=== PATIENT | male | born 1980 ===

== ENCOUNTER 2023-08-03 13:51 | Outpatient (AMB) | payer BC, SELFPAY ==
--- NOTE | 2023-08-03 14:03 | A.OFFVIS_ITS ---
Intake Visit Reasons: r 2nd opinion for nocturia and urinary frequency Intake Note: NEW Patient presents today to established treatment for a 2nd opinion on Nocturia & Urinary Frequency: Meds- None Allergies to Antibiotic- No Known Allergies Blood Thinner- None Post Void Residual: 18mL Supervising Film Or Videotape Editor Required: No Accompanied by: Self / Same As Patient Allergies No Known Allergies Allergy (Verified 08/03/23 14:14) Medication List - Last Reconciled 08/03/23 by Briseyda David MD No Known Home Meds HPI Comments Details: Michael is a 43-year-old male who is here for evaluation and 2nd opinion due to lower urinary symptoms of frequency, hesitancy and straining for urination. The patient states he has had these symptoms for many years. He states that he saw a urologist at [facility] a few years ago he does not remember the exact timeframe. He recalls being told there was a blockage in the urethra. He states he did some reading and read that a mesh with hernia repair could cause a blockage in the urethra. I discussed with the patient that I am not aware of hernia repairs with mesh causing a blockage within the urethra. The patient states that he has recurrent left inguinal hernia. The patient has seen a general surgeon who referred him to [facility] urology to have a urological evaluation prior to hernia repair. We do not have the records from [facility]. I have discussed further evaluation to evaluate for urethral stricture, and other causes for obstructive voiding symptoms. The patient states he prefers a male urologist. Will schedule follow-up with Dr. Caceres and we will request records from [facility] as well as any imaging he has had within the last 1-2 years. The patient filled out a medical release form. Urinalysis is negative for blood or leukocytes. No signs of infection. Bladder scan PVR 18 mL. [facility] Surgical History History of surgery Hx of splenectomy Hx of hernia repair Social History Alcohol intake: current Alcohol intake frequency: holidays/special occasions only Patient Tobacco Use Status: Never used Tobacco Review of Systems Const All systems reviewed & are unremarkable except as noted in HPI and below Reports no additional complaints Eyes Reports no additional complaints ENT Reports no additional complaints Card Reports no additional complaints Resp Reports no additional complaints GI Reports no additional complaints Reports as per HPI Musc Reports no additional complaints Skin/Breast Reports system reviewed and no additional complaints, except as documented Neuro Reports no additional complaints Psych Reports no additional complaints Endo Reports no additional complaints Tomi/Lymph Reports no additional complaints Aller/Immun Reports no additional complaints Physical Exam Const General: healthy appearing, no acute distress and well developed Orientation/consciousness: patient oriented x3 HEENT Head: Yes normocephalic and Yes atraumatic Eyes Conjunctivae: conjunctivae normal Neck Neck: Yes normal visual inspection Chest Chest palpation & inspection: normal inspection of the chest Resp Effort & Inspection: normal respiratory effort GI Inspection: Yes normal to inspection Skin General skin exam: no rashes or lesions noted Neuro General: patient oriented x3 Extrem General: No pedal edema Psych Appearance: grossly normal Affect: normal affect Office Procedures Post Void Residual Post Residual Void Post Void Residual (PVR): 18 [id number] Void Residual by ultrasound Results AMB Urinalysis, Automated UA Leukoctes 0 Jaguar/uL Last Edit by ADONAY Mccartney on 08/03/23 14:16 UA Nitrite Negative Last Edit by ADONAY Mccartney on 08/03/23 14:16 UA Urobilinogen 0.2 mg/dL Last Edit by ADONAY Mccartney on 08/03/23 14:1 6 UA Protein 15 mg/dL Last Edit by ADONAY Mccartney on 08/03/23 14:16 UA pH 8.0 Last Edit by ADONAY Mccartney on 08/03/23 14:16 UA Blood 0 Weston/uL Last Edit by ADONAY Mccartney on 08/03/23 14:16 UA Specific [place] 1.005 Last Edit by ADONAY Mccartney on 08/03/23 14: 16 UA Ketone Negative Last Edit by ADONAY Mccartney on 08/03/23 14:16 UA Bilirubin 0 mg/dL Last Edit by ADONAY Mccartney on 08/03/23 14:16 UA Glucose 0 mg/dL Last Edit by ADONAY Mccartney on 08/03/23 14:16 Quality Reporting (2019) Benign Prostatic Hyperplasia ([facility] 771) AUA symptom score: 25 Quality of life due to urinary symptoms: If you were to spend the rest of your life with your urinary condition the way it is now, how would you feel about that?: Terrible Results Reviewed Results Reviewed: Laboratory Last Values Urine pH (Auto) 8.0 08/03/23 14:15 Specific [place] (Auto) 1.005 08/03/23 14:15 Urine Protein (Auto) 15 mg/dL 08/03/23 14:15 Glucose (UA)(Auto) 0 mg/dL 08/03/23 14:15 Urine Ketones (Auto) Negative 08/03/23 14:15 Urine Blood (Auto) 0 Weston/uL 08/03/23 14:15 Urine Nitrite (Auto) Negative 08/03/23 14:15 Urine Bilirubin (Auto) 0 mg/dL 08/03/23 14:15 Urine Urobilinogen (Auto) 0.2 mg/dL 08/03/23 14:15 Leukocyte Esterase (Auto) 0 Jaguar/uL 08/03/23 14:15 Assessment & Plan Assessment & Plan (1) Nocturia: Code(s): R35.1 - Nocturia Category: Medical (2) Urinary frequency: Code(s): R35.0 - Frequency of micturition Category: Medical (3) Weak urinary stream: Code(s): R39.12 - Poor urinary stream Category: Medical Plan Follow-up with Dr. Caceres possible cystoscopy Request records from [facility]. Request imaging from [facility] Orders: Orders AMB Post Void Residual by ultrasound Today N39.8 - Other specified disorders of urinary system AMB Urinalysis Automated Today Z13.9 - Encounter for screening, unspecified Patient Instructions: The patient had an opportunity to ask questions regarding treatment plan. The patient expressed understanding and agreement with the above treatment plan. The patient is aware they should contact our office by phone for worsening of their current condition or the appearance of new symptoms. Compliance is encouraged with any medications and followup testing that is ordered. It is a privilege to be allowed the opportunity to participate in the urologic care of your patient. If you have any questions or concerns regarding treatment for the above conditions please do not hesitate to contact me. The office telephone contact is [phone]. This note is constructed in part using voice recognition software. While every effort has been made to ensure accuracy java golden gate developer errors may have been included. Yours sincerely, Briseyda David MD Coding Level of Care Code New Pt Level 4 (52775) Diagnoses Nocturia R35.1 Urinary frequency R35.0 Weak urinary stream R39.12 CPT Codes Post Residual Void - PVR CPT Code: 86735-Biis Void Residual by ultrasound ([id number]) AUA Symptom Score AUA Incomplete emptying - It does not feel like I empty my bladder all the way.: 4 - More than half the time Frequency - I have to go again less than two hours after I finish urinating.: 4 - More than half the time Intermittency - I stop and start again several times when I urinate.: 2 - Less than half the time Urgency - It is hard to wait when I have to urinate.: 4 - More than half the time Weak stream - I have a weak urinary stream.: 5 - Almost always Straining - I have to push or strain to begin urination.: 4 - More than half the time Nocturia - I get up to urinate after I go to bed until the time I get up in the morning.: 2 times AUA Symptom Score: 25 Quality of life due to urinary symptoms: If you were to spend the rest of your life with your urinary condition the way it is now, how would you feel about cynthia t?: Terrible Source: Neo EDWARDS, Ronnie COSME Jr, O'Mae MP, et al, and the Measurement Committee of the [place] [employer]. The [place] [employer] symptom index for benign prostatic hyperplasia. J Urol. 1992; 148: 3955-7429. Copyright 1992 [place] [employer]
== END 2023-08-03 15:10 | disposition home or self-care (01) ==
PROVIDERS: PCP Registered Nurse; Visit Provider Urology
DX: R35.1 Nocturia (principal); R35.0 Frequency of micturition; R39.12 Poor urinary stream; Z13.9 Encounter for screening, unspecified
CPT/HCPCS: 99204

== ENCOUNTER → 2023-08-03 13:51 | Outpatient (BNVA) | payer BC, SELFPAY | PROVIDERS: PCP Registered Nurse; Visit Provider Urology | DX: R35.1 Nocturia (principal); R35.0 Frequency of micturition; R39.12 Poor urinary stream | CPT/HCPCS: 51798; 81003 ==

== ENCOUNTER 2023-08-21 13:48 | Outpatient (AMB) | payer BC, SELFPAY ==
--- NOTE | 2023-08-21 14:04 | A.OFFVIS_ITS ---
Intake Visit Reasons: cysto(possible)labs Intake Note: Patient is Present for Cystoscopy Urology Med: None Antibiotic Allergy:None Blood Thinner: None URO- G Disposable Cystoscope lot: [id number] exp:04/16/2026 Allergies No Known Allergies Allergy (Verified 11/12/23 14:12) HPI Comments Details: Michael is a pleasant male. He is a patient of Dr. Novoa. He is seen for the following urologic conditions - question of blockage in urethra Cystoscopy today No evidence of restriction to flow Six-month follow-up for bladder stability Previous evaluation with [facility] Surgical History History of surgery Hx of splenectomy Hx of hernia repair Social History Alcohol intake: current Alcohol intake frequency: holidays/special occasions only Patient Tobacco Use Status: Never used Tobacco Office Procedures Cystoscopy Consent Discussed risk and benefit or proposed procedure with the patient. Information consent for procedure given to the patient. Discussed technical aspects, risks, benefits and alternatives in full. Addressed all of the patient's questions and concerns regarding the procedure. The patient demonstrated knowledge and understanding. They wish to proceed with this procedure. Preparation The patient was prepped in the usual manner. A sap bi developer was present and in the room. Genitalia was prepped with betadine solution in a sterile manner. Lidocaine Jelly 2% was placed into the urethra and 16Fr flexible Olympus cystoscope was inserted into the meatus after adequate lubrication. Procedure Cystoscopy performed using a disposable Urovue digital 16 Malay cystoscope. Meatus circumcised Urethra anterior-posterior urethra normal Prostatic Urethra unremarkable Bladder examination with retroflexion of cystoscope Bladder Orifices normal shape and position Bladder Capacity medium Trabeculations - Cellule Formation - Diverticulum Formation - Mucosal Erythema - Bladder Tumor - 68035-[id number] DISPOSABLE SCOPE URO-G FLEXIBLE SCOPE Procedure code (CPT) selection complete Office Meds lidocaine HCl 2 % mucosal jelly in applicator Performing Provider: Shola Caceres MD [facility] Administered by: Kavin Felipe LPN on 08/21/23 14:25 Dose Route Admin Location Dispensed Lot Number Expiration Date [facility] Poll Clerk 10 mL intra-urethral 10 mL nitrofurantoin monohydrate/macrocrystals 100 mg capsule Performing Provider: Shola Caceres MD Performing Location: [facility] Administered by: Kavin Felipe LPN on 08/21/23 14:25 Dose Route Admin Location Dispensed Lot Number Expiration Date NDC Poll Clerk 100 mg PO 1 cap naproxen 500 mg tablet Performing Provider: Shola Caceres MD Performing Location: [facility] [place] Administered by: Kavin Felipe LPN on 08/21/23 14:25 Dose Route Admin Location Dispensed Lot Number Expiration Date NDC Poll Clerk 500 mg PO 1 tab Results AMB Urinalysis, Automated UA Leukoctes 0 Jaguar/uL Last Edit by ADONAY Haywood on 08/21/23 14:27 UA Nitrite Negative Last Edit by Nelida Flores [facility] on 08/21/23 14:27 UA Urobilinogen 0.2 mg/dL Last Edit by Nelida Flores A on 08/21/23 14:2 7 UA Protein 0 mg/dL Last Edit by Nelida Flores A on 08/21/23 14:27 UA pH 6.0 Last Edit by Nelida Flores [facility] on 08/21/23 14:27 UA Blood 0 Weston/uL Last Edit by Nelida Flores [facility] on 08/21/23 14:27 UA Specific [place] 1.020 Last Edit by Nelida Flores A on 08/21/23 14: 27 UA Ketone Negative Last Edit by Nelida Flores A on 08/21/23 14:27 UA Bilirubin 0 mg/dL Last Edit by Nelida Flores A on 08/21/23 14:27 UA Glucose 0 mg/dL Last Edit by Nelida Flores [facility] on 08/21/23 14:27 Results Reviewed Results Reviewed: Laboratory Last Values Urine pH (Auto) 6.0 08/21/23 14:12 Specific [place] (Auto) 1.020 08/21/23 14:12 Urine Protein (Auto) 0 mg/dL 08/21/23 14:12 Glucose (UA)(Auto) 0 mg/dL 08/21/23 14:12 Urine Ketones (Auto) Negative 08/21/23 14:12 Urine Blood (Auto) 0 Weston/uL 08/21/23 14:12 Urine Nitrite (Auto) Negative 08/21/23 14:12 Urine Bilirubin (Auto) 0 mg/dL 08/21/23 14:12 Urine Urobilinogen (Auto) 0.2 mg/dL 08/21/23 14:12 Leukocyte Esterase (Auto) 0 Jaguar/uL 08/21/23 14:12 Assessment & Plan Assessment & Plan (1) Urinary frequency: Code(s): R35.0 - Frequency of micturition Category: Medical (2) Weak urinary stream: Code(s): R39.12 - Poor urinary stream Category: Medical (3) Nocturia: Code(s): R35.1 - Nocturia Category: Medical Plan Six-month follow-up Orders: Orders AMB Urinalysis Automated 08/21/23 Z13.9 - Encounter for screening, unspecified AMB Cystoscopy 08/21/23 R35.0 - Frequency of micturition Patient Instructions: Imaging studies, laboratory and physical exam results were discussed and reviewed in detail. No major barriers to patient understanding were identified. An opportunity to ask questions regarding the treatment plan was provided. All questions were answered. The patient expressed understanding and agreement with the above treatment plan. The patient is aware they should contact our office by phone for worsening of their current condition or the appearance of new urologic symptoms. Compliance is encouraged with any medications and followup testing that is ordered. It is a privilege to participate in the urologic care of your patient. If you have any questions or concerns regarding treatment for the above conditions, or other urologic issues, please do not hesitate to contact me. The office telephone contact is [phone]. This note is constructed using voice recognition software. While every effort has been made to ensure accuracy machine assembler errors may have been included. Yours sincerely, Dr Shola Caceres MD, J[facility] - Urology Providers of Expert, Compassionate Care for the Genitourinary System Coding Level of Care Code Est Pt Level 3 (75202) Diagnoses Urinary frequency R35.0 Weak urinary stream R39.12 Nocturia R35.1 CPT Codes Cystoscopy - CPT: 26527-Cbtjzusmnd ([id number])
== END 2023-08-21 15:02 | disposition home or self-care (01) ==
PROVIDERS: PCP Registered Nurse; Referring Provider Registered Nurse; Visit Provider Urology
DX: R35.0 Frequency of micturition (principal); R39.12 Poor urinary stream; R35.1 Nocturia; Z13.9 Encounter for screening, unspecified
CPT/HCPCS: 52000

== ENCOUNTER → 2023-08-21 13:48 | Outpatient (BNVA) | payer BC, SELFPAY | PROVIDERS: PCP Registered Nurse; Visit Provider Urology | DX: R35.0 Frequency of micturition (principal); R39.12 Poor urinary stream; R35.1 Nocturia | CPT/HCPCS: 52000; 81003 ==

== ENCOUNTER 2023-09-08 13:36 | Outpatient (AMB) | payer BC, SELFPAY ==
--- NOTE | 2023-09-08 13:40 | A.OFFVIS_ITS ---
Vital Signs 09/08/23 13:43 Height 5 ft 10 in Weight 232 lb BMI 33.3 BP 134/67 Blood Pressure Location Lt brachial Position Sitting Pulse 63 Intake Visit Reasons: hernia Intake Note: Patient is seen in office for evaluation and treatment of a recurrent left in guinal hernia. Pt c/o: had prior LIH repair in [facility] yrs ago, had imagining done recently due to recurrent hernia, was schedule to have procedure at [facility] but surgeon retired C2 Tactical Analysis Technician Required: No Accompanied by: Self / Same As Patient Allergies No Known Allergies Allergy (Verified 09/08/23 13:43) HPI Comments Details: 43-year-old male patient presenting with complaints of pain and swelling in the left groin. He he previously underwent repair of a left inguinal hernia at [facility] approximately 11 years ago. He was well until recently when he began to note pain and swelling in the left groin. This was at a time when he was doing heavy lifting and working out. He was subsequently stopped working out and reports gaining a lot of weight as a result. He was laid off from work and further noted improvement in his symptoms. He still notes a swelling in the left groin and is able to push this in with light pressure. He denies nausea, vomiting, fever, chills, diarrhea or constipation. He did previously have nausea when performing heavy lifting. A CT abdomen and pelvis performed at [facility] on 10/27/2022 revealed evidence of a prior left inguinal hernia repair with no evidence of hernia recurrence. A small fat containing umbilical hernia was also noted. He presents today for evaluation of a recurrent left inguinal hernia. [facility] Surgical History History of surgery Hx of splenectomy Hx of hernia repair Social History Alcohol intake: current Alcohol intake frequency: holidays/special occasions only Patient Tobacco Use Status: Never used Tobacco Physical Exam Vital Signs: Last Vital Signs Pulse 63 09/08/23 13:43 BP 134/67 09/08/23 13:43 Assessment & Plan Assessment & Plan (1) Recurrent left inguinal hernia: Code(s): K40.91 - Unilateral inguinal hernia, without obstruction or gangrene, recurrent Category: Medical Plan 43-year-old male patient presenting with a reducible recurrent left inguinal hernia which is causing discomfort. This was confirmed on examination. We discussed the repair of this recurrent left inguinal hernia with mesh. After reviewing the procedure, risks, and alternatives, consents to a repair of this recurrent left inguinal hernia with mesh. Coding Level of Care Code New Pt Level 4 (92518) Diagnoses Recurrent left inguinal hernia K40.91
[2023-09-08 13:43] VITALS: BP 134/67; PULSE 63; BMI 33.3
== END 2023-09-08 13:47 | disposition home or self-care (01) ==
LOC: HO.HGS 13:37
PROVIDERS: PCP Physician Assistant; Visit Provider Surgery
DX: K40.91 Unilateral inguinal hernia, without obstruction or gangrene, recurrent (principal)
CPT/HCPCS: 99204

== ENCOUNTER → 2023-09-08 13:36 | Outpatient (BNVA) | payer BC, SELFPAY | PROVIDERS: PCP Physician Assistant; Visit Provider Surgery ==

== ENCOUNTER 2023-11-12 14:00 | Outpatient (AMB) | payer BC, SELFPAY ==
[2023-11-12 14:11] VITALS: BP 162/79; PULSE 63; BMI 32.0
--- NOTE | 2023-11-12 14:11 | MHC.OFFVIS ---
Vital Signs 11/12/23 14:11 Height 5 ft 10 in Weight 223 lb BMI 32.0 BP 162/79 H Blood Pressure Location Rt brachial Position Sitting Pulse 63 Intake Visit Reasons: left inguinal hernia Intake Note: Patient here to discuss LIH repair. Patient c/o: diarrhea, pain on LLQ. Regional Safety Manager Required: No Accompanied by: Self / Same As Patient Allergies No Known Allergies Allergy (Verified 11/12/23 14:12) HPI Comments Details: Patient presents for symptomatic recurrent left inguinal hernia. He was seen by Dr. Torres few months ago and because of insurance issues he now represents because he needed authorization. Is had a left inguinal hernia repair open technique a proximally 12 years ago. He now presents with a recurrence. He has had extensive workup for this and his symptoms were also progressing and would like to have this repaired. Patient was otherwise tolerating a diet, having regular bowel habits. No other GI issues or complaints. 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 Chart was reviewed patient evaluate [facility] Surgical History History of surgery Hx of splenectomy Hx of hernia repair Social History Alcohol intake: current Alcohol intake frequency: holidays/special occasions only Patient Tobacco Use Status: Never used Tobacco Physical Exam Vital Signs: Last Vital Signs Pulse 63 11/12/23 14:11 BP 162/79 H 11/12/23 14:11 BMI result Body Mass Index 32.0 Chest Other: Chest sounds bilaterally, HS 1 in 2 GI Other: Patient was examined both supine and standing with Valsalva. Abdomen corpulent, soft. Small reducible umbilical hernia which the patient states was asymptomatic. Right groin negative. Genitalia within normal limits. A focal area of recurrence left inguinal hernia reducible. Assessment & Plan Assessment & Plan (1) Recurrent left inguinal hernia: Code(s): K40.91 - Unilateral inguinal hernia, without obstruction or gangrene, recurrent Category: Surgical Plan A lengthy discussion was had with the patient regarding the risks, benefits and alternatives of repair of recurrent left inguinal hernia which includes but not limited to bleeding, infection, recurrence, numbness, pain, scarring the patient wishes to proceed. All questions answered. Arrangements were made for this. Coding Level of Care Code New Pt Level 5 (08154) Diagnoses Recurrent left inguinal hernia K40.91
== END 2023-11-12 14:31 | disposition home or self-care (01) ==
PROVIDERS: PCP Physician Assistant; Visit Provider Surgery
DX: K40.91 Unilateral inguinal hernia, without obstruction or gangrene, recurrent (principal)
CPT/HCPCS: 99204; 99214

== ENCOUNTER → 2023-11-12 14:00 | Outpatient (BNVA) | payer BC, SELFPAY | PROVIDERS: PCP Physician Assistant; Visit Provider Surgery ==

== ENCOUNTER 2023-11-20 08:01 | Day surgery (SDC) | payer BC, SELFPAY ==
--- NOTE | 2023-11-19 15:25 | MHC.SHP ---
Pre-Procedural Eval Section A - 24 Hr Update-Section A only Date of Service: 11/20/23 The patient is an INPATIENT: No Changes since office visit: No Cold of Flu in the past 2 weeks, No New Medical Problems, No Changes in Medication and No Patient answered all questions Section B - Complete if H&P > 30 days Chief Complaint: Unilateral inguinal hernia, without obstruction or Allergies: Allergies Allergy/AdvReac Type Severity Reaction Status Date / Time No Known Allergies Allergy Verified 11/12/23 14:12 Review of Systems Sugical H&P ROS: Negative: Constitution, Cardiovascular, Respiratory, Neurological, Psychiatric, Hem-Onc, Allergic/Immunologic, Gastrointestinal, Genitourinary, Musculoskeletal, Integumentary, Endocrine and Eyes/Ears/Nose/Throat Exam Surgical H&P Exam: Normal: HEENT, Normal: Heart, Normal: Lungs, Normal: Extremities, Normal: Abdomen, Normal: Skin and Normal: Neurological Plan I have reviewed the history and physical and performed a pertinent physical examination on my patient. No changes have occurred unless specified. Time Spent With Patient Time: Total time managing care of this patient today ____ minutes.
[2023-11-20] VITALS (11 sets, daily range): BP systolic 102–136; BP diastolic 53–67; PULSE 57–88; RESP 12–16; TEMP 36.4–36.5; O2SAT 93–97; BMI 33.0
[2023-11-20] MEDS: Lactated Ringers 1,000 ML 100 ML IVCONT (08:56)
--- NOTE | 2023-11-20 09:05 | HO.ANESPROP2 ---
Documented by User: Fabi Lemons NP 11/19/23 10:17 HPI - Anesthesia Eval Consult details Narrative: 43yo M for Left Open Repair Hernia Inguinal Reducible with mesh [facility] Active Problems Active Problems: All Active Problems Recurrent left inguinal hernia (Acute) Weak urinary stream (Acute) Urinary frequency (Acute) Nocturia (Acute) Surgical History Surgical History History of surgery Hx of splenectomy Hx of hernia repair Social History Social History Alcohol intake: current Alcohol intake frequency: holidays/special occasions only Patient Tobacco Use Status: Never used Tobacco Advance Directives: No Advance Directives Information Provided: Yes Meds Allergies Allergy/AdvReac Type Severity Reaction Status Date / Time peanut Allergy Anaphylaxis Verified 11/20/23 08:22 Home Medications ?Medication ?Instructions ?Recorded ?Confirmed ?Last Taken ?Type cholecalciferol (vitamin D3) 50 50 mcg PO DAILY 11/12/23 11/13/23 Unknown History mcg (2,000 unit) capsule epinephrine 0.3 mg/0.3 mL IM 11/12/23 11/13/23 Unknown History injection, auto-injector Assessment and Plan Assessment Anesthesia Assessment: Chart Reviewed Documented by User: Merissa Moore DO 11/20/23 09:09 HPI - Anesthesia Eval Consult details Narrative: 43yo M for Left Open Repair Hernia Inguinal Reducible with mesh. Smokes marijuana a few times per week. PMFSH Family History Family history of problems with anesthesia: No Surgical History Surgical History History of surgery Hx of splenectomy Hx of hernia repair History of Problems with Anesthesia: No Social History Social History Alcohol intake: current Alcohol intake frequency: holidays/special occasions only Patient Tobacco Use Status: Never used Tobacco Advance Directives: No Advance Directives Information Provided: Yes Meds Allergies Allergy/AdvReac Type Severity Reaction Status Date / Time peanut Allergy Anaphylaxis Verified 11/20/23 08:22 Home Medications ?Medication ?Instructions ?Recorded ?Confirmed ?Last Taken ?Type cholecalciferol (vitamin D3) 50 50 mcg PO DAILY 11/12/23 11/13/23 Unknown History mcg (2,000 unit) capsule epinephrine 0.3 mg/0.3 mL IM 11/12/23 11/13/23 Unknown History injection, auto-injector Exam Exam Date and Time: 11/20/23 09 Airway Mallampati Class: I TM Dist: >3cm Neck ROM: Full Loose/Missing/Broken Teeth: No (patient denies any loose or broken teeth) Heart: S1S2 Lungs: CTAB Assessment and Plan Assessment Anesthesia Assessment: Anesthesia Plan Discussed and Chart Reviewed Final Anesthetic Review Family History of Problems with Anesthesia: No History of Problems with Anesthesia: No NPO: Yes ASA Class: II Final Preanesthetic Review: No Changes in Pt Med Stat, Meds/Allgs Chart Reviewed, Consent Obtained/Reviewed and Anes Risks/Benef Reviewed Patient Risk: Low Procedure Risk: Low Anesthetic Plan Anesthetic Plan: MAC: and Agree w/ Assess. and Plan Disposition: Standard PACU
--- NOTE | 2023-11-20 11:17 | P.OP_ITS ---
Operative Note Operative Note Date of Service: 11/20/23 Narrative: Preoperative diagnosis: [] Recurrent left inguinal hernia Postop diagnosis: [] The same Procedure [] open left inguinal herniorrhaphy with Bard mesh Surgeon: [] Evelio Bookmobile Clerk: [] Kady Type of Anesthesia: [] General Indication for surgery: [] Marked cicatrization from patient's prior hernia surgery. Prior old mesh demonstrated. Recurrent indirect left inguinal hernia Findings: [] Patient brought to the operating room, placed on operative table in supine position, after an adequate level general anesthesia was induced, the patient's abdomen which was moderately corpulent was prepped and draped in usual sterile fashion. Patient underwent ilioinguinal block with 0.5% Marcaine/1% lidocaine at the beginning of the case. Using a small left para inguinal incision, this carried down through skin, subcutaneous tissue, Marquez's fascia. Marked scarring as noted above was encountered secondary to the patient's previous surgery. Ilioinguinal nerve was identified and retracted in the field and preserved throughout the procedure. Old mesh was demonstrated in the inguinal floor. Spermatic cord was dissected free from the old mesh and superior and inferior external oblique fascia and retracted from the field. Exploration of the inguinal canal and inguinal floor demonstrated a recurrent indirect left inguinal hernia. This was reduced. A Bard mesh was placed in this defect and sutured inferiorly to the inguinal ligament, and superiorly to the transversalis fascia using interrupted 0 Ethibond suture. At completion of procedure, wound was irrigated, and secured hemostasis. Wound was closed in the following manner; external oblique fascia was closed using running 2-0 Vicryl suture. Marquez's fascia was reapproximated using interrupted 3-0 Vicryl suture. Interrupted inverted deep dermal 3-0 Vicryl sutures followed by running subcuticular 4-0 Vicryl sutures were placed. Steri-Strips and sterile dressings were applied. Wound was infiltrated with 0.5% Marcaine/1% lidocaine at completion. Sponge, needle, and instrument counts reported correct. Patient tolerated the procedure well and emerged from anesthesia stable condition. Ipsilateral testicle was intrascrotal at completion. EBL minimal
[2023-11-20] MEDS: oxyCODONE HCl Immed Release 5 MG TABLET PO (12:12)
[2023-11-20] MEDS: Acetaminophen 325 MG TABLET 650 MG PO (12:12)
[2023-11-20] MEDS: fentaNYL citrate/PF 100 MCG/2 ML VIAL 50 MCG IVPUSH ×3 (12:15→12:36)
== END 2023-11-20 13:25 | disposition home or self-care (01) ==
PROVIDERS: Visit Provider Surgery
PROC: (CPT 49520; principal; 2023-11-20 10:50)
DX: K40.91 Unilateral inguinal hernia, without obstruction or gangrene, recurrent (principal); Z98.890 Other specified postprocedural states; Z79.899 Other long term (current) drug therapy; Z91.010 Allergy to peanuts
CPT/HCPCS: 49520; C1781; J0690; J1100; J2250; J2405; J2704; J2795; J3010

== ENCOUNTER → 2023-11-20 08:01 | Outpatient (BNV) | payer BC, SELFPAY | PROVIDERS: Visit Provider Surgery | DX: K40.91 Unilateral inguinal hernia, without obstruction or gangrene, recurrent (principal) | CPT/HCPCS: 49520 ==

== ENCOUNTER 2023-12-01 11:16 | Outpatient (AMB) | payer BC, SELFPAY ==
--- NOTE | 2023-12-01 11:20 | A.OFFVIS_ITS ---
Intake Visit Reasons: S/P LIH w/mesh Intake Note: Patient here s/p LIH w/mesh on 11-20-2023. Reports incisions healing well. Patient c/o: removed steri strips. First day of wearing belt. Still taking rx pain meds as needed. Business Architect Required: No Accompanied by: Self / Same As Patient Allergies peanut Allergy (Verified 12/01/23 11:21) Anaphylaxis HPI Comments Details: Patient is here for follow-up status post recurrent left inguinal hernia repair. All things considered he is doing relatively well. He is tolerating a diet. Having regular bowel habits. He has incisional discomfort which is improving. He is increasing his activity level. [facility] Medical History (Updated 12/01/23 @ 08:22 by ADONAY Marc) Left inguinal hernia (11/20/23) Surgical History (Updated 12/01/23 @ 11:31 by Vito Fraser MD) History of surgery Hx of splenectomy Hx of hernia repair Social History Are you a primary pediatric care coordinator to a significant other at home: No Do you presently have visiting nurse or other home services: No Alcohol intake: current Alcohol intake frequency: holidays/special occasions only Patient Tobacco Use Status: Never used Tobacco Physical Exam GI Other: Abdomen is soft. Incision clean dry and intact healing very well Assessment & Plan Assessment & Plan (1) Postoperative hernia: Code(s): K43.2 - Incisional hernia without obstruction or gangrene Category: Surgical Plan Patient has been given local instructions including avoiding strenuous activities for next few weeks time. He will see me in 3 weeks for follow-up or p.r.n.. He will be given a note for out of work and till next visit. All questions answered. Coding Level of Care Code Global (45665) Diagnoses Postoperative hernia K43.2
== END 2023-12-01 11:33 | disposition home or self-care (01) ==
PROVIDERS: PCP Physician Assistant; Visit Provider Surgery
DX: K43.2 Incisional hernia without obstruction or gangrene (principal)
CPT/HCPCS: 99024

== ENCOUNTER → 2023-12-01 11:16 | Outpatient (BNVA) | payer BC, SELFPAY | PROVIDERS: PCP Physician Assistant; Visit Provider Surgery ==

== ENCOUNTER 2023-12-22 08:39 | Outpatient (AMB) | payer BC, SELFPAY ==
--- NOTE | 2023-12-22 08:42 | A.OFFVIS_ITS ---
Intake Visit Reasons: 3wk S/P LIH w/mesh Intake Note: Patient here 4wk s/p LIH w/mesh. Reports incisions healing well. Patient c/o: pain when sneezing, bending. Ran out of rx pain meds. Airplane Cover Maker Required: No Accompanied by: Self / Same As Patient Allergies peanut Allergy (Verified 12/22/23 08:43) Anaphylaxis HPI Comments Details: Patient presents for follow-up. He has a proximally 3 weeks status post left inguinal hernia repair. Aside from incisional discomfort which is improving is otherwise doing well. Starting a diet. Having regular bowel habits. He is increasing his activity level. 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 [facility] Medical History (Updated 12/01/23 @ 08:22 by ADONAY Marc) Left inguinal hernia (11/20/23) Surgical History (Updated 12/22/23 @ 08:53 by Vito Fraser MD) History of surgery Hx of splenectomy Hx of hernia repair Social History Are you a primary companion caregiver to a significant other at home: No Do you presently have visiting nurse or other home services: No Alcohol intake: current Alcohol intake frequency: holidays/special occasions only Patient Tobacco Use Status: Never used Tobacco Physical Exam GI Other: Abdomen moderately corpulent, soft, benign. Incision clean dry and intact healing well Assessment & Plan Assessment & Plan (1) Status post inguinal hernia repair: Code(s): Z98.890 - Other specified postprocedural states; Z87.19 - Personal history of other diseases of the digestive system Category: Medical Plan Once again reviewed local wound instructions as well as avoiding strenuous activities next few weeks time. Patient will be given note for out of work incisional light duty to return in the roughly 3 weeks time. He will otherwise follow-up p.r.n.. All questions answered. Coding Level of Care Code Global (27026) Diagnoses Status post inguinal hernia repair Z98.890; Z87.19
== END 2023-12-22 09:09 | disposition home or self-care (01) ==
PROVIDERS: PCP Physician Assistant; Visit Provider Surgery
DX: Z98.890 Other specified postprocedural states (principal); Z87.19 Personal history of other diseases of the digestive system
CPT/HCPCS: 99024

== ENCOUNTER → 2023-12-22 08:39 | Outpatient (BNVA) | payer BC, SELFPAY | PROVIDERS: PCP Physician Assistant; Visit Provider Surgery ==

== ENCOUNTER 2024-01-19 08:24 | Outpatient (AMB) | payer BC, SELFPAY ==
--- NOTE | 2024-01-19 08:28 | MHC.OFFVIS ---
Vital Signs 01/19/24 08:34 Height 5 ft 10 in Weight 228 lb BMI 32.7 Intake Visit Reasons: pain at surg site with coughing, etc Intake Note: This patient presents for surgical site pain left groin. Pt c/o; reports pain left groin when sneezing, coughing, hopping in the car or with any sudden movement. Bulldozer/Loader/Compactor/Scraper Required: No Accompanied by: Self / Same As Patient Allergies peanut Allergy (Verified 01/19/24 08:36) Anaphylaxis HPI Comments Details: Patient presents for follow-up. He has roughly 7 weeks postop status post left inguinal hernia repair. All things considered he is doing well. Tolerating diet. Having regular bowel habits. He is increasing his activity level. He has discomfort at the incision site or actually just below it when he coughs or sneezes. [facility] Medical History Left inguinal hernia (11/20/23) Surgical History History of surgery Hx of splenectomy Hx of hernia repair Social History Are you a primary child care aide to a significant other at home: No Do you presently have visiting nurse or other home services: No Alcohol intake: current Alcohol intake frequency: holidays/special occasions only Patient Tobacco Use Status: Never used Tobacco Physical Exam Vital Signs: BMI result Body Mass Index 32.7 GI Other: Patient was examined both supine and standing with Valsalva. Right groin negative. Abdomen corpulent, soft, benign point left groin incision clean dry and intact. No evidence of any recurrence or infection. Assessment & Plan Assessment & Plan (1) Status post inguinal hernia repair: Code(s): Z98.890 - Other specified postprocedural states; Z87.19 - Personal history of other diseases of the digestive system Category: Medical Plan At present, no acute surgical issues. Patient was reassured. Most likely either strained his groin or over did it and at present we will treat him conservatively. He will be given a note for 2 weeks out until he resumes work. If there was a problem between now and then he can call the office. Otherwise he will follow-up p.r.n.. All questions answered. Coding Level of Care Code Global (23637) Diagnoses Status post inguinal hernia repair Z98.890; Z87.19
[2024-01-19 08:34] VITALS: BMI 32.7
== END 2024-01-19 09:08 | disposition home or self-care (01) ==
LOC: HO.HGS 08:25
PROVIDERS: PCP Physician Assistant; Visit Provider Surgery
DX: Z98.890 Other specified postprocedural states (principal); Z87.19 Personal history of other diseases of the digestive system
CPT/HCPCS: 99024

== ENCOUNTER → 2024-01-19 08:24 | Outpatient (BNVA) | payer BC, SELFPAY | PROVIDERS: PCP Physician Assistant; Visit Provider Surgery ==

== ENCOUNTER 2024-02-02 08:43 | Outpatient (AMB) | payer BC, SELFPAY ==
--- NOTE | 2024-02-02 08:56 | A.OFFVIS_ITS ---
Vital Signs 02/02/24 08:57 Height 5 ft 10 in Weight 228 lb BMI 32.7 BP 122/76 Blood Pressure Location Rt brachial Position Sitting Pulse 76 Intake Visit Reasons: Pain incisional site Intake Note: Patient scheduled today's appointment c/o pain at incisional site. Hs of LIH repair in November. Patient c/o: still experiencing pain after surgery. Equipment Service Engineer Required: No Accompanied by: Self / Same As Patient Allergies peanut Allergy (Verified 02/02/24 08:58) Anaphylaxis HPI Comments Details: Patient presents for follow-up. He has no discomfort at his hernia site. He complains of suprapubic left-sided numbness which has been persistent. He is otherwise tolerating a diet. Having regular bowel habits. His symptoms he says are aggravated with extremes of motion. [facility] Medical History Left inguinal hernia (11/20/23) Surgical History History of surgery Hx of splenectomy Hx of hernia repair Social History Are you a primary veterinarian laboratory animal care to a significant other at home: No Do you presently have visiting nurse or other home services: No Alcohol intake: current Alcohol intake frequency: holidays/special occasions only Patient Tobacco Use Status: Never used Tobacco Physical Exam Vital Signs: Last Vital Signs Pulse 76 02/02/24 08:57 BP 122/76 02/02/24 08:57 BMI result Body Mass Index 32.7 GI Other: Abdomen [place], soft. Incision clean dry and intact healing very well. No evidence of any infection recurrence. The patient has left suprapubic area numbness with palpation. Assessment & Plan Assessment & Plan (1) Status post left inguinal hernia repair: Code(s): Z98.890 - Other specified postprocedural states; Z87.19 - Personal history of other diseases of the digestive system Category: Medical (2) Inguinodynia, left: Code(s): R10.32 - Left lower quadrant pain Category: Medical Plan Once again discussed with the patient that he has no evidence of recurrence or infection. This is most likely related to either cutaneous nerves through the incision which was sacrificed or perhaps deeper nerves which are causing scar tissue from the hernia mesh. At present, no surgical intervention would relieve his symptoms. I once again recommend just tincture of time. It can take 6 months to a year before final determination of his symptomatology whether it is transient or permanent. Discussed with the patient that he had a recurrent left hernia repair and there was significant cicatrization and scarring which I think is part of the etiology for his current symptoms. Patient does not feel he is ready to go back to work. I suggest that if this persists for 6 months or more a pain clinic consultation can be obtained. He would like to do so now. Arrangements were made for this. Orders: Referrals Pain Management Referral K43.2 - Incisional hernia without obstruction or gangrene, Z87.19 - Personal history of other diseases of the digestive system, Z98.890 - Other specified postprocedural states Coding Level of Care Code Global (49605) Diagnoses Status post left inguinal hernia repair Z98.890; Z87.19 Inguinodynia, left R10.32
[2024-02-02 08:57] VITALS: BP 122/76; PULSE 76; BMI 32.7
== END 2024-02-02 09:22 | disposition home or self-care (01) ==
PROVIDERS: PCP Physician Assistant; Visit Provider Surgery
DX: Z98.890 Other specified postprocedural states (principal); Z87.19 Personal history of other diseases of the digestive system; R10.32 Left lower quadrant pain
CPT/HCPCS: 99024

== ENCOUNTER 2024-02-24 08:31 | Outpatient (AMB) | payer BC, SELFPAY ==
--- NOTE | 2024-02-24 08:34 | MHC.OFFVIS ---
Intake Visit Reasons: 6M PVR Intake Note: Patient is present for 6m PVR Urology Medication:none Antibiotic Allergy:none Blood Thinner:none Last PVR: Todays PVR:0ML'S Building Trades Instructor Required: No Allergies peanut Allergy (Verified 02/24/24 08:36) Anaphylaxis HPI Comments Details: Michael is a pleasant male. He is a patient of Dr. Novoa. He is seen for the following urologic conditions - question of blockage in urethra - bladder instability PVR today is 0 cc Medications none Does state has weakness of stream and spraying Particularly at night Urge during the day Cystoscopy previously previously - No evidence of restriction to flow Previous evaluation with [facility] Discussed possible urodynamics Will trial tadalafil 5 mg PFSH Medical History Left inguinal hernia (11/20/23) Surgical History History of surgery Hx of splenectomy Hx of hernia repair Social History Are you a primary primary care md to a significant other at home: No Do you presently have visiting nurse or other home services: No Alcohol intake: current Alcohol intake frequency: holidays/special occasions only Patient Tobacco Use Status: Never used Tobacco Review of Systems Const Denies chills and Denies fever(s) Card Reports no additional complaints and Denies syncope Resp Denies cough GI Denies abdominal pain and Denies heartburn Reports as per HPI and Denies change in libido Neuro Denies syncope Psych Denies change in libido Endo Denies change in libido Physical Exam Const General: cooperative, healthy appearing, comfortable and no acute distress Orientation/consciousness: patient oriented x3 HEENT Face and sinus: Yes normal facial exam Mouth: moist mucous membranes Neck Neck: Yes normal visual inspection, Yes full ROM and Yes trachea midline Chest Chest palpation & inspection: normal inspection of the chest Resp Effort & Inspection: normal respiratory effort, able to speak in complete sentences and no respiratory distress GI Inspection: Yes normal to inspection Back/Spine/Pelvis Cervical Spine: normal cervical lordosis Thoracic/Lumbar Spine: thoracic and lumbar spine normal to inspection Skin General skin exam: no rashes or lesions noted Neuro General: patient oriented x3, gait normal, tone normal and moves all extremities Extrem General: Yes normal to inspection and Yes capillary refill normal Office Procedures Post Void Residual Post Residual Void Post Void Residual (PVR): 0 95121-Ugyj Void Residual by ultrasound Assessment & Plan Assessment & Plan (1) Nocturia: Code(s): R35.1 - Nocturia Category: Medical (2) Urinary frequency: Code(s): R35.0 - Frequency of micturition Category: Medical Plan Three-month follow-up tele Orders: Orders AMB Urinalysis Automated Today Z13.9 - Encounter for screening, unspecified Medications: New tadalafil Daily BIN PCN Group [facility] [address] [id number] 5 mg PO DAILY 90 days 90 tabs 0RF sexual activity R35.0 - Frequency of micturition Patient Instructions: Imaging studies, laboratory and physical exam results were discussed and reviewed in detail. No major barriers to patient understanding were identified. An opportunity to ask questions regarding the treatment plan was provided. All questions were answered. The patient expressed understanding and agreement with the above treatment plan. The patient is aware they should contact our office by phone for worsening of their current condition or the appearance of new urologic symptoms. Compliance is encouraged with any medications and followup testing that is ordered. It is a privilege to participate in the urologic care of your patient. If you have any questions or concerns regarding treatment for the above conditions, or other urologic issues, please do not hesitate to contact me. The office telephone contact is [phone]. This note is constructed using voice recognition software. While every effort has been made to ensure accuracy brand representative errors may have been included. Yours sincerely, Dr Shola Caceres MD, [facility] - Urology Providers of Expert, Compassionate Care for the Genitourinary System Coding Level of Care Code Est Pt Level 4 (13060) Diagnoses Nocturia R35.1 Urinary frequency R35.0 CPT Codes Post Residual Void - PVR CPT Code: 79297-Cupm Void Residual by ultrasound ([id number])
== END 2024-02-24 09:10 | disposition home or self-care (01) ==
PROVIDERS: PCP Physician Assistant; Visit Provider Urology
DX: R35.1 Nocturia (principal); R35.0 Frequency of micturition
CPT/HCPCS: 99214

== ENCOUNTER → 2024-02-24 08:31 | Outpatient (BNVA) | payer BC, SELFPAY | PROVIDERS: PCP Physician Assistant; Visit Provider Urology | DX: R39.12 Poor urinary stream (principal); R35.1 Nocturia; R35.0 Frequency of micturition | CPT/HCPCS: 51798 ==

== ENCOUNTER 2024-02-29 11:37 | Outpatient (AMB) | payer BC, SELFPAY ==
--- NOTE | 2024-02-29 11:39 | A.OFFVIS_ITS ---
Vital Signs 02/29/24 11:44 Height 5 ft 10 in Weight 228 lb BMI 32.7 BP 122/72 Blood Pressure Location Rt brachial Position Sitting Pulse 72 Intake Visit Reasons: post op pain at surgical site Intake Note: Patient tucked into scheduled this morning c/o pain at incisional site. Has appointment with pain management tomorrow 03-01-24. Payroll Coordinator Required: No Accompanied by: Self / Same As Patient Allergies peanut Allergy (Verified 02/29/24 11:43) Anaphylaxis HPI Comments Details: Patient presents with pinpoint pain involving his left inguinal area just lateral to his scrotum on the left side. This has been the same area has caused him discomfort in the past. Patient finally received an appointment with the chronic pain clinic for tomorrow. He is otherwise tolerating his diet. He is having regular bowel habits. As noted before with extremes of motion he complains of the left groin pain. [facility] Medical History Left inguinal hernia (11/20/23) Surgical History History of surgery Hx of splenectomy Hx of hernia repair Social History Are you a primary acute care registered nurse to a significant other at home: No Do you presently have visiting nurse or other home services: No Alcohol intake: current Alcohol intake frequency: holidays/special occasions only Patient Tobacco Use Status: Never used Tobacco Physical Exam Vital Signs: Last Vital Signs Pulse 72 02/29/24 11:44 BP 122/72 02/29/24 11:44 BMI result Body Mass Index 32.7 GI Other: Patient was examined both supine and standing with Valsalva. Abdomen benign. Right groin negative. Left groin hernia incision very well healed. No evidence of any recurrence or infection. Point tenderness just lateral to his left scrotum. Assessment & Plan Assessment & Plan (1) Inguinodynia, left: Code(s): R10.32 - Left lower quadrant pain Category: Surgical Plan Current plan is for the patient to see chronic pain clinic tomorrow indirect further therapy based on their recommendations. All questions answered Coding Level of Care Code Est Pt Level 4 (84465) Complex EM visit Add On G2211 Diagnoses Inguinodynia, left R10.32
--- OUTSIDE RECORDS SUMMARY | 2024-02-29 11:39 | XMS_ITS ---
Author Organization [facility] Address [address] [place] [address] Care Team Providers Care Tube Wrapper Name Role Phone VijayMorena urbina [phone] REASON FOR VISIT US results Encounters Encounter Location Date Provider Diagnosis [address] [facility] [address] [place] [address] 02/24/2024 Morena Jarvis PLAN OF TREATMENT Next Appt Details Provider Name:Morena Jarvis, 0 05/04/2024 01:00:00 PM, [address] [facility], [address], [place], [address], Progress Notes * Mack MCKEONOB: 9 (43 yo M)Acc No.[id number]:02/24/2024 Patient:??MIKE Jeanadilene :1980?Age:43 Y?Sex:Ethel jose a Address:[address] [place] [id number] * * Date:??
--- OUTSIDE RECORDS SUMMARY | 2024-02-29 11:39 | XMS_ITS ---
Author Organization [facility] Address [address] [place] [address] Care Team Providers Care Breast Puller Name Role Phone VijayMorena urbina Unavailable [phone] Encounters Encounter Location Date Provider Diagnosis [facility] [address] [place] [address] 02/15/2024 Morena Jarvis Annual physical exam Z00.00 ; Vitamin D deficiency E55.9 ; Screening for lipid disorders Z13.220 ; Screening for diabetes mellitus Z13.1 and Screening for thyroid disorder Z13.29 ASSESSMENTS Encounter Date Diagnosis Assessment Notes Treatment Notes Treatment Clinical Notes Section Notes 02/15/2024 Annual physical exam (ICD-10 - Z00.00) 02/15/2024 Vitamin D deficiency (ICD-10 - E55.9) 02/15/2024 Screening for lipid disorders (ICD-10 - Z13.220) 02/15/2024 Screening for diabetes mellitus (ICD-10 - Z13.1) 02/15/2024 Screening for thyroid disorder (ICD-10 - Z13.29) PLAN OF TREATMENT Pending Test Test Name Order Date 25OH VITAMIN D 02/15/2024 COMPREHENSIVE METABOLIC PANEL 02/15/2024 HEMOGLOBIN A1C 02/15/2024 LIPID PANEL 02/15/2024 TSH 02/15/2024 URINALYSIS W/REFLEX CULTURE 02/15/2024 CBC with Differential 02/15/2024 Next Appt Details Provider Name:Morena Jarvis, 0 05/04/2024 01:00:00 PM, [address] [facility], [facility] [address], [place], [address], Progress Notes * Mack MCKEONOB: 9 (43 yo M)Acc No.[id number]:02/15/2024 Patient:??Michael MCKEON :1980?Age:43 Y?Sex:Ethel naranjo Address:[address] [place] [id number] Subjective: * Chief Complaints: * ? * Medical History:?? * Surgical History:?? * Hospitalization/Major Diagno stic Procedure:?? * Medications:?? Objective: Assessment: * Assessment: 1.??Annual physical exam - Z 00.00??2.??Vitamin D deficiency - E55.9??3.??Screening for lipid disorders - Z13.220??4.??Screening for diabetes mellitus - Z13.1??5.??Screening for thyroid disorder - Z13.29?? Plan: * Treatment: 2.??Vitamin D deficiency?LAB: 25OH VITAMIN D ?LAB: COMPREHENSIVE METABOLIC PANEL ?LAB: HEMOGLOBIN A1C ?LAB: LIPID PANEL ?LAB: TSH ?LAB: URINALYSIS W/REFLEX CULTURE ?LAB: CBC with Differential 3.??Screening for lipid diso rders?LAB: 25OH VITAMIN D ?LAB: COMPREHENSIVE METABOLIC PANEL ?LAB: HEMOGLOBIN A1C ?LAB: LIPID PANEL ?LAB: TSH ?LAB: URINALYSIS W/REFLEX CULTURE ?LAB: CBC with Differential 4.??Screening for diabetes m ellitus?LAB: 25OH VITAMIN D ?LAB: COMPREHENSIVE METABOLIC PANEL ?LAB: HEMOGLOBIN A1C ?LAB: LIPID PANEL ?LAB: TSH ?LAB: URINALYSIS W/REFLEX CULTURE ?LAB: CBC with Differential 5.??Screening for thyroid di sorder?LAB: 25OH VITAMIN D ?LAB: COMPREHENSIVE METABOLIC PANEL ?LAB: HEMOGLOBIN A1C ?LAB: LIPID PANEL ?LAB: TSH ?LAB: URINALYSIS W/REFLEX CULTURE ?LAB: CBC with Differential * Procedure Codes:?? * true * Date:??
--- OUTSIDE RECORDS SUMMARY | 2024-02-29 11:39 | XMS_ITS ---
Author Organization [facility] Address [address] [place] [address] Care Team Providers Care Manager Ob Name Role Phone Simona Morena Unavailable [phone] REASON FOR VISIT Patient is here for follow up. Patient shared no complaints MEDICATIONS Medication SIG (Take, Route, Frequency, Duration) Notes Start Date End Date Status Vitamin D3 125 MCG (5000 UT) 1 tablet Orally Once a day for 30 days 02/17/2024 Active SOCIAL HISTORY Tobacco Use: Social History Observation Description Date Details (start date - stop date) Never Smoker NA - NA Sex Assigned At : Social History Observation Description Sex Assigned At Unknown Tobacco Use/Smoking Question Answer Notes Are you a nonsmoker Section Notes: rare cigar use alcohol rarely marijuana occ PROBLEMS Problem Type ICD Code Onset Dates Problem Status W/U Status Risk SNOMED Code Notes Problem Family history of heart disease (Z82.49) Active confirmed 974521766 Problem Other obesity due to excess calories (E66.09) Active confirmed 414895017 Problem Body mass index [BMI] 33.0-33.9, adult (Z68.33) Active confirmed 641196739 VITAL SIGNS Heart Rate 63 /min 02/17/2024 Blood pressure systolic 132 mm Hg 02/17/20 24 Blood pressure diastolic 78 mm Hg 024 Weight 230 lbs 02/17/2024 BMI 33 kg/m2 02/17/2024 Height 70 in 02/17/2024 Oximetry 99 % 02/17/2024 Encounters Encounter Location Date Provider Diagnosis [id number] [id number] 02/17/2024 Morena Jarvis Vitamin D deficiency E55.9 ; Left inguinal pain R10.32 ; Elevated lipids E78.5 ; Screening for heart disease Z13.6 ; Family history of heart disease Z82.49 ; Other obesity due to excess calories E66.09 ; Body mass index [BMI] 33.0-33.9, adult Z68.33 ; Obesity, class 1 E66.811 ; Elevated blood pressure reading R03.0 and Weight loss counseling, encounter for Z71.3 ASSESSMENTS Encounter Date Diagnosis Assessment Notes Treatment Notes Treatment Clinical Notes Section Notes 02/17/2024 Vitamin D deficiency (ICD-10 - E55.9) #Left inguinal pain. Persistent left inguinal pain status post hernia repair with mesh 4 months ago. Still has significant pain with coughing and sneezing in the area. He has remained out of work. Will get ultrasound to evaluate. Discussed potential causes including scar tissue, nerve damage from procedure versus other. He has seen the surgeon multiple times. Follow-up pending results. #Vitamin D deficiency. Reviewed updated labs advised to start vitamin D supplement 5000 IUs daily. #Hyperlipidemia. Updated labs reviewed with patient cholesterol is elevated. Discussed lifestyle modifications to improve cholesterol. Discussed strong family history of heart disease and importance of blood pressure and cholesterol control. He would like to work on dietary modifications and exercise. Discussed fish oil co-Q10 and curcumin also his options. Will plan to recheck again in 3 months. If not improved would consider statin. #Screening for heart disease. Given strong family history of heart disease and cardiovascular risk calculation of 7 and half percent. He would like to proceed with coronary calcium scan. Will follow-up pending results. #Obesity. Discussed healthy diet and regular exercise working towards weight reduction. Exercise has been limited due to recent hernia repair. #Elevated blood pressure. Blood pressure quite high initially much improved on repeat at end of visit. Will continue to monitor closely. Discussed importance of blood pressure and lipid control with strong family history of heart disease. Case discussed with collaborating physician Izzy Monteiro who reviewed the assessment and plan. Chart, medications, labs, vital signs reviewed. Dictation was accomplished with the use of [employer] voice recognition software, prone to medical misidentifications and grammatical errors. This is unintentional and the practitioner does try to identify and correct these, but some could still be present. Please do not hesitate to contact practitioner for clarification. All questions answered to patients satisfaction. Patient verbalized understanding of diagnosis and treatments explained. To call sooner prior to next visit it any questions/concerns arise. 02/17/2024 Left inguinal pain (ICD-10 - R10.32) #Left inguinal pain. Persistent left inguinal pain status post hernia repair with mesh 4 months ago. Still has significant pain with coughing and sneezing in the area. He has remained out of work. Will get ultrasound to evaluate. Discussed potential causes including scar tissue, nerve damage from procedure versus other. He has seen the surgeon multiple times. Follow-up pending results. #Vitamin D deficiency. Reviewed updated labs advised to start vitamin D supplement 5000 IUs daily. #Hyperlipidemia. Updated labs reviewed with patient cholesterol is elevated. Discussed lifestyle modifications to improve cholesterol. Discussed strong family history of heart disease and importance of blood pressure and cholesterol control. He would like to work on dietary modifications and exercise. Discussed fish oil co-Q10 and curcumin also his options. Will plan to recheck again in 3 months. If not improved would consider statin. #Screening for heart disease. Given strong family history of heart disease and cardiovascular risk calculation of 7 and half percent. He would like to proceed with coronary calcium scan. Will follow-up pending results. #Obesity. Discussed healthy diet and regular exercise working towards weight reduction. Exercise has been limited due to recent hernia repair. #Elevated blood pressure. Blood pressure quite high initially much improved on repeat at end of visit. Will continue to monitor closely. Discussed importance of blood pressure and lipid control with strong family history of heart disease. Case discussed with collaborating physician Izzy Monteiro who reviewed the assessment and plan. Chart, medications, labs, vital signs reviewed. Dictation was accomplished with the use of [employer] voice recognition software, prone to medical misidentifications and grammatical errors. This is unintentional and the practitioner does try to identify and correct these, but some could still be present. Please do not hesitate to contact practitioner for clarification. All questions answered to patients satisfaction. Patient verbalized understanding of diagnosis and treatments explained. To call sooner prior to next visit it any questions/concerns arise. 02/17/2024 Elevated lipids (ICD-10 - E78.5) #Left inguinal pain. Persistent left inguinal pain status post hernia repair with mesh 4 months ago. Still has significant pain with coughing and sneezing in the area. He has remained out of work. Will get ultrasound to evaluate. Discussed potential causes including scar tissue, nerve damage from procedure versus other. He has seen the surgeon multiple times. Follow-up pending results. #Vitamin D deficiency. Reviewed updated labs advised to start vitamin D supplement 5000 IUs daily. #Hyperlipidemia. Updated labs reviewed with patient cholesterol is elevated. Discussed lifestyle modifications to improve cholesterol. Discussed strong family history of heart disease and importance of blood pressure and cholesterol control. He would like to work on dietary modifications and exercise. Discussed fish oil co-Q10 and curcumin also his options. Will plan to recheck again in 3 months. If not improved would consider statin. #Screening for heart disease. Given strong family history of heart disease and cardiovascular risk calculation of 7 and half percent. He would like to proceed with coronary calcium scan. Will follow-up pending results. #Obesity. Discussed healthy diet and regular exercise working towards weight reduction. Exercise has been limited due to recent hernia repair. #Elevated blood pressure. Blood pressure quite high initially much improved on repeat at end of visit. Will continue to monitor closely. Discussed importance of blood pressure and lipid control with strong family history of heart disease. Case discussed with collaborating physician Izzy Monteiro who reviewed the assessment and plan. Chart, medications, labs, vital signs reviewed. Dictation was accomplished with the use of [employer] voice recognition software, prone to medical misidentifications and grammatical errors. This is unintentional and the practitioner does try to identify and correct these, but some could still be present. Please do not hesitate to contact practitioner for clarification. All questions answered to patients satisfaction. Patient verbalized understanding of diagnosis and treatments explained. To call sooner prior to next visit it any questions/concerns arise. 02/17/2024 Screening for heart disease (ICD-10 - Z13.6) #Left inguinal pain. Persistent left inguinal pain status post hernia repair with mesh 4 months ago. Still has significant pain with coughing and sneezing in the area. He has remained out of work. Will get ultrasound to evaluate. Discussed potential causes including scar tissue, nerve damage from procedure versus other. He has seen the surgeon multiple times. Follow-up pending results. #Vitamin D deficiency. Reviewed updated labs advised to start vitamin D supplement 5000 IUs daily. #Hyperlipidemia. Updated labs reviewed with patient cholesterol is elevated. Discussed lifestyle modifications to improve cholesterol. Discussed strong family history of heart disease and importance of blood pressure and cholesterol control. He would like to work on dietary modifications and exercise. Discussed fish oil co-Q10 and curcumin also his options. Will plan to recheck again in 3 months. If not improved would consider statin. #Screening for heart disease. Given strong family history of heart disease and cardiovascular risk calculation of 7 and half percent. He would like to proceed with coronary calcium scan. Will follow-up pending results. #Obesity. Discussed healthy diet and regular exercise working towards weight reduction. Exercise has been limited due to recent hernia repair. #Elevated blood pressure. Blood pressure quite high initially much improved on repeat at end of visit. Will continue to monitor closely. Discussed importance of blood pressure and lipid control with strong family history of heart disease. Case discussed with collaborating physician Izzy Monteiro who reviewed the assessment and plan. Chart, medications, labs, vital signs reviewed. Dictation was accomplished with the use of [employer] voice recognition software, prone to medical misidentifications and grammatical errors. This is unintentional and the practitioner does try to identify and correct these, but some could still be present. Please do not hesitate to contact practitioner for clarification. All questions answered to patients satisfaction. Patient verbalized understanding of diagnosis and treatments explained. To call sooner prior to next visit it any questions/concerns arise. 02/17/2024 Family history of heart disease (ICD-10 - Z82.49) #Left inguinal pain. Persistent left inguinal pain status post hernia repair with mesh 4 months ago. Still has significant pain with coughing and sneezing in the area. He has remained out of work. Will get ultrasound to evaluate. Discussed potential causes including scar tissue, nerve damage from procedure versus other. He has seen the surgeon multiple times. Follow-up pending results. #Vitamin D deficiency. Reviewed updated labs advised to start vitamin D supplement 5000 IUs daily. #Hyperlipidemia. Updated labs reviewed with patient cholesterol is elevated. Discussed lifestyle modifications to improve cholesterol. Discussed strong family history of heart disease and importance of blood pressure and cholesterol control. He would like to work on dietary modifications and exercise. Discussed fish oil co-Q10 and curcumin also his options. Will plan to recheck again in 3 months. If not improved would consider statin. #Screening for heart disease. Given strong family history of heart disease and cardiovascular risk calculation of 7 and half percent. He would like to proceed with coronary calcium scan. Will follow-up pending results. #Obesity. Discussed healthy diet and regular exercise working towards weight reduction. Exercise has been limited due to recent hernia repair. #Elevated blood pressure. Blood pressure quite high initially much improved on repeat at end of visit. Will continue to monitor closely. Discussed importance of blood pressure and lipid control with strong family history of heart disease. Case discussed with collaborating physician Izzy Monteiro who reviewed the assessment and plan. Chart, medications, labs, vital signs reviewed. Dictation was accomplished with the use of [employer] voice recognition software, prone to medical misidentifications and grammatical errors. This is unintentional and the practitioner does try to identify and correct these, but some could still be present. Please do not hesitate to contact practitioner for clarification. All questions answered to patients satisfaction. Patient verbalized understanding of diagnosis and treatments explained. To call sooner prior to next visit it any questions/concerns arise. 02/17/2024 Other obesity due to excess calories (ICD-10 - E66.09) #Left inguinal pain. Persistent left inguinal pain status post hernia repair with mesh 4 months ago. Still has significant pain with coughing and sneezing in the area. He has remained out of work. Will get ultrasound to evaluate. Discussed potential causes including scar tissue, nerve damage from procedure versus other. He has seen the surgeon multiple times. Follow-up pending results. #Vitamin D deficiency. Reviewed updated labs advised to start vitamin D supplement 5000 IUs daily. #Hyperlipidemia. Updated labs reviewed with patient cholesterol is elevated. Discussed lifestyle modifications to improve cholesterol. Discussed strong family history of heart disease and importance of blood pressure and cholesterol control. He would like to work on dietary modifications and exercise. Discussed fish oil co-Q10 and curcumin also his options. Will plan to recheck again in 3 months. If not improved would consider statin. #Screening for heart disease. Given strong family history of heart disease and cardiovascular risk calculation of 7 and half percent. He would like to proceed with coronary calcium scan. Will follow-up pending results. #Obesity. Discussed healthy diet and regular exercise working towards weight reduction. Exercise has been limited due to recent hernia repair. #Elevated blood pressure. Blood pressure quite high initially much improved on repeat at end of visit. Will continue to monitor closely. Discussed importance of blood pressure and lipid control with strong family history of heart disease. Case discussed with collaborating physician Izzy Monteiro who reviewed the assessment and plan. Chart, medications, labs, vital signs reviewed. Dictation was accomplished with the use of [employer] voice recognition software, prone to medical misidentifications and grammatical errors. This is unintentional and the practitioner does try to identify and correct these, but some could still be present. Please do not hesitate to contact practitioner for clarification. All questions answered to patients satisfaction. Patient verbalized understanding of diagnosis and treatments explained. To call sooner prior to next visit it any questions/concerns arise. 02/17/2024 Body mass index [BMI] 33.0-33.9, adult (ICD-10 - Z68.33) #Left inguinal pain. Persistent left inguinal pain status post hernia repair with mesh 4 months ago. Still has significant pain with coughing and sneezing in the area. He has remained out of work. Will get ultrasound to evaluate. Discussed potential causes including scar tissue, nerve damage from procedure versus other. He has seen the surgeon multiple times. Follow-up pending results. #Vitamin D deficiency. Reviewed updated labs advised to start vitamin D supplement 5000 IUs daily. #Hyperlipidemia. Updated labs reviewed with patient cholesterol is elevated. Discussed lifestyle modifications to improve cholesterol. Discussed strong family history of heart disease and importance of blood pressure and cholesterol control. He would like to work on dietary modifications and exercise. Discussed fish oil co-Q10 and curcumin also his options. Will plan to recheck again in 3 months. If not improved would consider statin. #Screening for heart disease. Given strong family history of heart disease and cardiovascular risk calculation of 7 and half percent. He would like to proceed with coronary calcium scan. Will follow-up pending results. #Obesity. Discussed healthy diet and regular exercise working towards weight reduction. Exercise has been limited due to recent hernia repair. #Elevated blood pressure. Blood pressure quite high initially much improved on repeat at end of visit. Will continue to monitor closely. Discussed importance of blood pressure and lipid control with strong family history of heart disease. Case discussed with collaborating physician Izzy Monteiro who reviewed the assessment and plan. Chart, medications, labs, vital signs reviewed. Dictation was accomplished with the use of [employer] voice recognition software, prone to medical misidentifications and grammatical errors. This is unintentional and the practitioner does try to identify and correct these, but some could still be present. Please do not hesitate to contact practitioner for clarification. All questions answered to patients satisfaction. Patient verbalized understanding of diagnosis and treatments explained. To call sooner prior to next visit it any questions/concerns arise. 02/17/2024 Obesity, class 1 (ICD-10 - E66.811) #Left inguinal pain. Persistent left inguinal pain status post hernia repair with mesh 4 months ago. Still has significant pain with coughing and sneezing in the area. He has remained out of work. Will get ultrasound to evaluate. Discussed potential causes including scar tissue, nerve damage from procedure versus other. He has seen the surgeon multiple times. Follow-up pending results. #Vitamin D deficiency. Reviewed updated labs advised to start vitamin D supplement 5000 IUs daily. #Hyperlipidemia. Updated labs reviewed with patient cholesterol is elevated. Discussed lifestyle modifications to improve cholesterol. Discussed strong family history of heart disease and importance of blood pressure and cholesterol control. He would like to work on dietary modifications and exercise. Discussed fish oil co-Q10 and curcumin also his options. Will plan to recheck again in 3 months. If not improved would consider statin. #Screening for heart disease. Given strong family history of heart disease and cardiovascular risk calculation of 7 and half percent. He would like to proceed with coronary calcium scan. Will follow-up pending results. #Obesity. Discussed healthy diet and regular exercise working towards weight reduction. Exercise has been limited due to recent hernia repair. #Elevated blood pressure. Blood pressure quite high initially much improved on repeat at end of visit. Will continue to monitor closely. Discussed importance of blood pressure and lipid control with strong family history of heart disease. Case discussed with collaborating physician Izzy Monteiro who reviewed the assessment and plan. Chart, medications, labs, vital signs reviewed. Dictation was accomplished with the use of [employer] voice recognition software, prone to medical misidentifications and grammatical errors. This is unintentional and the practitioner does try to identify and correct these, but some could still be present. Please do not hesitate to contact practitioner for clarification. All questions answered to patients satisfaction. Patient verbalized understanding of diagnosis and treatments explained. To call sooner prior to next visit it any questions/concerns arise. 02/17/2024 Elevated blood pressure reading (ICD-10 - R03.0) #Left inguinal pain. Persistent left inguinal pain status post hernia repair with mesh 4 months ago. Still has significant pain with coughing and sneezing in the area. He has remained out of work. Will get ultrasound to evaluate. Discussed potential causes including scar tissue, nerve damage from procedure versus other. He has seen the surgeon multiple times. Follow-up pending results. #Vitamin D deficiency. Reviewed updated labs advised to start vitamin D supplement 5000 IUs daily. #Hyperlipidemia. Updated labs reviewed with patient cholesterol is elevated. Discussed lifestyle modifications to improve cholesterol. Discussed strong family history of heart disease and importance of blood pressure and cholesterol control. He would like to work on dietary modifications and exercise. Discussed fish oil co-Q10 and curcumin also his options. Will plan to recheck again in 3 months. If not improved would consider statin. #Screening for heart disease. Given strong family history of heart disease and cardiovascular risk calculation of 7 and half percent. He would like to proceed with coronary calcium scan. Will follow-up pending results. #Obesity. Discussed healthy diet and regular exercise working towards weight reduction. Exercise has been limited due to recent hernia repair. #Elevated blood pressure. Blood pressure quite high initially much improved on repeat at end of visit. Will continue to monitor closely. Discussed importance of blood pressure and lipid control with strong family history of heart disease. Case discussed with collaborating physician Izzy Monteiro who reviewed the assessment and plan. Chart, medications, labs, vital signs reviewed. Dictation was accomplished with the use of [employer] voice recognition software, prone to medical misidentifications and grammatical errors. This is unintentional and the practitioner does try to identify and correct these, but some could still be present. Please do not hesitate to contact practitioner for clarification. All questions answered to patients satisfaction. Patient verbalized understanding of diagnosis and treatments explained. To call sooner prior to next visit it any questions/concerns arise. 02/17/2024 Weight loss counseling, encounter for (ICD-10 - Z71.3) #Left inguinal pain. Persistent left inguinal pain status post hernia repair with mesh 4 months ago. Still has significant pain with coughing and sneezing in the area. He has remained out of work. Will get ultrasound to evaluate. Discussed potential causes including scar tissue, nerve damage from procedure versus other. He has seen the surgeon multiple times. Follow-up pending results. #Vitamin D deficiency. Reviewed updated labs advised to start vitamin D supplement 5000 IUs daily. #Hyperlipidemia. Updated labs reviewed with patient cholesterol is elevated. Discussed lifestyle modifications to improve cholesterol. Discussed strong family history of heart disease and importance of blood pressure and cholesterol control. He would like to work on dietary modifications and exercise. Discussed fish oil co-Q10 and curcumin also his options. Will plan to recheck again in 3 months. If not improved would consider statin. #Screening for heart disease. Given strong family history of heart disease and cardiovascular risk calculation of 7 and half percent. He would like to proceed with coronary calcium scan. Will follow-up pending results. #Obesity. Discussed healthy diet and regular exercise working towards weight reduction. Exercise has been limited due to recent hernia repair. #Elevated blood pressure. Blood pressure quite high initially much improved on repeat at end of visit. Will continue to monitor closely. Discussed importance of blood pressure and lipid control with strong family history of heart disease. Case discussed with collaborating physician Izzy Monteiro who reviewed the assessment and plan. Chart, medications, labs, vital signs reviewed. Dictation was accomplished with the use of [employer] voice recognition software, prone to medical misidentifications and grammatical errors. This is unintentional and the practitioner does try to identify and correct these, but some could still be present. Please do not hesitate to contact practitioner for clarification. All questions answered to patients satisfaction. Patient verbalized understanding of diagnosis and treatments explained. To call sooner prior to next visit it any questions/concerns arise. PLAN OF TREATMENT Medication Medication Name Sig Start Date Stop Date Notes Vitamin D3 125 MCG (5000 UT) 1 tablet Or ally Once a day for 30 days 02/17/2024 Pending Test Test Name Order Date LIPID PANEL, STANDARD 02/17/2024 VITAMIN D,25-OH,TOTAL,IA 02/17/2024 Next Appt Details Follow Up: 4 Weeks, Reason: Provider Name:Leon Araujo 05/04/2024 01:00:00 PM, [address] [place] [address], [facility] [address], [place], [id number], Progress Notes * Mack MCKEONOB: 9 (43 yo M)Acc No.[id number]:02/17/2024 Progress Notes Patient:??Michael MCKEON Provider:??Morena Jarvis PA-C :1980?Age:43 Y?Sex:Ethel naranjo Date:02/17/2024 Address:[address] [place] [address] [facility] Subjective: * Chief Complaints: * ?1. Patient is here for follow up. Patient shared no complaints. * HPI: ?Constitutional:? Here today for lab review and blood pressure check. Comprehensive labs done and reviewed in detail with patient. Vitamin D is low. Discussed supplementation. Cholesterol is high. There is a strong family history of heart attacks. His brother just had a heart attack 2 weeks ago and has family history of heart attacks on both maternal and paternal grandfathers and uncles. He has started exercising denies any chest pain. He would like to consider further workup in regards to risk for cardiovascular disease. ?Discussed cardiovascular risk calculation at 7 and half percent. Discussed option of coronary calcium scan which she is very interested in. ?He also had a hernia repair left inguinal about 4 months ago. He is still not back to work. He has significant pain when coughing and sneezing. Does not hurt at the incision site but much lower in his inguinal area. He has to crouch down into a squatting position when coughing or sneezing to decrease the discomfort. His surgeon has been extending his time off. He is worried about the persistence of discomfort. He is scheduled to go back to work in a couple of weeks. Does not have any planned follow-up with surgeon at this time. Bowels are moving normally. * ROS:?All Other Systems:?Review of Systems (ROS)??All others negative except those mentioned in HPI.? * Medical History:??Medical Hi story Verified. * Surgical History:??splenecto my , hernia repair left inguinal with mesh 11/20/2023. * Family History:??Father: ali ve.??Mother: alive.??2 brother(s) , 1 sister(s) - healthy. 2 son(s) , 1 daughter(s) - healthy. .?? mother-diabetes, HTN, high cholesterol. * Social History:?Tobacco Use:??Tobacco Use/Smoking??Are you a??nonsmoker.?rare cigar use ???alcohol rarely ???marijuana occ. * Medications:??None Objective: * Vitals:??HR:63/min, BP:132/7 8mm Hg, Wt:230lbs, BMI:33Index, Ht: 70 in, Oxygen sat %:99%. * Physical Examination:?General: Well appearing, well nourished, age appropriate in no acute distress. Speaking in full, clear sentences. ?SKIN: Warm, dry intact. No rashes/lesions. ?HEENT: Normocephalic atraumatic. EOM intact. No nystagmus noted. PERRLA. ?LUNGS: Clear to auscultation bilaterally, no wheezes, rales or rhonchi ?CARDIAC: Regular rate and rhythm, no murmurs, rubs or gallops. ?ABD: No tenderness. Well healed incision left lower abdomen ?Extremities: Warm and well perfused. No edema noted. ?Neuro: CN II-XI grossly intact. Speaking in full sentences. Hearing intact. Assessment: * Assessment: 1.??Left inguinal pain - R10 .32 (Primary)??2.??Vitamin D deficiency - E55.9??3.??Elevated lipids - E78.5??4.??Screening for heart disease - Z13.6??5.??Family history of heart disease - Z82.49??6.??Other obesity due to excess calories - E66.09??7.??Body mass index [BMI] 33.0-33.9, adult - Z68.33??8.??Obesity, class 1 - E66.811??9.??Elevated blood pressure reading - R03.0??10.??Weight loss counseling, encounter for - Z71.3?? #Left inguinal pain. Persist ent left inguinal pain status post hernia repair with mesh 4 months ago. Still has significant pain with coughing and sneezing in the area. He has remained out of work. Will get ultrasound to evaluate. Discussed potential causes including scar tissue, nerve damage from procedure versus other. He has seen the surgeon multiple times. Follow-up pending results. #Vitamin D deficiency. Reviewed updated labs advised to start vitamin D supplement 5000 IUs daily. #Hyperlipidemia. Updated labs reviewed with patient cholesterol is elevated. Discussed lifestyle modifications to improve cholesterol. Discussed strong family history of heart disease and importance of blood pressure and cholesterol control. He would like to work on dietary modifications and exercise. Discussed fish oil co- Q10 and curcumin also his options. Will plan to recheck again in 3 months. If not improved would consider statin. #Screening for heart disease. Given strong family history of heart disease and cardiovascular risk calculation of 7 and half percent. He would like to proceed with coronary calcium scan. Will follow-up pending results. #Obesity. Discussed healthy diet and regular exercise working towards weight reduction. Exercise has been limited due to recent hernia repair. #Elevated blood pressure. Blood pressure quite high initially much improved on repeat at end of visit. Will continue to monitor closely. Discussed importance of blood pressure and lipid control with strong family history of heart disease. Case discussed with collaborating physician Izzy Monteiro who reviewed the assessment and plan. Chart, medications, labs, vital signs reviewed. Dictation was accomplished with the use of [employer] voice recognition software, prone to medical misidentifications and grammatical errors. This is unintentional and the practitioner does try to identify and correct these, but some could still be present. Please do not hesitate to contact practitioner for clarification. All questions answered to patients satisfaction. Patient verbalized understanding of diagnosis and treatments explained. To call sooner prior to next visit it any questions/concerns arise. Plan: * Treatment: 2.??Elevated lipids?LAB: LIPID PANEL, STANDARD ?LAB: VITAMIN D,25-OH,TOTAL,IA * Procedure Codes:??G0446 KIMBERLY F2F INT BEHV TX CV DZ IND 15 MN, G0447 FCE-FCE BEHAVRL CNSL OBESITY 15 MIN, Modifiers: 59 * Follow Up:??4 Weeks * Images: Billing Information: * Visit Code:?? 69345 Office Visit, Est Pt., Level 4. * Procedure Codes:?? G0446 KIMBERLY F2F INT BEHV TX CV DZ IND 15 MN. G0447 FCE-FCE BEHAVRL CNSL OBESITY 15 MIN. Modifiers: 59 Care Plan Details* * Sign off status: Completed true * Provider:??Morena Jarvis PA-C Date:??06/2023 History and Physical Notes * HPI (History of Present Illness) Category Sub-Category Detail Notes Category Not es Constitutional Here today for lab review and blood pressure check. Comprehensive labs done and reviewed in detail with patient. Vitamin D is low. Discussed supplementation. Cholesterol is high. There is a strong family history of heart attacks. His brother just had a heart attack 2 weeks ago and has family history of heart attacks on both maternal and paternal grandfathers and uncles. He has started exercising denies any chest pain. He would like to consider further workup in regards to risk for cardiovascular disease. Discussed cardiovascular risk calculation at 7 and half percent. Discussed option of coronary calcium scan which she is very interested in. He also had a hernia repair left inguinal about 4 months ago. He is still not back to work. He has significant pain when coughing and sneezing. Does not hurt at the incision site but much lower in his inguinal area. He has to crouch down into a squatting position when coughing or sneezing to decrease the discomfort. His surgeon has been extending his time off. He is worried about the persistence of discomfort. He is scheduled to go back to work in a couple of weeks. Does not have any planned follow-up with surgeon at this time. Bowels are moving normally. Physical Examination Category Sub-Category Detail Notes Section Note s General: Well appearing, well nourished, age appropriate in no acute distress. Speaking in full, clear sentences. SKIN: Warm, dry intact. No rashes/lesions. HEENT: Normocephalic atraumatic. EOM intact. No nystagmus noted. PERRLA. LUNGS: Clear to auscultation bilaterally, no wheezes, rales or rhonchi CARDIAC: Regular rate and rhythm, no murmurs, rubs or gallops. ABD: No tenderness. Well healed incision left lower abdomen Extremities: Warm and well perfused. No edema noted. Neuro: CN II-XI grossly intact. Speaking in full sentences. Hearing intact.
--- OUTSIDE RECORDS SUMMARY | 2024-02-29 11:40 | XMS_ITS | Patient Health Record ---
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 Prediabetes: 5.7 - 6.4 Diabetes: >6.4 Glycemic control for adults with diabetes: <7.0 [id number] Reviewed date:02/17/2024 10:02:10 AM Interpretation: Performing Lab:[facility] [place], [address] [place] [address], [place], Phone - [phone], Director Yovany Quiñones Notes/Report: Clinical Information:SRC: TSH 0.737 0.450-4.500 uIU/mL CBC With Differential/Platel et-[id number] Reviewed date:02/17/2024 10:03:16 AM Interpretation: Performing Lab:[facility] [place], [address] [facility] [place], [place], Phone - [phone], Director Yovany Quiñones Notes/Report: Clinical Information:SRC: WBC 8.6 3.4-10.8 x10E3/uL RBC 4.99 4.14-5.80 x10E6/uL Hemoglobin 14.8 13.0-17.7 g/dL Hematocrit 44.2 37.5-51.0 % MCV 89 79-97 fL MCH 29.7 26.6-33.0 pg MCHC 33.5 31.5-35.7 g/dL RDW 13.0 11.6-15.4 % Platelets 352 150-450 x10E3/uL Neutrophils 55 Not Estab. % Lymphs 36 Not Estab. % Monocytes 7 Not Estab. % Eos 1 Not Estab. % Basos 1 Not Estab. % Immature Cells Neutrophils (Absolute) 4.8 1.4-7.0 x10E3/uL Lymphs (Absolute) 3.1 0.7-3.1 x10E3/uL Monocytes(Absolute) 0.6 0.1-0.9 x10E3/uL Eos (Absolute) 0.1 0.0-0.4 x10E3/uL Baso (Absolute) 0.1 0.0-0.2 x10E3/uL Immature Granulocytes 0 Not Estab. % Immature Grans (Abs) 0.0 0.0-0.1 x10E3/uL NRBC Hematology Comments: Urine Culture, Routine-[id number] Reviewed date:02/17/2024 08:52:43 AM Interpretation: Performing Lab:[facility], [address] [place] [address], Phone - [phone], Director - Nuria Notes/Report: Clinical Information:SRC: Clinical Information:SRC:UC Urine Culture, Routine Final report Result 1 No growth Vitamin D, 57-[id number] Reviewed date:02/17/2024 10:01:51 AM Interpretation: Performing Lab:[facility], [address] [place] [address], Phone - [phone], Director - Nuria Notes/Report: Clinical Information:SRC: Vitamin D, 25-Hydroxy 23.3 30.0-100.0 ng/mL Vitamin D deficiency has been defined by the [place] of [employer] and an Endocrine Society practice guideline as a level of serum 25-OH vitamin D less than 20 ng/mL (1,2). The Endocrine Society went on to further define vitamin D insufficiency as a level between 21 and 29 ng/mL (2). 1. IOM ([place] of [employer]). 2010. Dietary reference intakes for calcium and D. [place]: The National Academies Press. 2. Armani MF, Malini NC, Garcia ISRAEL, et al. Evaluation, treatment, and prevention of vitamin D deficiency: an Endocrine Society clinical practice guideline. JCEM. 2010; 96(7):1911-30. Lipid Panel-[id number] Reviewed date:02/17/2024 10:02:49 AM Interpretation: Performing Lab:[facility], [address], [place], Phone - [phone], Director - Nuria Notes/Report: Clinical Information:SRC:UC Cholesterol, Total 236 100-199 mg/dL Triglycerides 227 0-149 mg/dL HDL Cholesterol 36 >39 mg/dL VLDL Cholesterol Jonathan 42 5-40 mg/dL LDL Chol Calc ([facility]) 158 0-99 mg/dL LDL Calc Comment: REASON FOR REFERRAL Diagnosis 1 Hernia (K46.9) Referral Organization [facility] 119 Referring Provider First Name Morena Ref[facility] Referring Provider Speciality Internal edicine Referred Provider Specialty General Surg khadar General Notes MAGNOLIA YADAV MD, [address] [place] [address], [address], [place] [address], , Clinical Notes Gurwinder Slaughter 02:10:17 PM > I called the phone number above and they said they're not the general surgery department. I refaxed the referral to general surgery [phone]. Their phone number is [phone], Gurwinder Slaughter 11/17/2023 03:55:25 PM > The patient is scheduled for surgery on 11/20/2023 at 8:50 am. Pt is aware Referral Priority Routine Diagnosis 1 Encounter for screen ing for malignant neoplasm of colon (Z12.11) Referral Organization [place] [address] Referring Provider First Name Morena Referring Provider Last Name [facility] Referring Provider Speciality Internal edicine Referred Provider Lino Braxton Referred Provider Specialty Gastroentero logy General Notes [address] [place] [address], [address] [place] [id number], [phone], [phone] Clinical Notes Leslee Betancur 024 11:50:15 AM >pt cannot book with marina Referral Priority Routine MEDICATIONS Medication SIG (Take, Route, Frequency, Duration) [...] Question Answer Notes Are you a nonsmoker Alcohol Screen (Audit-C) Question Answer Notes Did you have a drink containing alcohol in the p ast year? No Points 0 Interpretation Negative Section Notes: rare cigar use alcohol rarely marijuana occ rare cigar use alcohol rarely marijuana occ PROBLEMS Problem Type ICD Code Onset Dates Problem Status W/U Status Risk SNOMED Code Notes Problem Other obesity due to excess calories (E66.09) Active confirmed 391417074 Problem Vitamin D deficiency (E55.9) Active confirmed 95494279 Problem Body mass index [BMI] 33.0-33.9, adult (Z68.33) Active confirmed 069064522 Problem Family history of heart disease (Z82.49) Active confirmed 792755936 Problem Screening for heart disease (Z13.6) Active confirmed Heart disease screening (674321923) Problem Elevated lipids (E78.5) Active confirmed Elevated fast ing lipid profile (134614656674) Problem Stricture of male urethra, unspecified 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) Active confirmed [id number] VITAL SIGNS Heart Rate 63 /min 02/17/2024 Oximetry 99 % 02/17/2024 Blood pressure diastolic 78 mm Hg 02/17/2024 Height 70 in 02/17/2024 Blood pressure systolic 132 mm Hg 02/17/2024 Weight 230 lbs 02/17/2024 BMI 33 kg/m2 02/17/2024 Encounters Encounter Location Date Provider Diagnosis [address] [address] 10/22/2023 Morena Svrcek Vitamin D deficiency E55.9 ; Hernia K46.9 ; Elevated blood pressure reading R03.0 and Stricture of male urethra, unspecified stricture type N35.919 [address] [address] 12/23/2023 Morena Svrcek Encounter for screening for malignant neoplasm of colon Z12.11 ; Annual physical exam Z00.00 and Elevated blood pressure reading R03.[address] [address] 02/17/2024 Morena Svrcek Vitamin D deficiency E55.9 ; Left inguinal pain R10.32 ; Elevated lipids E78.5 ; Screening for heart disease Z13.6 ; Family history of heart disease Z82.49 ; Other obesity due to excess calories E66.09 ; Body mass index [BMI] 33.0-33.9, adult Z68.33 ; Obesity, class 1 E66.811 ; Elevated blood pressure reading R03.0 and Weight loss counseling, encounter for Z71.3 [address] [address] 02/24/2024 Morena Svrk [facility] [address] [place] [address] [facility] [address] [facility] [address] [place] [address] 11/20/2023 Morena [facility] [address] [place] [address] 02/15/2024 Morena [facility] [place] exam Z00.00 ; Vitamin D deficiency E55.9 ; Screening for lipid disorders Z13.220 ; Screening for diabetes mellitus Z13.1 and Screening for thyroid disorder Z13.29 [address] [address] 12/23/2023 Morena Svrcek [address] [address] 02/15/2024 Morena [facility] Encounter Date Diagnosis Assessment Notes Treatment Notes Treatment Clinical Notes Section Notes 10/22/2023 Hernia (ICD-10 - K46.9) #Hernia. Left lower abdominal wall. He is already seen general surgery and needs updated referral to proceed with surgery. He will call us with surgeons information to process referral. Denies any bowel symptoms. No increased pain. Of note he did have prior hernia repair in 2011. #Vitamin D deficiency. Low in the past. Currently on supplement. Will get updated comprehensive labs prior to annual physical. #Elevated blood pressure. Minimally elevated in the office today. Discussed goal less than 130/80. He does have a blood pressure cuff at home and will monitor periodically. Discussed healthy diet regular exercise will check at follow-up in 2 months. #Urethral stricture. Reports cystoscopy showing urethral stricture. He is following with Dr. Shola Larson and will need surgery in the future however they would like him to have his hernia repair done and colonoscopy prior to stricture repair. Case discussed with collaborating physician Izzy Monteiro who reviewed the assessment and plan. Chart, medications, labs, vital signs reviewed. Dictation was accomplished with the use of [employer] voice recognition software, prone to medical misidentifications and grammatical errors. This is unintentional and the practitioner does try to identify and correct these, but some could still be present. Please do not hesitate to contact practitioner for clarification. All questions answered to patients satisfaction. Patient verbalized understanding of diagnosis and treatments explained. To call sooner prior to next visit it any questions/concerns arise. 10/22/2023 Vitamin D deficiency (ICD-10 - E55.9) #Hernia. Left lower abdominal wall. He is already seen general surgery and needs updated referral to proceed with surgery. He will call us with surgeons information to process referral. Denies any bowel symptoms. No increased pain. Of note he did have prior hernia repair in 2011. #Vitamin D deficiency. Low in the past. Currently on supplement. Will get updated comprehensive labs prior to annual physical. #Elevated blood pressure. Minimally elevated in the office today. Discussed goal less than 130/80. He does have a blood pressure cuff at home and will monitor periodically. Discussed healthy diet regular exercise will check at follow-up in 2 months. #Urethral stricture. Reports cystoscopy showing urethral stricture. He is following with Dr. Shola Larson and will need surgery in the future however they would like him to have his hernia repair done and colonoscopy prior to stricture repair. Case discussed with collaborating physician Izzy Monteiro who reviewed the assessment and plan. Chart, medications, labs, vital signs reviewed. Dictation was accomplished with the use of [employer] voice recognition software, prone to medical misidentifications and grammatical errors. This is unintentional and the practitioner does try to identify and correct these, but some could still be present. Please do not hesitate to contact practitioner for clarification. All questions answered to patients satisfaction. Patient verbalized understanding of diagnosis and treatments explained. To call sooner prior to next visit it any questions/concerns arise. 02/15/2024 Annual physical exam (ICD-10 - Z00.00) 12/23/2023 Encounter for screening for malignant neoplasm of colon (ICD-10 - Z12.11) #Annual physical. Discussed importance of healthy diet and regular exercise once cleared by surgeon. Declines flu vaccine. Up-to-date on tetanus vaccine. Will refer for screening colonoscopy. Health care proxy form given today. He will complete and bring back to follow-up visit. He has not yet done his labs. Will do in the next few weeks and follow-up in 4 to 6 weeks for repeat blood pressure check. #Elevated blood pressure. Blood pressure mildly elevated in the office today. Advised to monitor at home and bring readings to follow-up in 4 to 6 weeks. Will get labs and follow-up pending results. If blood pressure remains elevated would advise starting low-dose medication. He agrees with plan. Patient seen and examined. Comprehensive discussion was done on the following. 1. Nutrition: It is important to follow a healthy diet based on lots of vegetables and legumes and good fat. Avoid processed food and processed carbohydrates. Learn to prepare your own meals. Learn to read labels and avoid high fructose corn syrup, processed chemicals added to increase shelf life and preprepared meals. Avoid fast foods. Learn to eat slowly and plan meals for a week. Try to count calories and be mindful off daily calorie intake. Get into the habit of keeping an eye on your weight by using an appropriate scale. Learn to log exercise and discussed fitness Apps like [employer] which can help keep log off calories taken versus calories burned. Local food should be preferred. Discussed Dirty Dozen Versus Clean Fifteen. Discussed healthy supplements like fish oil, Tumeric, Curcumin, Melatonin, Resveratrol, Probiotics, Vitamin-D, Alpha-Lipoic acid, Vitamin-D and coconut oil. 2. It is important to exercise regularly. Is a good habit to walk at least 30-45 minutes a day. Gentle weightlifting with standard precautions to protect the back. Finding activity like cycling or hiking and get into the habit of engaging in it. Stretching before and after the exercises important. It is also important to contact me if there are any problems like shortness of breath, chest pain, back pain and joint or muscle pain associated with the exercise. 3. Discussed age appropriate screening guidelines. Colonoscopy needs to start at age 50 with stool for occult blood as appropriate. There is a new test that can test for genetic abnormalities in the stool sample. This would not replace a colonoscopy but could be used as a screening tool for patients who do not want a colonoscopy. We discussed the importance of early detection of colon cancer. 4. Discussed current PSA screening. PSA screening can be done in most patients between age 50 and 65. However early detection of prostate cancer needs to carefully be balanced with complications with treatment. These include incontinence, impotence etc. Each patient should decide if they would like to have this test. 5. Discussed safe driving and no use of smart phone while driving 6. Age-appropriate immunizations were discussed. A tetanus booster is needed every 10 years. Flu vaccine is recommended every year just before the start of the flu season. Shingles vaccine is recommended after age 50 but not all insurances cover it. Pneumonia vaccine is given after age 65 unless there are certain comorbidities for which it is started earlier. 7. Diagnostic labs were discussed. These could include CBC CMP and lipids with fasting blood glucose and insulin levels. Vitamin D and hemoglobin A1c testing might be appropriate. Case discussed with collaborating physician Izzy Monteiro who reviewed the assessment and plan. Chart, medications, labs, vital signs reviewed. Dictation was accomplished with the use of [employer] voice recognition software, prone to medical misidentifications and grammatical errors. This is unintentional and the practitioner does try to identify and correct these, but some could still be present. Please do not hesitate to contact practitioner for clarification. All questions answered to patients satisfaction. Patient verbalized understanding of diagnosis and treatments explained. To call sooner prior to next visit it any questions/concerns arise. 12/23/2023 Annual physical exam (ICD-10 - Z00.00) #Annual physical. Discussed importance of healthy diet and regular exercise once cleared by surgeon. Declines flu vaccine. Up-to-date on tetanus vaccine. Will refer for screening colonoscopy. Health care proxy form given today. He will complete and bring back to follow-up visit. He has not yet done his labs. Will do in the next few weeks and follow-up in 4 to 6 weeks for repeat blood pressure check. #Elevated blood pressure. Blood pressure mildly elevated in the office today. Advised to monitor at home and bring readings to follow-up in 4 to 6 weeks. Will get labs and follow-up pending results. If blood pressure remains elevated would advise starting low-dose medication. He agrees with plan. Patient seen and examined. Comprehensive discussion was done on the following. 1. Nutrition: It is important to follow a healthy diet based on lots of vegetables and legumes and good fat. Avoid processed food and processed carbohydrates. Learn to prepare your own meals. Learn to read labels and avoid high fructose corn syrup, processed chemicals added to increase shelf life and preprepared meals. Avoid fast foods. Learn to eat slowly and plan meals for a week. Try to count calories and be mindful off daily calorie intake. Get into the habit of keeping an eye on your weight by using an appropriate scale. Learn to log exercise and discussed fitness Apps like [employer] which can help keep log off calories taken versus calories burned. Local food should be preferred. Discussed Dirty Dozen Versus Clean Fifteen. Discussed healthy supplements like fish oil, Tumeric, Curcumin, Melatonin, Resveratrol, Probiotics, Vitamin-D, Alpha-Lipoic acid, Vitamin-D and coconut oil. 2. It is important to exercise regularly. Is a good habit to walk at least 30-45 minutes a day. Gentle weightlifting with standard precautions to protect the back. Finding activity like cycling or hiking and get into the habit of engaging in it. Stretching before and after the exercises important. It is also important to contact me if there are any problems like shortness of breath, chest pain, back pain and joint or muscle pain associated with the exercise. 3. Discussed age appropriate screening guidelines. Colonoscopy needs to start at age 50 with stool for occult blood as appropriate. There is a new test that can test for genetic abnormalities in the stool sample. This would not replace a colonoscopy but could be used as a screening tool for patients who do not want a colonoscopy. We discussed the importance of early detection of colon cancer. 4. Discussed current PSA screening. PSA screening can be done in most patients between age 50 and 65. However early detection of prostate cancer needs to carefully be balanced with complications with treatment. These include incontinence, impotence etc. Each patient should decide if they would like to have this test. 5. Discussed safe driving and no use of smart phone while driving 6. Age-appropriate immunizations were discussed. A tetanus booster is needed every 10 years. Flu vaccine is recommended every year just before the start of the flu season. Shingles vaccine is recommended after age 50 but not all insurances cover it. Pneumonia vaccine is given after age 65 unless there are certain comorbidities for which it is started earlier. 7. Diagnostic labs were discussed. These could include CBC CMP and lipids with fasting blood glucose and insulin levels. Vitamin D and hemoglobin A1c testing might be appropriate. Case discussed with collaborating physician Izzy Monteiro who reviewed the assessment and plan. Chart, medications, labs, vital signs reviewed. Dictation was accomplished with the use of [employer] voice recognition software, prone to medical misidentifications [...] next visit it any questions/concerns arise. 02/17/2024 Vitamin D deficiency (ICD-10 - E55.9) [...] Dictation was accomplished with the use of [employer] voice recognition software, prone to medical misidentifications [...] Dictation was accomplished with the use of [employer] voice recognition software, prone to medical misidentifications and grammatical errors. This is unintentional and the practitioner does try to identify and correct these, but some could still be present. Please do not hesitate to contact practitioner for clarification. All questions answered to patients satisfaction. Patient verbalized understanding of diagnosis and treatments explained. To call sooner prior to next visit it any questions/concerns arise. 12/23/2023 Elevated blood pressure reading (ICD-10 - R03.0) #Annual physical. Discussed importance of healthy diet and regular exercise once cleared by surgeon. Declines flu vaccine. Up-to-date on tetanus vaccine. Will refer for screening colonoscopy. Health care proxy form given today. He will complete and bring back to follow-up visit. He has not yet done his labs. Will do in the next few weeks and follow-up in 4 to 6 weeks for repeat blood pressure check. #Elevated blood pressure. Blood pressure mildly elevated in the office today. Advised to monitor at home and bring readings to follow-up in 4 to 6 weeks. Will get labs and follow-up pending results. If blood pressure remains elevated would advise starting low-dose medication. He agrees with plan. Patient seen and examined. Comprehensive discussion was done on the following. 1. Nutrition: It is important to follow a healthy diet based on lots of vegetables and legumes and good fat. Avoid processed food and processed carbohydrates. Learn to prepare your own meals. Learn to read labels and avoid high fructose corn syrup, processed chemicals added to increase shelf life and preprepared meals. Avoid fast foods. Learn to eat slowly and plan meals for a week. Try to count calories and be mindful off daily calorie intake. Get into the habit of keeping an eye on your weight by using an appropriate scale. Learn to log exercise and discussed fitness Apps like [employer] which can help keep log off calories taken versus calories burned. Local food should be preferred. Discussed Dirty Dozen Versus Clean Fifteen. Discussed healthy supplements like fish oil, Tumeric, Curcumin, Melatonin, Resveratrol, Probiotics, Vitamin-D, Alpha-Lipoic acid, Vitamin-D and coconut oil. 2. It is important to exercise regularly. Is a good habit to walk at least 30-45 minutes a day. Gentle weightlifting with standard precautions to protect the back. Finding activity like cycling or hiking and get into the habit of engaging in it. Stretching before and after the exercises important. It is also important to contact me if there are any problems like shortness of breath, chest pain, back pain and joint or muscle pain associated with the exercise. 3. Discussed age appropriate screening guidelines. Colonoscopy needs to start at age 50 with stool for occult blood as appropriate. There is a new test that can test for genetic abnormalities in the stool sample. This would not replace a colonoscopy but could be used as a screening tool for patients who do not want a colonoscopy. We discussed the importance of early detection of colon cancer. 4. Discussed current PSA screening. PSA screening can be done in most patients between age 50 and 65. However early detection of prostate cancer needs to carefully be balanced with complications with treatment. These include incontinence, impotence etc. Each patient should decide if they would like to have this test. 5. Discussed safe driving and no use of smart phone while driving 6. Age-appropriate immunizations were discussed. A tetanus booster is needed every 10 years. Flu vaccine is recommended every year just before the start of the flu season. Shingles vaccine is recommended after age 50 but not all insurances cover it. Pneumonia vaccine is given after age 65 unless there are certain comorbidities for which it is started earlier. 7. Diagnostic labs were discussed. These could include CBC CMP and lipids with fasting blood glucose and insulin levels. Vitamin D and hemoglobin A1c testing might be appropriate. Case discussed with collaborating physician Izzy Monteiro who reviewed the assessment and plan. Chart, medications, labs, vital signs reviewed. Dictation was accomplished with the use of [employer] voice recognition software, prone to medical misidentifications and grammatical errors. This is unintentional and the practitioner does try to identify and correct these, but some could still be present. Please do not hesitate to contact practitioner for clarification. All questions answered to patients satisfaction. Patient verbalized understanding of diagnosis and treatments explained. To call sooner prior to next visit it any questions/concerns arise. 02/15/2024 Vitamin D deficiency (ICD-10 - E55.9) 10/22/2023 Elevated blood pressure reading (ICD-10 - R03.0) #Hernia. Left lower abdominal wall. He is already seen general surgery and needs updated referral to proceed with surgery. He will call us with surgeons information to process referral. Denies any bowel symptoms. No increased pain. Of note he did have prior hernia repair in 2011. #Vitamin D deficiency. Low in the past. Currently on supplement. Will get updated comprehensive labs prior to annual physical. #Elevated blood pressure. Minimally elevated in the office today. Discussed goal less than 130/80. He does have a blood pressure cuff at home and will monitor periodically. Discussed healthy diet regular exercise will check at follow-up in 2 months. #Urethral stricture. Reports cystoscopy showing urethral stricture. He is following with Dr. Shola Larson and will need surgery in the future however they would like him to have his hernia repair done and colonoscopy prior to stricture repair. Case discussed with collaborating physician Izzy Monteiro who reviewed the assessment and plan. Chart, medications, labs, vital signs reviewed. Dictation was accomplished with the use of [employer] voice recognition software, prone to medical misidentifications [...] Dictation was accomplished with the use of [employer] voice recognition software, prone to medical misidentifications and grammatical errors. This is unintentional and the practitioner does try to identify and correct these, but some could still be present. Please do not hesitate to contact practitioner for clarification. All questions answered to patients satisfaction. Patient verbalized understanding of diagnosis and treatments explained. To call sooner prior to next visit it any questions/concerns arise. 10/22/2023 Stricture of male urethra, unspecified stricture type (ICD-10 - N35.919) #Hernia. Left lower abdominal wall. He is already seen general surgery and needs updated referral to proceed with surgery. He will call us with surgeons information to process referral. Denies any bowel symptoms. No increased pain. Of note he did have prior hernia repair in 2011. #Vitamin D deficiency. Low in the past. Currently on supplement. Will get updated comprehensive labs prior to annual physical. #Elevated blood pressure. Minimally elevated in the office today. Discussed goal less than 130/80. He does have a blood pressure cuff at home and will monitor periodically. Discussed healthy diet regular exercise will check at follow-up in 2 months. #Urethral stricture. Reports cystoscopy showing urethral stricture. He is following with Dr. Shola Larson and will need surgery in the future however they would like him to have his hernia repair done and colonoscopy prior to stricture repair. Case discussed with collaborating physician Izzy Monteiro who reviewed the assessment and plan. Chart, medications, labs, vital signs reviewed. Dictation was accomplished with the use of [employer] voice recognition software, prone to medical misidentifications and grammatical errors. This is unintentional and the practitioner does try to identify and correct these, but some could still be present. Please do not hesitate to contact practitioner for clarification. All questions answered to patients satisfaction. Patient verbalized understanding of diagnosis and treatments explained. To call sooner prior to next visit it any questions/concerns arise. 02/15/2024 Screening for lipid disorders (ICD-10 - Z13.220) 02/17/2024 Screening for heart disease (ICD-10 - [...] Dictation was accomplished with the use of [employer] voice recognition software, prone to medical misidentifications and grammatical errors. This is unintentional and the practitioner does try to identify and correct these, but some could still be present. Please do not hesitate to contact practitioner for clarification. All questions answered to patients satisfaction. Patient verbalized understanding of diagnosis and treatments explained. To call sooner prior to next visit it any questions/concerns arise. 02/15/2024 Screening for diabetes mellitus (ICD-10 - Z13.1) 02/17/2024 Family history of heart disease (ICD-10 [...] Dictation was accomplished with the use of [employer] voice recognition software, prone to medical misidentifications and grammatical errors. This is unintentional and the practitioner does try to identify and correct these, but some could still be present. Please do not hesitate to contact practitioner for clarification. All questions answered to patients satisfaction. Patient verbalized understanding of diagnosis and treatments explained. To call sooner prior to next visit it any questions/concerns arise. 02/15/2024 Screening for thyroid disorder (ICD-10 - Z13.29) 02/17/2024 Other obesity due to excess calories [...] Dictation was accomplished with the use of [employer] voice recognition software, prone to medical misidentifications [...] Dictation was accomplished with the use of [employer] voice recognition software, prone to medical misidentifications [...] Dictation was accomplished with the use of [employer] voice recognition software, prone to medical misidentifications [...] Dictation was accomplished with the use of [employer] voice recognition software, prone to medical misidentifications [...] Dictation was accomplished with the use of [employer] voice recognition software, prone to medical misidentifications [...] it any questions/concerns arise. PLAN OF TREATMENT Pending Test Test Name Order Date 25OH VITAMIN D 02/15/2024 COMPREHENSIVE METABOLIC PANEL 02/15/2024 COMPREHENSIVE METABOLIC PANEL 10/22/2023 HEMOGLOBIN A1C 10/22/2023 HEMOGLOBIN A1C 02/15/2024 LIPID PANEL 10/22/2023 LIPID PANEL 02/15/2024 TSH 02/15/2024 URINALYSIS W/REFLEX CULTURE 02/15/2024 CBC with Differential 02/15/2024 LIPID PANEL, STANDARD 02/17/2024 CBC (INCLUDES DIFF/PLT) 10/22/2023 URINALYSIS, COMPLETE 10/22/2023 TSH 10/22/2023 VITAMIN D,25-OH,TOTAL,IA 02/17/2024 VITAMIN D, 1,25 DIHYDROXY LC/MS/MS 10/21 Next Appt Details Provider Name:Morena Jarvis, Leon 05/04/2024 01:00:00 PM, [address] [facility] [address], [place], [address], Insurance Providers Payer Name Payer Address Payer Phone Subscriber Number Group Number Insured Name Patient Relationship to Insured Coverage Start Date Coverage End Date [facility] [address] [place] [address] [phone] [id number] Michael Mckeon Self - patient is the insured MEDICAL (GENERAL) HISTORY Surgical History Surgery Date(Month/Year) splenectomy hernia repair left inguinal with mesh 11/20/2023
[2024-02-29 11:44] VITALS: BP 122/72; PULSE 72; BMI 32.7
== END 2024-02-29 11:46 | disposition home or self-care (01) ==
PROVIDERS: PCP Physician Assistant; Visit Provider Surgery
DX: R10.32 Left lower quadrant pain (principal)
CPT/HCPCS: 99214

== ENCOUNTER → 2024-02-29 11:37 | Outpatient (BNVA) | payer BC, SELFPAY | PROVIDERS: PCP Physician Assistant; Visit Provider Surgery ==

== ENCOUNTER 2024-03-01 08:23 | Outpatient (AMB) | payer BC, SELFPAY ==
--- NOTE | 2024-03-01 08:25 | MHC.OFFVIS ---
Vital Signs 03/01/24 08:30 Height 5 ft 10 in Weight 230 lb BMI 33.0 BP 149/70 H Blood Pressure Location Rt brachial Position Sitting Pulse 72 Pulse Source Pulse Oximeter Pulse Oximetry (%) 98 Oxygen Delivery Method Room Air Intake Visit Reasons: Other specified postprocedural states Intake Note: While sitting 0/10 while moving or sneezing 11/23 Records Management Manager Required: No Accompanied by: Self / Same As Patient Allergies No Known Drug Allergies Allergy (Unknown, Verified 03/01/24 08:29) Unknown peanut Allergy (Verified 03/01/24 08:29) Anaphylaxis HPI HPI Other specified postprocedural states: Details: Patient is a 43 years old male with recent history of left inguinal hernia repair with mesh on 11/20/23 presents today for initial evaluation of persistent left groin/inguinal deep pain since surgery. Denies any recent trauma, injury or falls. 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 He is eager to restart gym exercising and return to work but has not been able to do so due to ongoing and concerning pain with heavy lifting, pulling, twisting, climbing ladders or stairs, pushing, straining with BMs or coughing, and sneezing. Pain is localized to medial aspect of left groin with reproducible pain with deep palpation and coughing or straining sitting and supine position. Denies pain at the incisional line or scrotum. Patient was referred to our office by his surgeon Dr. Fraser for further evaluation. Patient reports he recently completed left groin US at [facility] which was normal findings except incidentally noted are two lymph nodes with the largest measuring 1.5 x0.3 x 0.4 cm. Patient reports recent cough episodes but no fever or chills, infection, exposure to known sick contacts, abdominal pain, numbness or tingling, weakness, bowel or bladder dysfunction or saddle anesthesia. Location: Left inguinal/groin pain, medial aspect Duration: 4 months ago since left inguinal hernia repair with mesh surgery 11/20/23 Characteristics of symptom or complaint: Gym, cutting, sharp, burning, twisting, pulling Aggravating or associated factors: Heavy lifting, twisting, pulling, pushing, sneezing, coughing, bearing down Relieving factors: Sitting, not putting weight on it, avoiding lifting, pushing, coughing Treatment: Ibuprofen [facility] Medical History Left inguinal hernia (11/20/23) Surgical History History of surgery Hx of splenectomy Hx of hernia repair Social History Are you a primary career resource specialist to a significant other at home: No Do you presently have visiting nurse or other home services: No Alcohol intake: current Alcohol intake frequency: holidays/special occasions only Patient Tobacco Use Status: Never used Tobacco Review of Systems Const All systems reviewed & are unremarkable except as noted in HPI and below Physical Exam Vital Signs: Last Vital Signs Pulse 72 03/01/24 08:30 BP 149/70 H 03/01/24 08:30 Pulse Ox 98 03/01/24 08:30 Oxygen Delivery Method Room Air 03/01/24 08:30 BMI result Body Mass Index 33.0 General: Appears afebrile. Alert and oriented. Mood and affect appropriate. Follows and participates in conversation appropriately. Respiratory effort is unlabored. No cough. Able to transition from sit to stand unassisted. Ambulates with bilaterally normal heel strike and toe off. GI Inspection: Yes normal to inspection, No abdominal wall ecchymosis, No distended, Yes obesity, Yes scar (well healed left groin incision), No visible herniation and No visible pulsation Palpation (GI): Soft to palpation, nontender, no guarding and No Carnett's sign positive General: Yes no CVA tenderness Male General Exam: No inguinal lymphadenopathy and Yes tenderness (tenderness with deep palpation in medial aspect of left groin) Back/Spine/Pelvis Back: no CVA tenderness Extrem General: Yes capillary refill normal, Yes no clubbing, cyanosis or edema and Yes no calf tenderness Results Reviewed Results Reviewed: US LEFT GROIN 02/18/24 at [facility] INDICATION: Persistent left inguinal pain. Status post hernia repair x4 months ago. TECHNIQUE: Left Inguinal Ultrasound. COMPARISON: US 10/23/2022, CT A/P 10/27/2022. FINDINGS: There are no masses, collections, or sonographic evidence of left inguinal hernia identified within the area of pain. There are no focal fluid collections identified. Incidentally noted are two lymph nodes with the largest measuring 1.5 x 0.3 x 0.4 cm. The lymph nodes demonstrate reniform shape and echogenic hilum. There is no cortical thickening. IMPRESSION: No masses, collections, or evidence of hernia identified within the area of pain. Few small benign-appearing inguinal lymph nodes. Assessment & Plan Assessment & Plan (1) Status post left inguinal hernia repair: Code(s): Z98.890 - Other specified postprocedural states; Z87.19 - Personal history of other diseases of the digestive system Category: Surgical (2) Deep left inguinal pain: Code(s): R10.32 - Left lower quadrant pain Category: Medical Plan Patient presents today with 4 months persistent pain after inguinal hernia repair with mesh. His incision is healing very well. His tenderness is localized to medial aspect of left groin. He recently underwent US left groin which was normal except it showed few small benign-appearing inguinal lymph nodes. We discussed this could be normal after recent surgery or can signify potential infection or body's response to mesh. CT scan is ordered to further evaluate this. He showed CBC with differential and urine culture reports on his phone portal with date of 02/18/24 which were normal. Will request these results from his PCP office. Tentatively plan for ilioinguinal and iliohypogastric nerve block under US guidance as next steps if normal CT scan findings. Work note provided at patient's request today. Recommend light duty at work and avoid heavy lifting, pulling, pushing, or climbing ladders. Patient works at construction. His work time off might need to continue if he cannot be accommodated for light work duties, such as administrative/desk work. I have informed patient our office is not certified to perform Functional Capacity Assessment and if needed, we will send referral to [facility], physical therapy for this. Questions and concerns have been answered and patient agreed with the treatment plan. Follow-up for CT scan results and sooner as needed. Orders: Orders CT abdomen pelvis w IV con Today R10.32 - Left lower quadrant pain, Z87.19 - Personal history of other diseases of the digestive system, Z98.890 - Other specified postprocedural states Coding Level of Care Code New Pt Level 4 (98045) Complex EM visit Add On G2211 Diagnoses Status post left inguinal hernia repair Z98.890; Z87.19 Deep left inguinal pain R10.32
--- OUTSIDE RECORDS SUMMARY | 2024-03-01 08:27 | XMS_ITS ---
Author Organization [facility] Address [address] [place] [address] Care Team Providers Care Button Sewer Name Role Phone VijayMorena urbina [phone] REASON FOR VISIT US results Encounters Encounter Location Date Provider Diagnosis [address] [facility] [address] [place] [address] 02/24/2024 Morena Jarvis PLAN OF TREATMENT Next Appt Details Provider Name:Morena Jarvis, 0 05/04/2024 01:00:00 PM, [address] [facility], [place], [address], Progress Notes * Mack MCKEONOB: 9 (43 yo M)Acc No.[id number]:02/24/2024 Patient:??MIKE Jeanadilene :1980?Age:43 Y?Sex:Ethel jose a Address:[address] [place] [address] * * Date:??
--- OUTSIDE RECORDS SUMMARY | 2024-03-01 08:27 | XMS_ITS ---
Author Organization [facility] Address [address] [place] [address] Care Team Providers Care Clearing Hand Name Role Phone Simona Morena Unavailable [phone] REASON FOR VISIT Patient is here for [...] history of heart disease (Z82.49) Active confirmed 390006366 Problem Other obesity due to excess calories (E66.09) Active confirmed [id number] Problem Body mass index [BMI] 33.0-33.9, adult (Z68.33) Active confirmed [id number] VITAL SIGNS Heart Rate 63 /min 02/17/2024 Blood pressure systolic 132 mm Hg 02/17/20 24 Blood pressure diastolic 78 mm Hg 024 Weight 230 lbs 02/17/2024 BMI 33 kg/m2 02/17/2024 Height 70 in 02/17/2024 Oximetry 99 % 02/17/2024 Encounters Encounter Location Date Provider Diagnosis [address] [address] 02/17/2024 Morena Jarvis Vitamin D deficiency E55.9 [...] Dictation was accomplished with the use of [employer] voice recognition software, prone to medical misidentifications [...] Dictation was accomplished with the use of [employer] voice recognition software, prone to medical misidentifications [...] Dictation was accomplished with the use of [employer] voice recognition software, prone to medical misidentifications [...] Dictation was accomplished with the use of [employer] voice recognition software, prone to medical misidentifications [...] Dictation was accomplished with the use of [employer] voice recognition software, prone to medical misidentifications [...] Dictation was accomplished with the use of [employer] voice recognition software, prone to medical misidentifications [...] Dictation was accomplished with the use of [employer] voice recognition software, prone to medical misidentifications [...] Dictation was accomplished with the use of [employer] voice recognition software, prone to medical misidentifications [...] Dictation was accomplished with the use of [employer] voice recognition software, prone to medical misidentifications [...] Dictation was accomplished with the use of [employer] voice recognition software, prone to medical misidentifications [...] Reason: Provider Name:Leon Araujo 05/04/2024 01:00:00 PM, [address] [place] [address], [facility] [address], [place], [address], Progress Notes * Mack MCKEONOB: 9 (43 yo M)Acc No.[id number]:02/17/2024 Progress Notes Patient:??Michael MCKEON Provider:??Morena Jarvis PA-C :1980?Age:43 Y?Sex:Ethel naranjo Date:02/17/2024 Address:[address] [place] [address] [id number] Subjective: * Chief Complaints: * ?1. Patient [...] Dictation was accomplished with the use of [employer] voice recognition software, prone to medical misidentifications [...] * Images: Billing Information: * Visit Code:?? 35351 Office Visit, Est Pt., Level 4. * [...]
--- OUTSIDE RECORDS SUMMARY | 2024-03-01 08:28 | XMS_ITS | Patient Health Record ---
Author Organization [facility] Address [address] [place] [address] Care Team Providers Care Automation Driver Name Role Phone Morena Jarvis Unavailable [phone] ALLERGIES No Known Allergies RESULTS Component Value Reference Range Notes Hemoglobin [id number] Reviewed date:02/17/2024 10:02:26 AM Interpretation: Performing Lab:[facility], [address] [place] [address], Phone - [phone], Director Yovany Quiñones Notes/Report: Clinical Information:SRC: Hemoglobin A1c 5.6 4.8-5.6 % . Prediabetes: 5.7 - 6.4 Diabetes: >6.4 Glycemic control for adults with diabetes: <7.0 [id number] Reviewed date:02/17/2024 10:02:10 AM Interpretation: Performing Lab:[facility], [address] [place] [address], [place], Phone - [phone], Director Yovany Quiñones Notes/Report: Clinical Information:SRC: TSH 0.737 0.450-4.500 uIU/mL CBC With Differential/Platel et-[id number] Reviewed date:02/17/2024 10:03:16 AM Interpretation: Performing Lab:[facility] [place], [address] [facility], [place], Phone - [phone], Director Yovany Quiñones Notes/Report: Clinical Information:SRC: WBC [...] 0.0-0.1 x10E3/uL NRBC Hematology Comments: Urine Culture, Routine-[id number] Reviewed date:02/17/2024 08:52:43 AM Interpretation: Performing Lab:[facility], [address] [place] [address], Phone - [phone], Director - Nuria Notes/Report: Clinical Information:SRC: Clinical Information:SRC:UC Urine Culture, Routine Final report Result 1 No growth Vitamin D, 44-[id number] Reviewed date:02/17/2024 10:01:51 AM Interpretation: Performing Lab:[facility], [address] [place] [address], Phone - [phone], Director - Nuria Notes/Report: Clinical Information:SRC: Vitamin D, 25-Hydroxy 23.3 30.0-100.0 ng/mL Vitamin D deficiency has been defined by the [place] [employer] and an Endocrine Society practice guideline as a level of serum 25-OH vitamin D less than 20 ng/mL (1,2). The Endocrine Society went on to further define vitamin D insufficiency as a level between 21 and 29 ng/mL (2). 1. IOM ([place] [employer]). 2010. Dietary reference intakes for calcium and D. [place]: The National Academies Press. 2. Armani MF, Malini [place], Garcia [place], et al. Evaluation, treatment, and prevention of vitamin D deficiency: an Endocrine Society clinical practice guideline. JCEM. 2010; 96(7):1911-30. Lipid Panel-[id number] Reviewed date:02/17/2024 10:02:49 AM Interpretation: Performing Lab:[facility] [place], [address], [place], Phone - [phone], Director - Nuria Notes/Report: Clinical Information:SRC:UC Cholesterol, Total 236 100-199 mg/dL Triglycerides 227 0-149 mg/dL HDL Cholesterol 36 >39 mg/dL VLDL Cholesterol Jonathan 42 5-40 mg/dL LDL Chol Calc ([facility]) 158 0-99 mg/dL LDL Calc Comment: REASON FOR REFERRAL Diagnosis 1 Hernia (K46.9) Referral Organization [facility] 119 Referring Provider First Name Morena Ref[facility] Referring Provider Speciality Internal edicine Referred Provider Specialty General Surg khadar General Notes MAGNOLIA YADAV MD, [address] [place] [address], [address], [place] [address], , Clinical Notes Gurwinder Slaughter 02:10:17 PM > I called the phone number above and they said they're not the general surgery department. I refaxed the referral to general surgery [phone]. Their phone number is [phone], Gurwinder Slaughter 11/17/2023 03:55:25 PM > The patient is scheduled for surgery on 11/20/2023 at 8:50 am. Pt is aware Referral Priority Routine Diagnosis 1 Encounter for screen ing for malignant neoplasm of colon (Z12.11) Referral Organization [place] [address] Referring Provider First Name Morena Referring Provider Last Name [facility] Referring Provider Speciality Internal edicine Referred Provider Lino Braxton Referred Provider Specialty Gastroentero logy General Notes [address] [place] [address], [address] [place] [address], [phone], [phone] Clinical Notes Leslee Betancur 024 11:50:15 AM [...] due to excess calories (E66.09) Active confirmed [id number] Problem Vitamin D deficiency (E55.9) Active confirmed 18293132 Problem Body mass index [BMI] 33.0-33.9, adult (Z68.33) Active confirmed 050896103 Problem Family history of heart disease (Z82.49) Active confirmed 199742509 Problem Screening for heart disease (Z13.6) Active confirmed Heart disease screening (546568908) Problem Elevated lipids (E78.5) Active confirmed Elevated fast ing lipid profile (823735083544) Problem Stricture of male urethra, unspecified 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) Active confirmed [id number] VITAL SIGNS Heart Rate 63 /min 02/17/2024 Oximetry 99 % 02/17/2024 Blood pressure diastolic 78 mm Hg 02/17/2024 Height 70 in 02/17/2024 Blood pressure systolic 132 mm Hg 02/17/2024 Weight 230 lbs 02/17/2024 BMI 33 kg/m2 02/17/2024 Encounters Encounter Location Date Provider Diagnosis [address] [address] 10/22/2023 Morena Svrcek Vitamin D deficiency E55.9 ; Hernia K46.9 ; Elevated blood pressure reading R03.0 and Stricture of male urethra, unspecified stricture type N35.919 [address] [address] 12/23/2023 Morena Svrcek Encounter for screening for malignant neoplasm of colon Z12.11 ; Annual physical exam Z00.00 and Elevated blood pressure reading R03.[address] [address] 02/17/2024 Morena Svrcek Vitamin D deficiency E55.9 [...] counseling, encounter for Z71.3 [address] [address] 02/24/2024 Morena Svrk [facility] [address] [place] [address] 11/12[facility] [address] [facility] [address] [place] [address] 11/20/[address] [facility] [address] [place] [address] 02/15/2024 Morena [facility] [place] exam Z00.00 ; Vitamin D deficiency E55.9 ; Screening for lipid disorders Z13.220 ; Screening for diabetes mellitus Z13.1 and Screening for thyroid disorder Z13.29 [address] [address] 12/23/2023 Morena Svrcek [address] [address] 02/15/2024 [facility] Encounter Date Diagnosis Assessment Notes Treatment [...] Dictation was accomplished with the use of Epicsell voice recognition software, prone to medical misidentifications [...] Dictation was accomplished with the use of Epicsell voice recognition software, prone to medical misidentifications [...] log exercise and discussed fitness Apps like Traffio which can help keep log off calories [...] Dictation was accomplished with the use of Epicsell voice recognition software, prone to medical misidentifications [...] log exercise and discussed fitness Apps like Traffio which can help keep log off calories [...] Dictation was accomplished with the use of Epicsell voice recognition software, prone to medical misidentifications [...] Dictation was accomplished with the use of Epicsell voice recognition software, prone to medical misidentifications [...] Dictation was accomplished with the use of Epicsell voice recognition software, prone to medical misidentifications [...] log exercise and discussed fitness Apps like Traffio which can help keep log off calories [...] Dictation was accomplished with the use of Epicsell voice recognition software, prone to medical misidentifications [...] Dictation was accomplished with the use of Epicsell voice recognition software, prone to medical misidentifications [...] Dictation was accomplished with the use of Epicsell voice recognition software, prone to medical misidentifications [...] Dictation was accomplished with the use of Epicsell voice recognition software, prone to medical misidentifications [...] Dictation was accomplished with the use of Epicsell voice recognition software, prone to medical misidentifications [...] Dictation was accomplished with the use of Epicsell voice recognition software, prone to medical misidentifications [...] Dictation was accomplished with the use of Epicsell voice recognition software, prone to medical misidentifications [...] Dictation was accomplished with the use of Epicsell voice recognition software, prone to medical misidentifications [...] Dictation was accomplished with the use of Epicsell voice recognition software, prone to medical misidentifications [...] Dictation was accomplished with the use of Epicsell voice recognition software, prone to medical misidentifications [...] Dictation was accomplished with the use of Epicsell voice recognition software, prone to medical misidentifications [...] Name:Morena Jarvis, Leon 05/04/2024 01:00:00 PM, [address] [facility] [address], [place], [address], Insurance Providers Payer Name Payer Address Payer Phone Subscriber Number Group Number Insured Name Patient Relationship to Insured Coverage Start Date Coverage End Date [facility] [address] [place] [address] [id number] Michael Mckeon Self - patient is the insured MEDICAL (GENERAL) HISTORY Surgical History Surgery Date(Month/Year) splenectomy hernia repair left inguinal with mesh 11/20/2023
--- OUTSIDE RECORDS SUMMARY | 2024-03-01 08:28 | XMS_ITS ---
Author Organization [facility] Address [address] [place] [address] Care Team Providers Care Keypunch Operator Name Role Phone VijayMorena urbina Unavailable [phone] Encounters Encounter Location Date Provider Diagnosis [facility] [address] [place] [address] 02/15/2024 Morena Jarvis Annual physical exam Z00.00 [...] Name:Morena Jarvis, 0 05/04/2024 01:00:00 PM, [address] [facility], [place], [address], Progress Notes * Mack MCKEONOB: 9 (43 yo M)Acc No.[id number]:02/15/2024 Patient:??Michael MCKEON :1980?Age:43 Y?Sex:Ethel naranjo Address:[address] [place] [address] Subjective: * Chief Complaints: * ? * [...]
[2024-03-01 08:30] VITALS: BP 149/70; PULSE 72; O2SAT 98; BMI 33.0
== END 2024-03-01 09:16 | disposition home or self-care (01) ==
PROVIDERS: PCP Physician Assistant; Visit Provider Nurse Practitioner Family
DX: Z98.890 Other specified postprocedural states (principal); Z87.19 Personal history of other diseases of the digestive system; R10.32 Left lower quadrant pain
CPT/HCPCS: 99204

== ENCOUNTER 2024-03-30 13:50 | Outpatient (REF) | payer BC, SELFPAY ==
--- NOTE | ~2024-03-30 | CT_ITS ---
EXAMINATION: CT ABDOMEN AND PELVIS WITH CONTRAST CLINICAL INFORMATION: Post procedure. Persistent left inguinal region pain. Status post inguinal hernia repair in November 2023. COMPARISON: None available. TECHNIQUE: Multidetector volumetric images were obtained from the superior aspect of the liver through the pubic symphysis following administration 85 mL of Omnipaque 350 intravenous contrast. Sagittal and coronal reformatted images were obtained on the technologist's workstation. Oral contrast: No This CT examination was performed using dose optimization techniques as appropriate, variously including the following: *Automated exposure control *Adjustment of mA and/or kV according to patient size (this includes techniques or standardized protocols for targeted exams where dose is matched to indication/reason for exam; i.e. extremities or head) *Use of iterative reconstruction technique DLP: 696 mGy centimeter. FINDINGS: LUNG BASES: No acute airspace disease in the included lung bases. LIVER, GALLBLADDER, AND BILIARY TREE: Liver measures 20 cm with decreased enhancement pattern. No focal mass. Geographic morphology and enhancement pattern. Main portal vein and hepatic veins and intrahepatic portion of the IVC are grossly patent. Gallbladder is contracted without pericholecystic fluid collection or gallbladder wall thickening. No intrahepatic or extrahepatic biliary ductal dilatation. PANCREAS: No focal mass. No peripancreatic fluid collection. No main pancreatic ductal dilatation. SPLEEN: Absent. Vascular clips at the left upper quadrant abdomen. ADRENAL GLANDS: No nodular lesions. KIDNEYS AND URETERS: No hydronephrosis. No gross renal mass. Normal enhancement pattern of the renal parenchyma. There is a 9 mm hypodensity in the posterior midportion/lower pole, left kidney. BLADDER: Collapsed appearance with the wall thickening. GASTROINTESTINAL TRACT: No intestinal obstruction pattern. No pneumatosis intestinalis. No pneumoperitoneum. No ascites. Appendix is normal. ABDOMINAL WALL: There is a well-defined, lobulated, 24 x 17 mm fluid density abnormality beneath the left abdominal wall/oblique muscles at the left inguinal region. There is no herniation. There are small fat-containing umbilical hernia. LYMPH NODES: Nonspecific prominent lymph nodes, mesenteric and retroperitoneum. VASCULAR: No aneurysm or dissection, abdominal aorta. PELVIC VISCERA: Dystrophic calcifications in the region of the prostate gland without gross enlargement versus post surgical resection. OSSEOUS STRUCTURES: Sclerosis and the sacroiliac joints. Multilevel thoracolumbar spondylosis more conspicuous at L3-4. CT/CT abdomen pelvis w IV con IMPRESSION: Probable 24 x 17 mm seroma at the surgical site, left inguinal region. Small fat-containing umbilical hernia. Hepatomegaly and steatosis. Small cystic lesion left kidney. Spondylosis L3-4.. Fleischner guidelines were followed. Electronically signed by: Kei Spears MD 03/30/2024 03:26 PM EST
[2024-03-30] MEDS: iohexoL 350 MG/ML 100 ML INFUS..BTL IV (15:17)
[2024-03-30] MEDS: Barium Sulfate Oral (Berry) 450 ML ORAL.SUSP PO (15:17)
== END 2024-03-30 13:51 | disposition home or self-care (01) ==
LOC: HO.CT 13:50
PROVIDERS: PCP Physician Assistant; Visit Provider Nurse Practitioner Family
DX: R10.32 Left lower quadrant pain (principal); Z98.890 Other specified postprocedural states; Z87.19 Personal history of other diseases of the digestive system
CPT/HCPCS: 74177; Q9967

== ENCOUNTER → 2024-03-30 13:52 | Outpatient (BNV) | payer BC, SELFPAY | PROVIDERS: PCP Physician Assistant; Visit Provider Radiology Diagnostic Radiology | DX: R10.32 Left lower quadrant pain (principal) | CPT/HCPCS: 74177 ==

== ENCOUNTER 2024-07-13 10:01 | Outpatient (AMB) | payer BC, SELFPAY ==
--- NOTE | 2024-07-13 10:05 | MHC.OFFVIS ---
Vital Signs 07/13/24 10:17 Height 5 ft 10 in Weight 224 lb BMI 32.1 BP 149/78 H Blood Pressure Location Rt brachial Position Sitting Pulse 87 Intake Visit Reasons: hernia Intake Note: Patient scheduled today c/o Lt groin pain that started after LIH repair last year in November. Patient reports recent Lt groin US @ [facility]. Environmental Conflict Manager Required: No Accompanied by: Self / Same As Patient Allergies No Known Drug Allergies Allergy (Unknown, Verified 07/13/24 10:19) Unknown peanut Allergy (Verified 07/13/24 10:19) Anaphylaxis Medication List - Last Reconciled 07/13/24 by Genaro Werner MD barium sulfate 2.1%(w/v),2.0%(w/w) 150 mL PO ONCE cholecalciferol (vitamin D3) 50 mcg PO DAILY epinephrine 0.3 mg IM NEEDED PRN [multivitamin 1 tab PO DAILY] tadalafil 5 mg PO DAILY 90 days zinc 10 mg PO DAILY HPI HPI hernia: Details: He had undergone left inguinal hernia repair with Dr. Fraser last November,. He has been seeing him postop because of chronic left groin pain. He apparently had a seroma drained as well in the past He had an ultrasound done last March which did not reveal any recurrent hernia He says that he continues to have this left groin pain after the surgery and that he has had some swelling and tenderness of his left testicle as well. He feels that the left lower quadrant is ?swollen?. [facility] Medical History Left inguinal hernia (11/20/23) Surgical History History of surgery Hx of splenectomy Hx of hernia repair Social History Are you a primary rn primary care to a significant other at home: No Do you presently have visiting nurse or other home services: No Alcohol intake: current Alcohol intake frequency: holidays/special occasions only Patient Tobacco Use Status: Never used Tobacco Review of Systems Const Denies chills and Denies fever(s) Card Denies chest pain, Denies dyspnea and Denies dyspnea on exertion Resp Denies cough, Denies dyspnea and Denies dyspnea on exertion GI Denies hematochezia and Denies change in bowel habits Denies hematuria and Denies difficulty urinating Musc Denies back pain and Denies limited range of motion Neuro Denies focal weakness and Denies convulsions Psych Denies depression and Denies mood swings Physical Exam Vital Signs: Last Vital Signs Pulse 87 07/13/24 10:17 BP 149/78 H 07/13/24 10:17 BMI result Body Mass Index 32.1 Const General: comfortable and no acute distress Resp Effort & Inspection: normal respiratory effort Cardio Rate: regular rate GI Other: Left inguinal hernia repair site well healed, no obvious recurrent hernia, Palpation (GI): Soft to palpation and not firm Other: Some tenderness in the left testicle Assessment & Plan Assessment & Plan (1) Inguinodynia, left: Code(s): R10.32 - Left lower quadrant pain Category: Surgical Plan: He describes persistent left groin pain. There is no sign of any recurrent hernia at this time. He had an ultrasound done as well already last March 2024 which did not reveal any recurrent hernia He was of his concerns, I am going to order for a CAT scan of the pelvis to rule out any fluid collection or any other pathology at this time. He is comfortable with the plan. I will see him in the office to review the CAT scan. Orders: Orders Creatinine Today R10.32 - Left lower quadrant pain CT pelvis w IV con Today R10.32 - Left lower quadrant pain Blood Urea Nitrogen Today R10.32 - Left lower quadrant pain Coding Level of Care Code Est Pt Level 3 (83655) Diagnoses Inguinodynia, left R10.32
[2024-07-13 10:17] VITALS: BP 149/78; PULSE 87; BMI 32.1
--- OUTSIDE RECORDS SUMMARY | 2024-07-13 10:59 | XMS_ITS | Clinical Summary ---
Author Organization [address] Address [address] [place] [address] Phone Care Team Providers Care Molding Machine Operator Name Role Phone Morena Jarvis Primary Care Provider [phone] Allergies Active Allergy Reactions Criticality Noted Date Comments Other 04/21/2024 No Known Drug Allergies, only external Peanut 04/21/2024 Raw Fruit 10/23/2016 Tree Nuts 10/26/2022 Medications b complex vitamins capsule Take 1 capsule by mouth 1 (one) time each day. Active cholecalciferol (Vitamin D3) 5,000 Units tablet Take 1 tablet (5,000 Units total) by mouth 1 (one) time each day at the same time. 02/17/2024 Active Encounters Date Type Department Care Team Description 04/21/2024 Telephone Gastroenterology [facility] 175 [facility] 175 [facility] [address] [place] [address] Cuca Morrell MD SPECIAL PROCEDURE from Last 3 Months Social History Tobacco Use Types Packs/Day Years Used Date Smoking Tobacco: Never Assessed Sex and Gender Information Value Date Recorded Sex Assigned at Not on file Legal Sex Male 12:25 PM EST Gender Identity Not on file Sexual Orientation Not on file Plan of Treatment Health Maintenance Due Date Last Done Comments DTaP,Tdap,and Td Vaccines (1 - Tdap) 1997 Hepatitis B Vaccines (1 of 3 - 19+ 3-dose series) 1997 Cholesterol Screening (Lipid Panel) 04/14/2023 Colorectal Cancer Screening: Colonoscopy 04/14/2023 Depression Screening 04/14/2023 HIV Screening 04/14/2023 Hepatitis C Screening 04/14/2023 Social Influencers of Health Screening 04/14/2023 COVID-19 Vaccine (2023-2 5 season) 2023 Influenza Vaccine (Season Ended) 2024 HIB Vaccines Aged Out No longer eligi ble based on patient's age to complete this topic HPV Vaccines Aged Out No longer eligi ble based on patient's age to complete this topic Hepatitis A Vaccines Aged Out No long er eligible based on patient's age to complete this topic IPV Vaccines Aged Out No longer eligi ble based on patient's age to complete this topic MMR Vaccines Aged Out No longer eligi ble based on patient's age to complete this topic Meningococcal ACWY Vaccine Aged Out N o longer eligible based on patient's age to complete this topic Meningococcal B Vaccine Aged Out No l onger eligible based on patient's age to complete this topic Pneumococcal Vaccine: Pediat rics (0 to 5 Years) and At-Risk Patients (6 to 64 Years) Aged Out No longer eligible b ased on patient's age to complete this topic RSV Immunization Patients Un monika 20 months Aged Out No longer eligible b ased on patient's age to complete this topic Varicella Vaccines Aged Out No longer eligible based on patient's age to complete this topic Insurance [facility] Care Teams Molding Machine Operator Relationship Specialty Start Date End Date Morena Jarvis PA [address] [place] [id number] PCP - General 03/29/24
--- OUTSIDE RECORDS SUMMARY | 2024-07-13 10:59 | XMS_ITS ---
Author Organization [facility] Address [address] [place] [address] Care Team Providers Care River Driver Name Role Phone Morena Jarvis Unavailable [phone] REASON FOR VISIT RE:Urology referral Encounters Encounter Location Date Provider Diagnosis [address] [address] 07/05/2024 Morena Jarvis PLAN OF TREATMENT No Information Progress Notes * Mack MCKEONOB: 9 (44 yo M)Acc No.[id number]:07/05/2024 Patient:??Michael MCKEON :1980?Age:44 Y?Sex:Ethel naranjo Address:[address] [place] [address] * true * Date:??
--- OUTSIDE RECORDS SUMMARY | 2024-07-13 10:59 | XMS_ITS | Patient Health Record ---
Author Organization [facility] Address [address] [place] [address] Care Team Providers Care Traffic Survey Technician Name Role Phone Morena Jarvis Unavailable [phone] NEREIDAEDDA Magana Unavailable [phone] YOLANDAGRABIEL BENNETT Unavailable [phone] ALLERGIES No Known Allergies RESULTS Component Value Reference Range Notes Hemoglobin [id number] Reviewed date:02/17/2024 10:02:26 AM Interpretation: Performing Lab:[facility], [address] [place] [address], Phone - [phone], Director - Nuria Notes/Report: Clinical Information:SRC: Hemoglobin A1c 5.6 4.8-5.6 % . Prediabetes: 5.7 - 6.4 Diabetes: >6.4 Glycemic control for adults with diabetes: <7.0 [id number] Reviewed date:02/17/2024 10:02:10 AM Interpretation: Performing Lab:[facility], [address] [place] [address], Phone - [phone], Director - Nuria Notes/Report: Clinical Information:SRC: TSH 0.737 0.450-4.500 uIU/mL CBC With Differential/Platel et-[id number] Reviewed date:02/17/2024 10:03:16 AM Interpretation: Performing Lab:[facility], [address] [place] [address], Phone - [phone], Director - Nuria Notes/Report: Clinical Information:SRC: WBC 8.6 3.4-10.8 x10E3/uL [...] 0.0-0.1 x10E3/uL NRBC Hematology Comments: Urine Culture, Routine-[id number] Reviewed date:02/17/2024 08:52:43 AM Interpretation: Performing Lab:[facility] [place], [address] [facility], Phone - [phone], Director - Nuria Notes/Report: Clinical Information:SRC: Clinical Information:SRC: Urine Culture, Routine Final report Result 1 No growth Vitamin D, [id number] Reviewed date:02/17/2024 10:01:51 AM Interpretation: Performing Lab:[facility] [place], [address] [facility], Phone - [phone], Director - Nuria Notes/Report: Clinical Information:SRC: Vitamin D, 25-Hydroxy 23.3 30.0-100.0 ng/mL Vitamin D deficiency has been defined by the [place] [employer] and an Endocrine Society practice guideline as a level of serum 25-OH vitamin D less than 20 ng/mL (1,2). The Endocrine Society went on to further define vitamin D insufficiency as a level between 21 and 29 ng/mL (2). 1. IOM ([place] [employer]). 2010. Dietary reference intakes for calcium and D. [place]: The National Academies Press. 2. Malini John [place], Garcia [place], et al. Evaluation, treatment, and prevention of vitamin D deficiency: an Endocrine Society clinical practice guideline. JCEM. 2010; 96(7):1911-30. Lipid Panel-[id number] Reviewed date:02/17/2024 10:02:49 AM Interpretation: Performing Lab:[facility], [address], [place], Phone - [phone], Director - Nuria Notes/Report: Clinical Information:SRC:UC Cholesterol, Total 236 100-199 mg/dL Triglycerides 227 0-149 mg/dL HDL Cholesterol 36 >39 mg/dL VLDL Cholesterol Jonathan 42 5-40 mg/dL LDL Chol Calc ([facility]) 158 0-99 mg/dL LDL Calc Comment: CBC WITH AUTO DIFFERENTIAL Reviewed date:03/29/2024 04:32:30 PM Interpretation: Performing Lab: Notes/Report: WBC 8.7 4.8-10.8 K/mcL RBC 5.00 4.50-5.50 M/mcL Hemoglobin 14.8 13.5-17.5 g/dL Hematocrit 44.5 42.0-54.0 % MCV 88.3 79.0-98.0 FL MCH 29.4 27.0-32.0 pcg MCHC 33.3 32.0-37.0 g/dL RDW 14.1 11.0-15.0 % Platelets 376 130-400 K/mcL MPV 11.1 7.0-11.0 FL NRBC 0.0 <1.0 % NRBC Absolute 0.00 <0.10 K/mcL Neutrophils Relative 60.3 Lymphocytes Relative 30.1 Monocytes Relative 8.1 Eosinophils Relative 0.7 Basophils Relative 0.5 Immature Granulocytes Relative 0.3 Neutrophils Absolute 5.24 1.50-7.00 K/mcL Lymphocytes Absolute 2.61 1.00-5.00 K/mcL Monocytes Absolute 0.70 0.20-1.00 K/mcL Eosinophils Absolute 0.06 0.00-0.50 K/mcL Basophils Absolute 0.04 0.00-0.20 K/mcL Immature Granulocytes Absolute 0.03 0.00-0.03 K/mcL COMPREHENSIVE METABOLIC PANE L Reviewed date:03/30/2024 08:06:41 AM Interpretation: Performing Lab: Notes/Report: Sodium 136 133-145 mmol/L Potassium 4.1 3.5-5.5 mmol/L Chloride 104 96-110 mmol/L CO2 27 21-32 mmol/L Anion Gap 5 3-11 Glucose 87 70-100 mg/dL BUN 11 5-25 mg/dL Creatinine 0.87 0.70-1.30 mg/dL eGFR 108 >=60 mL/min/1.73m2 Calculati on based on the Chronic Kidney Disease Epidemiology Collaboration (CKD-EPI) equation refit without adjustment for race. BUN/Creatinine Ratio 12.6 Calcium 9.3 8.5-10.5 mg/dL AST (SGOT) 15 10-42 unit/L ALT (SGPT) 17 10-60 unit/L Alkaline Phosphatase 66 42-121 unit/L Total Protein 8.0 6.0-8.0 g/dL Albumin 4.6 3.2-5.0 g/dL Total Bilirubin 0.6 0.0-1.4 mg/dL URINALYSIS WITH REFLEX MICRO SCOPIC AND CULTURE Reviewed date:03/30/2024 08:05:39 AM Interpretation: Performing Lab: Notes/Report: Specific [place] Urine 1.023 1.003-1.030 pH, Urine 5.5 5.0-8.0 pH Leukocytes, Urine Negative Negative Nitrite, Urine Negative Negative Protein, Urine Negative <=Trace mg/dL Glucose, Urine Negative Negative mg/dL Ketones, Urine Negative Negative mg/dL Urobilinogen, Urine 0.2 0.2-1.0 mg/dL Bilirubin, Urine Negative Negative Blood, Urine Negative Negative PSA TOTAL, FREE AND COMPLEXE D Reviewed date:03/30/2024 08:06:11 AM Interpretation: Performing Lab: Notes/Report: Free PSA is a calculated value. The diagnostic usefulness of % free PSA has not been established in patients with Total PSA below 2.6 or above 10 ng/mL. This test was performed using the Centaur Chemiluminescent method. PSA values obtained with other methods cannot be used interchangeably. PSA 0.64 0.00-4.00 ng/mL PSA, Complexed 0.54 0.00-3.00 ng/mL PSA, Free 0.1 PSA, Free Pct 15.6 >25.0 % SEDIMENTATION RATE Reviewed date:03/29/2024 04:32:54 PM Interpretation: Performing Lab: Notes/Report: Sed Rate 4 0-15 mm/hr CULTURE URINE Reviewed date:03/31/2024 09:20:55 AM Interpretation: Performing Lab: Notes/Report: Culture, Urine No growth REASON FOR REFERRAL Diagnosis 1 Hernia (K46.9) Referral Organization [facility] 119 Referring Provider First Name Morena Referring Provider Last Name Svrcek Referring Provider Speciality Internal M edicine Referred Provider Specialty General Surg khadar General Notes MAGNOLIA YADAV MD, [address] [place] [address], [address], [place] [address], , Clinical Notes Gurwinder Slaughter 02:10:17 PM > I called the phone number above and they said they're not the general surgery department. I refaxed the referral to general surgery [phone]. Their phone number is [phone], Gurwinder Slaughter 11/17/2023 03:55:25 PM > The patient is scheduled for surgery on 11/20/2023 at 8:50 am. Pt is aware Referral Priority Routine Diagnosis 1 Encounter for screen ing for malignant neoplasm of colon (Z12.11) Referral Organization [facility] 119 Referring Provider First Name Morena Referring Provider Last Name Svrcek Referring Provider Speciality Internal edicine Referred Provider Lino Braxton Referred Provider Specialty Gastroentero logy General Notes [address] [facility], [address] [address], [phone], [phone] Clinical Notes Leslee Betancur 024 11:50:15 AM >pt cannot book with marina Referral Priority Routine Reason Marina gastro; colo noscopy Diagnosis 1 Colon cancer screeni ng (Z12.11) Referral Organization [facility] 119 Referring Provider First Name Morena Referring Provider Last Name Svrcek Referring Provider Speciality Internal M edicine Referred Provider Lino Braxton Referred Provider Specialty Gastroentero logy General Notes [address] [facility].419 , (p) [phone], (f) [phone] Clinical Notes Debbi Harden 03:39:27 PM >referral faxedSukhjinder Redena 05/31/2024 02:33:25 PM > refaxed, Gurwinder Slaughter 06/14/2024 02:08:36 PM > I called the office, and they informed me that they attempted to contact the patient three times, left voicemails, but did not receive a callback. Referral Priority Routine Reason [facility] Urolo gy; testicular pain; pain in penis; hx of urethra stricture Diagnosis 1 Left testicular pain (N50.812) Diagnosis 2 Stricture of male ur ethra, unspecified 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) Diagnosis 3 Pain in penis (N48.8 9) Referral Organization [place] [address] Referring Provider First Name Morena Referring Provider Last Name Svrk Referring Provider Speciality Internal M edicine Referred Provider Specialty Urology General Notes [address] , (p) [phone], (f) [phone] Clinical Notes Dereck Debbi 01:23:35 PM > referral faxed with deidre Gurwinder Slaughter 07/12/2024 02:44:18 PM > I called the office, and they informed me that they have left voicemails for the patient but have not received a callback. Referral Priority Routine SOCIAL HISTORY Tobacco Use: Social History Observation [...] due to excess calories (E66.09) Active confirmed 585826809 Problem Left testicular pain (N50.812) Active confirmed 91017211216735487 Problem Colon cancer screening (Z12.11) Active confirmed Colon cancer screening (064761469) Problem Burning with urination (R30.0) Active confirmed Dysuria (55369475) Problem Body mass index [BMI] 33.0-33.9, adult (Z68.33) Active confirmed 980991557 Problem Family history of heart disease (Z82.49) Active confirmed 674462918 Problem Left inguinal pain (R10.32) Active confirmed 75752679915480845 Problem Hyperlipidemia, mixed (E78.2) Active confirmed 477871920 Problem Chills (R68.83) Active confirmed Chill (51009129) Problem Screening for heart disease (Z13.6) Active confirmed Heart disease screening (213460326) Problem Aching pain (R52) Active confirmed Aching pain (27069629) Problem Elevated lipids (E78.5) Active confirmed Elevated fastin g lipid profile (654294597576) Problem Vitamin D insufficiency (E55.9) Active confirmed 54383536 Problem Stricture of male urethra, unspecified 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) Active confirmed 96122070353356703 Problem Pain in penis (N48.89) Active confirmed Pain in penis (131167689) VITAL SIGNS Heart Rate 66 /min 07/05/2024 Blood pressure diastolic 72 mm Hg 07/05/2024 Oximetry 98 % 07/05/2024 Height 70 in 07/05/2024 Blood pressure systolic 128 mm Hg 07/05/2024 Weight 226 lbs 07/05/2024 BMI 32.42 kg/m2 07/05/2024 Encounters Encounter Location Date Provider Diagnosis [address] [address] 05/04/2024 Morena Svrcek [address] [address] 05/05/2024 Morena Svrcek [address] [address] 10/22/2023 Morena Svrcek Vitamin D deficiency E55.9 ; Hernia K46.9 ; Elevated blood pressure reading R03.0 and Stricture of male urethra, unspecified stricture type N35.919 [address] [address] 12/23/2023 Morena Svrcek Encounter for screening for malignant neoplasm of colon Z12.11 ; Annual physical exam Z00.00 and Elevated blood pressure reading R03.0 [address] [address] 02/17/2024 Morena Svrcek Vitamin D deficiency E55.9 ; Left inguinal pain R10.32 ; Elevated lipids E78.5 ; Screening for heart disease Z13.6 ; Family history of heart disease Z82.49 ; Other obesity due to excess calories E66.09 ; Body mass index [BMI] 33.0-33.9, adult Z68.33 ; Obesity, class 1 E66.811 ; Elevated blood pressure reading R03.0 and Weight loss counseling, encounter for Z71.3 [place] [address] [address] 03/17/[address] Left inguinal pain R10.32 ; History of inguinal hernia Z87.19 ; Vitamin D insufficiency E55.9 and Hyperlipidemia, mixed E78.2 [address] 03/29/2024 Morena Svrcek Body aches R52 ; Lef t inguinal pain R10.32 ; Chills R68.83 ; Burning with urination R30.0 ; Prostate cancer screening Z12.5 and Change in bowel habits R19.4 [address] 04/07/2024 Morena Svrcek Left inguinal pain R10.32 ; Change in bowel habits R19.4 and Stricture of male urethra, unspecified stricture type N35.919 [place] [address] 05/04/2024 EDDA SALMON Left inguinal pain R10.32 and Left testicular pain N50.812 [address] 05/16/2024 Morena Svrcek Left inguinal pain R10.32 and Left testicular pain N50.[address] [place] [address] 07/05/2024 Morena Svrcek Left testicular pain N50.812 ; Stricture of male urethra, unspecified stricture type N35.919 ; Pain in penis N48.89 and Left inguinal pain R10.32 [facility] [address] [place] [address] 11/12/2023 Morena Svrcek [place] [address] [address] 11/20/[address] [facility] [address] [place] [address] 02/15/2024 Morena Svrcek Annual physical exam Z00.00 ; Vitamin D deficiency E55.9 ; Screening for lipid disorders Z13.220 ; Screening for diabetes mellitus Z13.1 and Screening for thyroid disorder Z13.29 [address] [place] [address] 02/24/2024 Morena Svrcek [address] [place] [address] 03/04/[address] [facility] [address] [place] [address] 03/30/2024 Morena Svrcek [address] [place] [address] 04/07/[address] [place] [address] 04/13/[address] [place] [address] 05/16/[address] [place] [address] 07/05/2024 Morena Svrcek [address] [place] [address] 07/05/2024 Morena Svrcek [address] [place] [address] 12/23/2023 Morena Svrcek [address] [place] [address] 02/15/2024 Morena Svrcek [address] [place] [address] 03/14/2024 Morena Svrcek [address] [place] [address] 03/15/2024 Morena Svrcek [address] [place] [address] 03/17/2024 Morena Svrcek [address] [place] [address] 03/21/2024 Morena Svrcek [address] [place] [address] 03/23/2024 Morena Svrcek [address] [place] [address] 03/25/[address] [place] [address] 03/31/2024 Morena Svrcek [address] [place] [address] 04/04/2024 Morena Svrcek [address] [place] [address] 04/05/2024 Morena Svrcek [address] [place] [address] 04/06/2024 Morena Svrcek [address] [place] [address] 04/14/2024 Morena Svrcek [address] [place] [address] 04/15/2024 Morena Svrcek [address] [place] [address] 04/15/2024 Morena Svrcek [address] [place] [address] 2024 Morena Svrcek [address] [address] 05/10/2024 Morena Svrcek [address] [place] [address] 05/16/2024 Morena Svrcek [address] [place] [address] 07/05/2024 Morena Svrcek ASSESSMENTS Encounter Date Diagnosis Assessment Notes Treatment [...] Dictation was accomplished with the use of [employer] voice recognition software, prone to medical [...] Dictation was accomplished with the use of [employer] voice recognition software, prone to medical [...] log exercise and discussed fitness Apps like [employer] which can help keep log off calories [...] Dictation was accomplished with the use of [employer] voice recognition software, prone to medical [...] log exercise and discussed fitness Apps like [employer] which can help keep log off calories [...] Dictation was accomplished with the use of [employer] voice recognition software, prone to medical [...] Dictation was accomplished with the use of [employer] voice recognition software, prone to medical [...] Dictation was accomplished with the use of [employer] voice recognition software, prone to medical [...] to next visit it any questions/concerns arise. 03/17/2024 History of inguinal hernia (ICD-10 - Z87.19) Michael is a 43-year-old male history of left inguinal hernia recently repaired approximately 4 months ago, vitamin D deficiency, and hyperlipidemia who presents today for urgent care visit for potential recurrence of left-sided hernia. Left inguinal hernia repaired surgically 4 months ago at [facility]. Admits that on ' Katherine he developed an acute pain with associated warmth while he was sitting down. Since this time reports continuous pain on left side as well as heavy sensation in groin. Reports no excruciating pain and continues to produce bowel movements as well as pass flatus. At previous visit ultrasound was obtained showing no acute hernia however incidental enlargement of lymph nodes. Referral to [facility] General surgery previously made and patient provided with contact number to schedule consultation. On physical exam patient is well-appearing and in no acute distress. Vital signs within normal limits. Cardiopulmonary exam unremarkable. On abdominal exam abdomen is soft to palpation, no tenderness in all 4 quadrants. Upon palpation of left lower quadrant while having the patient forcefully cough tenderness elicited as well as a small palpable bulge. Overlying skin is nonerythematous. Reports that CT abdomen and pelvis is scheduled on April 21 through pain management, for further investigation of hernia advised benefit of assessing if imaging can be scheduled sooner. Patient understanding. At this time advised to continue to monitor symptoms and to be aware of red flag signs including worsening abdominal pain, inability to pass bowel movements, inability to pass flatus as well as systemic symptoms including fever, chest pain, shortness of breath, or intractable vomiting or diarrhea. All patient questions answered at this time. # Vitamin D insufficiency: Vitamin D level obtained 02/15/2024 at level of 23.3. Continue vitamin D3 125 mcg once daily. Will continue to monitor. # Hyperlipidemia: Lipid panel last obtained 02/15/2024 with values including cholesterol 236, triglycerides 227, HDL 36, and LDL 158. Will continue to monitor with repeat blood work. All questions have been answered to patient's satisfaction. Patient verbalized understanding of diagnosis and treatments explained. Advised to call sooner prior to next visit it any questions/concerns arise. Case discussed with collaborating physician John Monteiro who reviewed the assessment and plan. Chart, medications, labs, vital signs reviewed. Dictation was accomplished with the use of [employer] voice recognition software, which is prone to medical misidentifications and grammatical errors. This are unintentional and the practitioner does try to identify and correct these, but some could still be present. Please do not hesitate to contact practitioner for clarification. 03/29/2024 Left inguinal pain (ICD-10 - R10.32) #Left inguinal pain -status post repeat hernia repair with mesh placement in November 2023. He has had persistent pain in the area of his hernia repair since then. In the past week symptoms have worsened and now also notes body aches chills sweats as well as change in bowel movements as well as change in bowel movements. He is scheduled for a CAT scan tomorrow at [facility]. Mild tenderness and mild swelling to left inguinal area noted on exam. No skin changes erythema or warmth. Will get comprehensive labs today. Will follow-up pending CAT scan results tomorrow. Discussed signs and symptoms to monitor for. Work note given to be out for the next 2 weeks. He plans to explore FMLA options with his employer. #Body aches chills. COVID flu RSV swab done in the office and pending. Will follow-up pending results. As above will get further workup. #Change in urination. Check UA urine culture and PSA follow-up pending results. #Change in bowel movements. Will get labs and CAT scan and follow-up pending results. Advised to schedule colonoscopy as he is due for baseline screening as well. Case discussed with collaborating physician Izzy Monteiro who reviewed the assessment and plan. Chart, medications, labs, vital signs reviewed. Dictation was accomplished with the use of [employer] voice recognition software, prone to medical [...] to next visit it any questions/concerns arise. 03/29/2024 Body aches (ICD-10 - R52) #Left inguinal pain -status post repeat hernia repair with mesh placement in November 2023. He has had persistent pain in the area of his hernia repair since then. In the past week symptoms have worsened and now also notes body aches chills sweats as well as change in bowel movements as well as change in bowel movements. He is scheduled for a CAT scan tomorrow at [facility]. Mild tenderness and mild swelling to left inguinal area noted on exam. No skin changes erythema or warmth. Will get comprehensive labs today. Will follow-up pending CAT scan results tomorrow. Discussed signs and symptoms to monitor for. Work note given to be out for the next 2 weeks. He plans to explore FMLA options with his employer. #Body aches chills. COVID flu RSV swab done in the office and pending. Will follow-up pending results. As above will get further workup. #Change in urination. Check UA urine culture and PSA follow-up pending results. #Change in bowel movements. Will get labs and CAT scan and follow-up pending results. Advised to schedule colonoscopy as he is due for baseline screening as well. Case discussed with collaborating physician Izzy Monteiro who reviewed the assessment and plan. Chart, medications, labs, vital signs reviewed. Dictation was accomplished with the use of [employer] voice recognition software, prone to medical [...] to next visit it any questions/concerns arise. 03/17/2024 Left inguinal pain (ICD-10 - R10.32) Michael is a 43-year-old male history of left inguinal hernia recently repaired approximately 4 months ago, vitamin D deficiency, and hyperlipidemia who presents today for urgent care visit for potential recurrence of left-sided hernia. Left inguinal hernia repaired surgically 4 months ago at [facility]. Admits that on [place] he developed an acute pain with associated warmth while he was sitting down. Since this time reports continuous pain on left side as well as heavy sensation in groin. Reports no excruciating pain and continues to produce bowel movements as well as pass flatus. At previous visit ultrasound was obtained showing no acute hernia however incidental enlargement of lymph nodes. Referral to [facility] General surgery previously made and patient provided with contact number to schedule consultation. On physical exam patient is well-appearing and in no acute distress. Vital signs within normal limits. Cardiopulmonary exam unremarkable. On abdominal exam abdomen is soft to palpation, no tenderness in all 4 quadrants. Upon palpation of left lower quadrant while having the patient forcefully cough tenderness elicited as well as a small palpable bulge. Overlying skin is nonerythematous. Reports that CT abdomen and pelvis is scheduled on April 21 through pain management, for further investigation of hernia advised benefit of assessing if imaging can be scheduled sooner. Patient understanding. At this time advised to continue to monitor symptoms and to be aware of red flag signs including worsening abdominal pain, inability to pass bowel movements, inability to pass flatus as well as systemic symptoms including fever, chest pain, shortness of breath, or intractable vomiting or diarrhea. All patient questions answered at this time. # Vitamin D insufficiency: Vitamin D level obtained 02/15/2024 at level of 23.3. Continue vitamin D3 125 mcg once daily. Will continue to monitor. # Hyperlipidemia: Lipid panel last obtained 02/15/2024 with values including cholesterol 236, triglycerides 227, HDL 36, and LDL 158. Will continue to monitor with repeat blood work. All questions have been answered to patient's satisfaction. Patient verbalized understanding of diagnosis and treatments explained. Advised to call sooner prior to next visit it any questions/concerns arise. Case discussed with collaborating physician John Monteiro who reviewed the assessment and plan. Chart, medications, labs, vital signs reviewed. Dictation was accomplished with the use of [employer] voice recognition software, which is prone to medical misidentifications and grammatical errors. This are unintentional and the practitioner does try to identify and correct these, but some could still be present. Please do not hesitate to contact practitioner for clarification. 04/07/2024 Left inguinal pain (ICD-10 - R10.32) #Left inguinal pain -status post repeat hernia repair with mesh placement in November 2023. He has had persistent pain in the area of his hernia repair since then. Symptoms have improved some with rest since his last visit. CAT scan discussed with patient and showed 24 mm x 17 mm likely seroma at left inguinal surgical site. We did discuss given his persistent pain this may need to be drained. Strongly encouraged him to follow-up with general surgery. He was pursuing second opinion at [facility] and encouraged him to continue to do so. I also encouraged him to have the CAT scan results sent to his original surgeon as well. [facility] paperwork completed today. Will put him out until May 13. In the interim hope is to get a surgical consult to discuss possible drainage of the seroma. He will follow-up with me in 2 to 3 weeks sooner with any new or worsening symptoms. #Change in bowel movements. Labs were normal and reviewed with patient. CAT scan showed suspected seroma at left inguinal surgical site. Advised to schedule colonoscopy as he is due for baseline screening as well. #Urethral stricture. He has been followed by urology. Discussed compressed bladder and thickening of the bladder wall noted on CAT scan. He plans to follow-up with urology. They have suggested surgical intervention in the past which she has deferred thus far but he may want to consider as he is worried about worsening symptoms. 45 minutes spent with patient greater than 50% in coordination of care. Case discussed with collaborating physician Izzy Monteiro who reviewed the assessment and plan. Chart, medications, labs, vital signs reviewed. Dictation was accomplished with the use of [employer] voice recognition software, prone to medical [...] to next visit it any questions/concerns arise. 04/07/2024 Change in bowel habits (ICD-10 - R19.4) #Left inguinal pain -status post repeat hernia repair with mesh placement in November 2023. He has had persistent pain in the area of his hernia repair since then. Symptoms have improved some with rest since his last visit. CAT scan discussed with patient and showed 24 mm x 17 mm likely seroma at left inguinal surgical site. We did discuss given his persistent pain this may need to be drained. Strongly encouraged him to follow-up with general surgery. He was pursuing second opinion at [facility] and encouraged him to continue to do so. I also encouraged him to have the CAT scan results sent to his original surgeon as well. [facility] paperwork completed today. Will put him out until May 13. In the interim hope is to get a surgical consult to discuss possible drainage of the seroma. He will follow-up with me in 2 to 3 weeks sooner with any new or worsening symptoms. #Change in bowel movements. Labs were normal and reviewed with patient. CAT scan showed suspected seroma at left inguinal surgical site. Advised to schedule colonoscopy as he is due for baseline screening as well. #Urethral stricture. He has been followed by urology. Discussed compressed bladder and thickening of the bladder wall noted on CAT scan. He plans to follow-up with urology. They have suggested surgical intervention in the past which she has deferred thus far but he may want to consider as he is worried about worsening symptoms. 45 minutes spent with patient greater than 50% in coordination of care. Case discussed with collaborating physician Izzy Monteiro who reviewed the assessment and plan. Chart, medications, labs, vital signs reviewed. Dictation was accomplished with the use of [employer] voice recognition software, prone to medical [...] to next visit it any questions/concerns arise. 05/04/2024 Left testicular pain (ICD-10 - N50.812) Pain is not proportionate or consistent with left inguinal seroma or recent surgery He has left testicular pain Will get an ultrasound devoted to this area Discussed possible differentials including varicocele, hydrocele, hernia This has been ongoing for several months he says Unlikely torsion He will follow-up with his primary provider next week I have provided a work note excuse For him to return to work as of May 16 Of note, some information is being carried forward from prior records for informational purposes only and is being cited so that efficiency, safety and quality of the patient's care is not compromised This note was prepared using voice recognition software and direct typing Please excuse inadvertent ophthalmologist or typing errors, or uncorrected word substitutions Although every attempt has been made by the provider to proofread this document, occasional misspellings and typographical errors may still be present Due to the previous pandemic, and the use of personal protective equipment (PPE) This may decrease voice recognition accuracy Inadvertent ophthalmologist errors may occur 05/04/2024 Left inguinal pain (ICD-10 - R10.32) Pain is not proportionate or consistent with left inguinal seroma or recent surgery He has left testicular pain Will get an ultrasound devoted to this area Discussed possible differentials including varicocele, hydrocele, hernia This has been ongoing for several months he says Unlikely torsion He will follow-up with his primary provider next week I have provided a work note excuse For him to return to work as of May 16 Of note, some information is being carried forward from prior records for informational purposes only and is being cited so that efficiency, safety and quality of the patient's care is not compromised This note was prepared using voice recognition software and direct typing Please excuse inadvertent ophthalmologist or typing errors, or uncorrected word substitutions Although every attempt has been made by the provider to proofread this document, occasional misspellings and typographical errors may still be present Due to the previous pandemic, and the use of personal protective equipment (PPE) This may decrease voice recognition accuracy Inadvertent ophthalmologist errors may occur 05/16/2024 Left testicular pain (ICD-10 - N50.812) #Left inguinal pain. Persistent since hernia repair in November 2023. There was a small seroma noted on CAT scan. He did see a specialist in [place] for second opinion. He reports that they did not suggest drainage. He will call us with their information so we may request records for review. He is requesting to return to work and feels comfortable doing so. He is not comfortable returning to the previous surgeon. #Left testicular pain. Not new and has been persistent since the procedure as well. After more activity does notice increase in symptoms. Testicular ultrasound was ordered at his appointment on 05/04/2024 which is scheduled for later this week on May 21. Advised to follow through with ultrasound imaging and follow-up pending results. Case discussed with collaborating physician Izzy Monteiro who reviewed the assessment and plan. Chart, medications, labs, vital signs reviewed. Dictation was accomplished with the use of [employer] voice recognition software, prone to medical [...] to next visit it any questions/concerns arise. 05/16/2024 Left inguinal pain (ICD-10 - R10.32) #Left inguinal pain. Persistent since hernia repair in November 2023. There was a small seroma noted on CAT scan. He did see a specialist in [place] for second opinion. He reports that they did not suggest drainage. He will call us with their information so we may request records for review. He is requesting to return to work and feels comfortable doing so. He is not comfortable returning to the previous surgeon. #Left testicular pain. Not new and has been persistent since the procedure as well. After more activity does notice increase in symptoms. Testicular ultrasound was ordered at his appointment on 05/04/2024 which is scheduled for later this week on May 21. Advised to follow through with ultrasound imaging and follow-up pending results. Case discussed with collaborating physician Izzy Monteiro who reviewed the assessment and plan. Chart, medications, labs, vital signs reviewed. Dictation was accomplished with the use of [employer] voice recognition software, prone to medical [...] to next visit it any questions/concerns arise. 07/05/2024 Left testicular pain (ICD-10 - N50.812) #Left testicular pain. Persistent left testicular pain since left inguinal hernia repair in November 2023. Reviewed recent ultrasound results with patient which does show left varicocele. I do not necessarily think this is causing his discomfort however will refer to urology for further discussion. He is now getting intermittent pain to his penis. He does have a prior history of urethral stricture which should have further follow-up as he has noticed further decrease in urinary stream. WIll get updated labs. F/u pending results. #Left inguinal pain. Persistent since left inguinal hernia repair in November 2023. Symptoms worsen after long days at work. Discussed that he will need to follow-up with surgeon to discuss further options. He did previously see another surgeon in [place] for a second opinion and they had suggested pain management versus nerve procedure to help with discomfort. Again discussed importance of following up with surgeon to discuss any other options. As above we will also refer to urology given discomfort into the testicles and penis. Case discussed with collaborating physician Izzy Monteiro who reviewed the assessment and plan. Chart, medications, labs, vital signs reviewed. Dictation was accomplished with the use of [employer] voice recognition software, prone to medical [...] to next visit it any questions/concerns arise. 07/05/2024 Stricture of male urethra, unspecified stricture type (ICD-10 - N35.919) #Left testicular pain. Persistent left testicular pain since left inguinal hernia repair in November 2023. Reviewed recent ultrasound results with patient which does show left varicocele. I do not necessarily think this is causing his discomfort however will refer to urology for further discussion. He is now getting intermittent pain to his penis. He does have a prior history of urethral stricture which should have further follow-up as he has noticed further decrease in urinary stream. WIll get updated labs. F/u pending results. #Left inguinal pain. Persistent since left inguinal hernia repair in November 2023. Symptoms worsen after long days at work. Discussed that he will need to follow-up with surgeon to discuss further options. He did previously see another surgeon in [place] for a second opinion and they had suggested pain management versus nerve procedure to help with discomfort. Again discussed importance of following up with surgeon to discuss any other options. As above we will also refer to urology given discomfort into the testicles and penis. Case discussed with collaborating physician Izzy Monteiro who reviewed the assessment and plan. Chart, medications, labs, vital signs reviewed. Dictation was accomplished with the use of [employer] voice recognition software, prone to medical [...] to next visit it any questions/concerns arise. 07/05/2024 Pain in penis (ICD-10 - N48.89) #Left testicular pain. Persistent left testicular pain since left inguinal hernia repair in November 2023. Reviewed recent ultrasound results with patient which does show left varicocele. I do not necessarily think this is causing his discomfort however will refer to urology for further discussion. He is now getting intermittent pain to his penis. He does have a prior history of urethral stricture which should have further follow-up as he has noticed further decrease in urinary stream. WIll get updated labs. F/u pending results. #Left inguinal pain. Persistent since left inguinal hernia repair in November 2023. Symptoms worsen after long days at work. Discussed that he will need to follow-up with surgeon to discuss further options. He did previously see another surgeon in [place] for a second opinion and they had suggested pain management versus nerve procedure to help with discomfort. Again discussed importance of following up with surgeon to discuss any other options. As above we will also refer to urology given discomfort into the testicles and penis. Case discussed with collaborating physician Izzy Monteiro who reviewed the assessment and plan. Chart, medications, labs, vital signs reviewed. Dictation was accomplished with the use of [employer] voice recognition software, prone to medical [...] to next visit it any questions/concerns arise. 04/07/2024 Stricture of male urethra, unspecified stricture type (ICD-10 - N35.919) #Left inguinal pain -status post repeat hernia repair with mesh placement in November 2023. He has had persistent pain in the area of his hernia repair since then. Symptoms have improved some with rest since his last visit. CAT scan discussed with patient and showed 24 mm x 17 mm likely seroma at left inguinal surgical site. We did discuss given his persistent pain this may need to be drained. Strongly encouraged him to follow-up with general surgery. He was pursuing second opinion at [facility] and encouraged him to continue to do so. I also encouraged him to have the CAT scan results sent to his original surgeon as well. [facility] paperwork completed today. Will put him out until May 13. In the interim hope is to get a surgical consult to discuss possible drainage of the seroma. He will follow-up with me in 2 to 3 weeks sooner with any new or worsening symptoms. #Change in bowel movements. Labs were normal and reviewed with patient. CAT scan showed suspected seroma at left inguinal surgical site. Advised to schedule colonoscopy as he is due for baseline screening as well. #Urethral stricture. He has been followed by urology. Discussed compressed bladder and thickening of the bladder wall noted on CAT scan. He plans to follow-up with urology. They have suggested surgical intervention in the past which she has deferred thus far but he may want to consider as he is worried about worsening symptoms. 45 minutes spent with patient greater than 50% in coordination of care. Case discussed with collaborating physician Izzy Monteiro who reviewed the assessment and plan. Chart, medications, labs, vital signs reviewed. Dictation was accomplished with the use of [employer] voice recognition software, prone to medical [...] to next visit it any questions/concerns arise. 03/29/2024 Chills (ICD-10 - R68.83) #Left inguinal pain -status post repeat hernia repair with mesh placement in November 2023. He has had persistent pain in the area of his hernia repair since then. In the past week symptoms have worsened and now also notes body aches chills sweats as well as change in bowel movements as well as change in bowel movements. He is scheduled for a CAT scan tomorrow at [facility] [place]. Mild tenderness and mild swelling to left inguinal area noted on exam. No skin changes erythema or warmth. Will get comprehensive labs today. Will follow-up pending CAT scan results tomorrow. Discussed signs and symptoms to monitor for. Work note given to be out for the next 2 weeks. He plans to explore FMLA options with his employer. #Body aches chills. COVID flu RSV swab done in the office and pending. Will follow-up pending results. As above will get further workup. #Change in urination. Check UA urine culture and PSA follow-up pending results. #Change in bowel movements. Will get labs and CAT scan and follow-up pending results. Advised to schedule colonoscopy as he is due for baseline screening as well. Case discussed with collaborating physician Izzy Monteiro who reviewed the assessment and plan. Chart, medications, labs, vital signs reviewed. Dictation was accomplished with the use of [employer] voice recognition software, prone to medical [...] to next visit it any questions/concerns arise. 03/17/2024 Vitamin D insufficiency (ICD-10 - E55.9) Michael is a 43-year-old male history of left inguinal hernia recently repaired approximately 4 months ago, vitamin D deficiency, and hyperlipidemia who presents today for urgent care visit for potential recurrence of left-sided hernia. Left inguinal hernia repaired surgically 4 months ago at [facility]. Admits that on he developed an acute pain with associated warmth while he was sitting down. Since this time reports continuous pain on left side as well as heavy sensation in groin. Reports no excruciating pain and continues to produce bowel movements as well as pass flatus. At previous visit ultrasound was obtained showing no acute hernia however incidental enlargement of lymph nodes. Referral to [facility] General surgery previously made and patient provided with contact number to schedule consultation. On physical exam patient is well-appearing and in no acute distress. Vital signs within normal limits. Cardiopulmonary exam unremarkable. On abdominal exam abdomen is soft to palpation, no tenderness in all 4 quadrants. Upon palpation of left lower quadrant while having the patient forcefully cough tenderness elicited as well as a small palpable bulge. Overlying skin is nonerythematous. Reports that CT abdomen and pelvis is scheduled on April 21 through pain management, for further investigation of hernia advised benefit of assessing if imaging can be scheduled sooner. Patient understanding. At this time advised to continue to monitor symptoms and to be aware of red flag signs including worsening abdominal pain, inability to pass bowel movements, inability to pass flatus as well as systemic symptoms including fever, chest pain, shortness of breath, or intractable vomiting or diarrhea. All patient questions answered at this time. # Vitamin D insufficiency: Vitamin D level obtained 02/15/2024 at level of 23.3. Continue vitamin D3 125 mcg once daily. Will continue to monitor. # Hyperlipidemia: Lipid panel last obtained 02/15/2024 with values including cholesterol 236, triglycerides 227, HDL 36, and LDL 158. Will continue to monitor with repeat blood work. All questions have been answered to patient's satisfaction. Patient verbalized understanding of diagnosis and treatments explained. Advised to call sooner prior to next visit it any questions/concerns arise. Case discussed with collaborating physician John Monteiro who reviewed the assessment and plan. Chart, medications, labs, vital signs reviewed. Dictation was accomplished with the use of [employer] voice recognition software, which is prone to medical misidentifications and grammatical errors. This are unintentional and the practitioner does try to identify and correct these, but some could still be present. Please do not hesitate to contact practitioner for clarification. 02/17/2024 Elevated lipids (ICD-10 - E78.5) #Left [...] heart disease. Case discussed with collaborating physician Izyz Monteiro who reviewed the assessment and plan. Chart, medications, labs, vital signs reviewed. Dictation was accomplished with the use of [employer] voice recognition software, prone to medical [...] log exercise and discussed fitness Apps like [employer] which can help keep log off calories [...] Dictation was accomplished with the use of [employer] voice recognition software, prone to medical [...] Dictation was accomplished with the use of [employer] voice recognition software, prone to medical [...] Dictation was accomplished with the use of [employer] voice recognition software, prone to medical [...] Dictation was accomplished with the use of [employer] voice recognition software, prone to medical [...] to next visit it any questions/concerns arise. 03/29/2024 Burning with urination (ICD-10 - R30.0) #Left inguinal pain -status post repeat hernia repair with mesh placement in November 2023. He has had persistent pain in the area of his hernia repair since then. In the past week symptoms have worsened and now also notes body aches chills sweats as well as change in bowel movements as well as change in bowel movements. He is scheduled for a CAT scan tomorrow at [facility]. Mild tenderness and mild swelling to left inguinal area noted on exam. No skin changes erythema or warmth. Will get comprehensive labs today. Will follow-up pending CAT scan results tomorrow. Discussed signs and symptoms to monitor for. Work note given to be out for the next 2 weeks. He plans to explore FMLA options with his employer. #Body aches chills. COVID flu RSV swab done in the office and pending. Will follow-up pending results. As above will get further workup. #Change in urination. Check UA urine culture and PSA follow-up pending results. #Change in bowel movements. Will get labs and CAT scan and follow-up pending results. Advised to schedule colonoscopy as he is due for baseline screening as well. Case discussed with collaborating physician Izzy Monteiro who reviewed the assessment and plan. Chart, medications, labs, vital signs reviewed. Dictation was accomplished with the use of [employer] voice recognition software, prone to medical [...] to next visit it any questions/concerns arise. 03/17/2024 Hyperlipidemia, mixed (ICD-10 - E78.2) Michael is a 43-year-old male history of left inguinal hernia recently repaired approximately 4 months ago, vitamin D deficiency, and hyperlipidemia who presents today for urgent care visit for potential recurrence of left-sided hernia. Left inguinal hernia repaired surgically 4 months ago at [facility]. Admits that on [place] ' he developed an acute pain with associated warmth while he was sitting down. Since this time reports continuous pain on left side as well as heavy sensation in groin. Reports no excruciating pain and continues to produce bowel movements as well as pass flatus. At previous visit ultrasound was obtained showing no acute hernia however incidental enlargement of lymph nodes. Referral to [facility] General surgery previously made and patient provided with contact number to schedule consultation. On physical exam patient is well-appearing and in no acute distress. Vital signs within normal limits. Cardiopulmonary exam unremarkable. On abdominal exam abdomen is soft to palpation, no tenderness in all 4 quadrants. Upon palpation of left lower quadrant while having the patient forcefully cough tenderness elicited as well as a small palpable bulge. Overlying skin is nonerythematous. Reports that CT abdomen and pelvis is scheduled on April 21 through pain management, for further investigation of hernia advised benefit of assessing if imaging can be scheduled sooner. Patient understanding. At this time advised to continue to monitor symptoms and to be aware of red flag signs including worsening abdominal pain, inability to pass bowel movements, inability to pass flatus as well as systemic symptoms including fever, chest pain, shortness of breath, or intractable vomiting or diarrhea. All patient questions answered at this time. # Vitamin D insufficiency: Vitamin D level obtained 02/15/2024 at level of 23.3. Continue vitamin D3 125 mcg once daily. Will continue to monitor. # Hyperlipidemia: Lipid panel last obtained 02/15/2024 with values including cholesterol 236, triglycerides 227, HDL 36, and LDL 158. Will continue to monitor with repeat blood work. All questions have been answered to patient's satisfaction. Patient verbalized understanding of diagnosis and treatments explained. Advised to call sooner prior to next visit it any questions/concerns arise. Case discussed with collaborating physician John Monteiro who reviewed the assessment and plan. Chart, medications, labs, vital signs reviewed. Dictation was accomplished with the use of [employer] voice recognition software, which is prone to medical misidentifications and grammatical errors. This are unintentional and the practitioner does try to identify and correct these, but some could still be present. Please do not hesitate to contact practitioner for clarification. 07/05/2024 Left inguinal pain (ICD-10 - R10.32) #Left testicular pain. Persistent left testicular pain since left inguinal hernia repair in November 2023. Reviewed recent ultrasound results with patient which does show left varicocele. I do not necessarily think this is causing his discomfort however will refer to urology for further discussion. He is now getting intermittent pain to his penis. He does have a prior history of urethral stricture which should have further follow-up as he has noticed further decrease in urinary stream. WIll get updated labs. F/u pending results. #Left inguinal pain. Persistent since left inguinal hernia repair in November 2023. Symptoms worsen after long days at work. Discussed that he will need to follow-up with surgeon to discuss further options. He did previously see another surgeon in [place] for a second opinion and they had suggested pain management versus nerve procedure to help with discomfort. Again discussed importance of following up with surgeon to discuss any other options. As above we will also refer to urology given discomfort into the testicles and penis. Case discussed with collaborating physician Izzy Monteiro who reviewed the assessment and plan. Chart, medications, labs, vital signs reviewed. Dictation was accomplished with the use of [employer] voice recognition software, prone to medical [...] to next visit it any questions/concerns arise. 03/29/2024 Prostate cancer screening (ICD-10 - Z12.5) #Left inguinal pain -status post repeat hernia repair with mesh placement in November 2023. He has had persistent pain in the area of his hernia repair since then. In the past week symptoms have worsened and now also notes body aches chills sweats as well as change in bowel movements as well as change in bowel movements. He is scheduled for a CAT scan tomorrow at [facility]. Mild tenderness and mild swelling to left inguinal area noted on exam. No skin changes erythema or warmth. Will get comprehensive labs today. Will follow-up pending CAT scan results tomorrow. Discussed signs and symptoms to monitor for. Work note given to be out for the next 2 weeks. He plans to explore FMLA options with his employer. #Body aches chills. COVID flu RSV swab done in the office and pending. Will follow-up pending results. As above will get further workup. #Change in urination. Check UA urine culture and PSA follow-up pending results. #Change in bowel movements. Will get labs and CAT scan and follow-up pending results. Advised to schedule colonoscopy as he is due for baseline screening as well. Case discussed with collaborating physician Izzy Monteiro who reviewed the assessment and plan. Chart, medications, labs, vital signs reviewed. Dictation was accomplished with the use of [employer] voice recognition software, prone to medical [...] Dictation was accomplished with the use of [employer] voice recognition software, prone to medical [...] Dictation was accomplished with the use of [employer] voice recognition software, prone to medical [...] to next visit it any questions/concerns arise. 03/29/2024 Change in bowel habits (ICD-10 - R19.4) #Left inguinal pain -status post repeat hernia repair with mesh placement in November 2023. He has had persistent pain in the area of his hernia repair since then. In the past week symptoms have worsened and now also notes body aches chills sweats as well as change in bowel movements as well as change in bowel movements. He is scheduled for a CAT scan tomorrow at [facility]. Mild tenderness and mild swelling to left inguinal area noted on exam. No skin changes erythema or warmth. Will get comprehensive labs today. Will follow-up pending CAT scan results tomorrow. Discussed signs and symptoms to monitor for. Work note given to be out for the next 2 weeks. He plans to explore FMLA options with his employer. #Body aches chills. COVID flu RSV swab done in the office and pending. Will follow-up pending results. As above will get further workup. #Change in urination. Check UA urine culture and PSA follow-up pending results. #Change in bowel movements. Will get labs and CAT scan and follow-up pending results. Advised to schedule colonoscopy as he is due for baseline screening as well. Case discussed with collaborating physician Izzy Monteiro who reviewed the assessment and plan. Chart, medications, labs, vital signs reviewed. Dictation was accomplished with the use of [employer] voice recognition software, prone to medical [...] Dictation was accomplished with the use of [employer] voice recognition software, prone to medical [...] Dictation was accomplished with the use of [employer] voice recognition software, prone to medical [...] Dictation was accomplished with the use of [employer] voice recognition software, prone to medical [...] Dictation was accomplished with the use of [employer] voice recognition software, prone to medical [...] TREATMENT Pending Test Test Name Order Date ESR 03/29/2024 Ultrasound : Testicular 05/04/2024 25OH VITAMIN D 02/15/2024 BASIC METABOLIC PANEL 07/05/2024 COMPREHENSIVE METABOLIC PANEL 10/22/2023 COMPREHENSIVE METABOLIC PANEL 02/15/2024 HEMOGLOBIN A1C 02/15/2024 HEMOGLOBIN A1C 10/22/2023 LIPID PANEL 10/22/2023 LIPID PANEL 02/15/2024 TSH 02/15/2024 URINALYSIS W/REFLEX CULTURE 02/15/2024 URINALYSIS W/REFLEX CULTURE 07/05/2024 CBC with Differential 02/15/2024 URINE CULTURE 03/29/2024 UA WITH CULTURE IF INDICATED 03/29/2024 LIPID PANEL, STANDARD 02/17/2024 COMPREHENSIVE METABOLIC PANEL 03/29/2024 CBC (INCLUDES DIFF/PLT) 03/29/2024 CBC (INCLUDES DIFF/PLT) 07/05/2024 CBC (INCLUDES DIFF/PLT) 10/22/2023 URINALYSIS, COMPLETE 10/22/2023 PSA (FREE AND TOTAL) 03/29/2024 TSH 10/22/2023 VITAMIN D,25-OH,TOTAL,IA 02/17/2024 VITAMIN D, 1,25 DIHYDROXY LC/MS/MS 10/21 Insurance Providers Payer Name Payer Address Payer Phone Subscriber Number Group Number Insured Name Patient Relationship to Insured Coverage Start Date Coverage End Date [facility] [address] [place] [address] [phone] [id number] Michael Mckeon Self - patient is the insured MEDICAL (GENERAL) HISTORY Surgical History Surgery Date(Month/Year) splenectomy hernia repair left inguinal with mesh 11/20/2023
--- OUTSIDE RECORDS SUMMARY | 2024-07-13 11:00 | XMS_ITS ---
Author Organization [facility] Address [address] [place] [address] Care Team Providers Care Diesel Maintenance Electrician Name Role Phone Morena Jarvis Unavailable [phone] REASON FOR VISIT urology referral Encounters Encounter Location Date Provider Diagnosis [address] [place] [id number] 07/05/2024 Morena Jarvis PLAN OF TREATMENT No Information Progress Notes * Mack MCKEONOB: 9 (44 yo M)Acc No.[id number]:07/05/2024 Patient:??Michael MCKEON :1980?Age:44 Y?Sex:Ethel naranjo Address:[address] [place] [address] * true * Date:??
--- OUTSIDE RECORDS SUMMARY | 2024-07-13 11:00 | XMS_ITS | Data Portability ---
Author Organization [facility], [address] Address [address] [place] [address] Assessment No assessment recorded. Plan of Treatment Reminders Order Date Submit Date Provider Last Modified By Organization Details Last Modified Time Details Appointments None record ed. Lab None record ed. Referral None record ed. Procedures None record ed. Surgeries None record ed. Imaging None record ed. Medication Orders None record ed. Patient TargetsNo targets recorded. Patient InstructionsNo instructions recorded. Reason for Referral None Reported. Procedures Surgical History Date Name Laterality Status Provider Name and Address Organization Details Recorded Time OC-UDS Send Out Template NON DOT completed Jenn Andersen [facility] 05/12/2022 18:30:15 Imaging Results None recorded. Procedure Notes None recorded. Medical Equipment None Reported. Medications Name Sig Start Date Stop Date Status Note LastModified by Organization Details LastModified Time azithromycin 250 mg tablet TAKE 2 TABLETS ON FIRST DAY , THEN 1 TABLET DAILY FOR 4 DAYS active Not Available Not Available No t Available prednisone 20 mg tablet TAKE 1 TABLET 2 TIMES A DAY FOR 5 DAYS THEN 1 DAILY FOR 5 DAYS active Not Available Not Available No t Available baclofen 10 mg tablet TAKE 1 TABLET BY MOUTH DAILY AT BEDTIME FOR 7 DAYS active Not Available Not Available N ot Available ID NOW COVID-19 Test Kit TEST DIRECTED TODAY active Not Available Not Available No t Available BinaxNOW COVID-19 Ag Self Test kit FOLLOW INSTRUCTION S INCLUDED WITH THE PACKAGE. active Not Available Not Available No t Available Vitals None Recorded Social History None recorded. Functional Status None recorded. Mental Status None recorded. Family History Nothing Reported. Medical History No medical history recorded. Past Encounters Encounter ID Performer Location Encounter Start Date Encounter Closed Date Diagnosis/Indication Diagnosis SNOMED-CT Code Diagnosis ICD10 Code Diagnosis Note [id number] [address] [facility] [address] 11/16/2016 09:17:20 11/16/2016 09:53:48 [id number] [address] [facility] [address] 06/01/2017 17:51:57 06/01/2017 18:22:13 [id number] [address] [facility] [place] [address] 05/02/2018 09:30:57 05/02/2018 10:12:18 [id number] [address] [facility] [address] 07/04/2019 09:36:36 07/04/2019 10:53:48 [id number] [address] [facility] [place] [address] 09/08/2019 10:46:47 09/08/2019 11:28:22 [id number] [address] [facility] [place] [address] 11/30/2017 16:04:16 11/30/2017 18:41:06 [id number] [address] [facility] [place] [address] 05/11/2020 15:44:31 05/11/2020 17:28:55 [id number] [address] [place] [address] 05/13/2021 11:07:58 05/13/2021 13:02:47 [id number] [address] [facility] [place] [address] 08/26/2017 17:48:06 08/26/2017 18:50:32 [id number] Marta Tavares [place] [address] [facility] [place] [address] 05/12/2022 17:50:50 05/12/2022 18:14:38 History and physical examination, occupation [id number] Z02.1 Health Concerns Section Related Observation LastModified by Organization Detai ls LastModified Time None Recorded Concern Status LastModified by Organization Details LastModified Time None Recorded Advance Directives Directive None Recorded Payers Encounter Date Sequence Insurance Name Policy Number Policy Martines Covered Member ID Martines Member ID Guarantor Name 07/04/2019 1 DARYL: [facility] (O) [id number] Michael Mckeon [id number] Michael Mckeon 05/12/2022 [employer] LOCAL 6 Ri gabrielle Mckeon
--- OUTSIDE RECORDS SUMMARY | 2024-07-13 11:00 | XMS_ITS ---
Author Organization [facility] Address [address] [place] [address] Care Team Providers Care Health Information Technician Name Role Phone Morena Jarvis Unavailable [phone] ALLERGIES No Known Allergies REASON FOR REFERRAL Reason [facility]; testicular pain; pain in penis; hx of urethra stricture Diagnosis 1 Left testicular pain (N50.812) Diagnosis 2 Stricture of male ur ethra, unspecified 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) Diagnosis 3 Pain in penis (N48.8 9) Referral Organization [place] [address] Referring Provider First Name Morena Referring Provider Last Name Simona Referring Provider Speciality Internal M edicine Referred Provider Specialty Urology General Notes [address] Spfmarianna vargas , (p) [phone], (f) [phone] Clinical Notes Debbi Harden 01:23:35 PM > referral faxed with Sukhjinder jiang Redena 07/12/2024 02:44:18 PM > I called the office, and they informed me that they have left voicemails for the patient but have not received a callback. Referral Priority Routine REASON FOR VISIT Patient seen in office for urgent visit, Pt c/o left sided pain causing dull ache and stabbing pains. Pt has h/o hernia. SOCIAL HISTORY Tobacco Use: Social History Observation Description Date Details (start date - stop date) Never Smoker NA - NA Sex Assigned At : Social History Observation Description Sex Assigned At Unknown Tobacco Use/Smoking Question Answer Notes Are you a nonsmoker Section Notes: rare cigar use alcohol rarely marijuana occ VITAL SIGNS Blood pressure systolic 128 mm Hg 07/06/19 25 Blood pressure diastolic 72 mm Hg 025 Heart Rate 66 /min 07/05/2024 Height 70 in 07/05/2024 Weight 226 lbs 07/05/2024 BMI 32.42 kg/m2 07/05/2024 Oximetry 98 % 07/05/2024 Encounters Encounter Location Date Provider Diagnosis [address] [facility] [address] [place] [address] 07/05/2024 Morena Svrcek Left testicular pain N50.812 ; Stricture of male urethra, unspecified stricture type N35.919 ; Pain in penis N48.89 and Left inguinal pain R10.32 ASSESSMENTS Encounter Date Diagnosis Assessment Notes Treatment Notes Treatment Clinical Notes Section Notes 07/05/2024 Left testicular pain (ICD-10 - N50.812) [...] He did previously see another surgeon in [place] for a second opinion and they had [...] Dictation was accomplished with the use of [employer] voice recognition software, prone to medical misidentifications [...] He did previously see another surgeon in [place] for a second opinion and they had [...] Dictation was accomplished with the use of [employer] voice recognition software, prone to medical misidentifications [...] He did previously see another surgeon in [place] for a second opinion and they had [...] Dictation was accomplished with the use of [employer] voice recognition software, prone to medical misidentifications [...] visit it any questions/concerns arise. 07/05/2024 Left inguinal pain (ICD-10 - R10.32) [...] He did previously see another surgeon in [place] for a second opinion and they had [...] Dictation was accomplished with the use of [employer] voice recognition software, prone to medical misidentifications [...] TREATMENT Pending Test Test Name Order Date BASIC METABOLIC PANEL 07/05/2024 URINALYSIS W/REFLEX CULTURE 07/05/2024 CBC (INCLUDES DIFF/PLT) 07/05/2024 Referrals Referral Date Details [facility]; testicular pain; pain in penis; hx of urethra stricture Progress Notes * Nieves MCKEONeDOB: 9 (44 yo M)Acc No.[id number]:07/05/2024 Progress Notes Patient:??Michael MCKEON Provider:??Morena Jarvis PA-C :1980?Age:44 Y?Sex:Ethel le Date:07/05/2024 Address:[address] [place], [place] [id number] Subjective: * Chief Complaints: * ?1. Patient seen in off [place] for urgent visit, Pt c/o left sided pain causing dull ache and stabbing pains. Pt has h/o hernia.. * HPI: ?Constitutional:? Michael today is a 44-year-old male here today in follow-up. He continues with left inguinal pain, status post hernia repair with mesh replacement in November 2023 at [facility]. See previous office visit notes for details. Since his last visit with me he did go to [place] to [facility] [place] second opinion. He reports he was not happy with options that they offered which included pain management versus nerve block. He has continued with some l left testicular discomfort ever since the procedure as well. He is now noticing intermittent pain to his penis as well. Symptoms are worse after a day of work. He did have the testicular US which showed small bilaterl hydroceles and left varicocele. He also has hx of urethral narrowing and has been followed by urology. He has not had any recent follow up. He does note some slower urination. No pain, burning or frequency. No fever. * ROS:?All Other Systems:?Review of Systems (ROS)??All others negative except those mentioned in HPI.? * Medical History:??Medical Hi story Verified. * Surgical History:??splenecto my , hernia repair left inguinal with mesh 11/20/2023. * Hospitalization/Major Diagno stic Procedure:??Denies Past Hospitalization. * Family History:??Father: aiyana guzman.??Mother: alive.??2 brother(s) , 1 sister(s) - healthy. 2 son(s) , 1 daughter(s) - healthy. .?? mother-diabetes, HTN, high cholesterol. * Social History:?Tobacco Use:??Tobacco Use/Smoking??Are you a??nonsmoker.?rare cigar use ???alcohol rarely ???marijuana occ. * Medications:??None * Allergies:??N.K.D.A. Objective: * Vitals:??HR:66/min, BP:128/7 2mm Hg, Wt:226lbs, BMI:32.42Index, Ht: 70 in, Oxygen sat %:98%. * Physical Examination:?General: Well appearing, well nourished, age appropriate in no acute distress. Speaking in full, clear sentences. ?SKIN: Warm, dry intact. No rashes/lesions. ?HEENT: Normocephalic atraumatic. ?LUNGS: Non labored. ?CARDIAC: Regular rate and rhythm ?Abd: tenderness left lower abdomen/inguinal area with mild fullness at site of hernia repair ?: No testicular swelling or masses. mild tenderness. + left varicocele noted ?Neuro: CN II-XI grossly intact. Speaking in full sentences. Hearing intact. Assessment: * Assessment: 1.??Left testicular pain - N 50.812 (Primary)??2.??Stricture of male urethra, unspecified stricture type - N35.919??3.??Pain in penis - N48.89??4.??Left inguinal pain - R10.32?? #Left testicular pain. Persi stent left testicular pain since left inguinal hernia [...] work. Discussed that he will need to follow- up with surgeon to discuss further options. He did previously see another surgeon in [place] for a second opinion and they had [...] Dictation was accomplished with the use of [employer] voice recognition software, prone to medical misidentifications [...] it any questions/concerns arise. Plan: * Treatment: 2.??Stricture of male urethr a, unspecified stricture type? Referral To:Urology ?Reason:[facility]; testicular pain; pain in penis; hx of urethra stricture 3.??Pain in penis? Referral To:Urology ?Reason:[facility]; testicular pain; pain in penis; hx of urethra stricture 4.??Left inguinal pain?LAB: BASIC METABOLIC PANEL ?LAB: URINALYSIS W/REFLEX CULTURE ?LAB: CBC (INCLUDES DIFF/PLT) Care Plan: * Problems:?? * Images: Billing Information: * Visit Code:?? 56663 Office Visit, Est Pt., Level 4. Modifiers: SA * Procedure Codes:?? Care Plan Details* * Sign off status: Completed true * Provider:??Morena Jarvis PA-C Date:??06/15 History and Physical Notes * HPI (History of Present Illness) Category Sub-Category Detail Notes Category Not es Iram Rodriguez today is a 44-year-old male here today in follow-up. He continues with left inguinal pain, status post hernia repair with mesh replacement in November 2023 at [facility]. See previous office visit notes for details. Since his last visit with me he did go to [place] to [facility] for second opinion. He reports he was not happy with options that they offered which included pain management versus nerve block. He has continued with some l left testicular discomfort ever since the procedure as well. He is now noticing intermittent pain to his penis as well. Symptoms are worse after a day of work. He did have the testicular US which showed small bilaterl hydroceles and left varicocele. He also has hx of urethral narrowing and has been followed by urology. He has not had any recent follow up. He does note some slower urination. No pain, burning or frequency. No fever. Physical Examination Category Sub-Category Detail Notes Section Note s General: Well appearing, well nourished, age appropriate in no acute distress. Speaking in full, clear sentences. SKIN: Warm, dry intact. No rashes/lesions. HEENT: Normocephalic atraumatic. LUNGS: Non labored. CARDIAC: Regular rate and rhythm Abd: tenderness left lower abdomen/inguinal area with mild fullness at site of hernia repair : No testicular swelling or masses. mild tenderness. + left varicocele noted Neuro: CN II-XI grossly intact. Speaking in full sentences. Hearing intact. Consultation Request Notes Referral Date Referring Provider Referred Provider Not janice 07/05/2024 Morena Jarvis [facility] U[facility]; testicular pain; pain in penis; hx of urethra stricture
== END 2024-07-13 10:21 | disposition home or self-care (01) ==
LOC: HO.HGS 10:01
PROVIDERS: PCP Physician Assistant; Visit Provider Surgery
DX: R10.32 Left lower quadrant pain (principal)
CPT/HCPCS: 99213

== ENCOUNTER 2024-07-13 10:01 | Outpatient (REF) | payer BC, SELFPAY ==
[2024-07-13 11:34] LABS: Blood Urea Nitrogen 10 mg/dL (9-16); Estimated Glomerular Filt Rate > 60
--- OUTSIDE RECORDS SUMMARY | 2024-07-13 11:47 | XMS_ITS | Clinical Summary ---
Author Organization [address] Address [address] [place] [address] Phone Care Team Providers Care Traveling Secretary Name Role Phone Morena Jarvis Primary Care Provider [phone] Allergies Active Allergy Reactions Criticality Noted Date [...] Department Care Team Description 04/21/2024 Telephone Gastroenterology [facility] [address] [facility] 175 [facility] [address] [place] [address] Cuca Morrell MD SPECIAL PROCEDURE [...] patient's age to complete this topic Insurance [facility] Care Teams Traveling Secretary Relationship Specialty Start Date End Date Morena Jarvis PA [address] [place] [id number] PCP - General 03/29/24
== END 2024-07-13 10:02 | disposition home or self-care (01) ==
LOC: HO.LAB 10:01
PROVIDERS: PCP Physician Assistant; Visit Provider Surgery
DX: R10.32 Left lower quadrant pain (principal)
CPT/HCPCS: 36415; 82565; 84520

== ENCOUNTER 2024-08-16 13:36 | Outpatient (REF) | payer BC, SELFPAY ==
--- NOTE | ~2024-08-16 | CT_ITS ---
EXAMINATION: CT PELVIS WITH CONTRAST CLINICAL INFORMATION: Left inguinal pain, prior hernia repair COMPARISON: March 30, 2024 TECHNIQUE: Helical scanning was performed with submillimeter collimation through the pelvis with the use of oral contrast and during bolus intravenous injection of 85 mL of Omnipaque 350 intravenous contrast. Sagittal and coronal multiplanar 2-D reconstructions were obtained. This CT examination was performed using dose optimization techniques as appropriate, variously including the following: *Automated exposure control *Adjustment of mA and/or kV according to patient size (this includes techniques or standardized protocols for targeted exams where dose is matched to indication/reason for exam; i.e. extremities or head) *Use of iterative reconstruction technique DLP: 275 mGY*cm FINDINGS: PELVIS: Again seen is a left inguinal fluid attenuating lesion deep to the anterior wall musculature on the left, lateral to rectus abdominous muscle, superficial to the external iliac vessels. It measures 2.3 x 1.4 x 2.3 cm, previously 2.5 x 1.3 x 1.8 cm (CC by AP by transverse). There is no evidence of recurrent hernia. There are a few scattered pseudodiverticula in the sigmoid colon without evidence of inflammation. Visualized bowel is otherwise unremarkable. There is no ascites. The bladder is unremarkable. There is no adenopathy. OSSEOUS STRUCTURES: There is trace vacuum phenomenon in the lower SI joints. Moderate degenerative disc disease at L3-[address]/CT pelvis w IV con IMPRESSION: Persistent fluid attenuating lesion in the left inguinal region deep to the abdominal wall musculature is likely a bland fluid collection/seroma. There is no evidence of a recurrent or new hernia. Electronically signed by: Sylvain Greenwood MD 08/16/2024 05:42 PM EDT
[2024-08-16] MEDS: iohexoL 350 MG/ML 100 ML INFUS..BTL IV (14:19)
--- OUTSIDE RECORDS SUMMARY | 2024-08-16 15:17 | XMS_ITS | Data Portability ---
Author Organization [facility], [address] Address [address] [place] [address] Assessment No assessment recorded. Plan of Treatment [...] Out Template NON DOT completed Jenn Andersen [facility] [employer] 05/12/2022 18:30:15 Imaging Results None recorded. Procedure [...] SNOMED-CT Code Diagnosis ICD10 Code Diagnosis Note [id number] [address] [place] [address] 11/16/2016 09:17:20 11/16/2016 09:53:48 [id number] [address] [place] [address] 06/01/2017 17:51:57 06/01/2017 18:22:13 [id number] [address] [place] [facility] [place] [address] 05/02/2018 09:30:57 05/02/2018 10:12:18 [id number] [address] [place] [address] 07/04/2019 09:36:36 07/04/2019 10:53:48 [id number] [address] [facility] [place] [address] 09/08/2019 10:46:47 09/08/2019 11:28:22 [id number] [address] [place] [address] 11/30/2017 16:04:16 11/30/2017 18:41:06 [id number] [address] [place] [address] 05/11/2020 15:44:31 05/11/2020 17:28:55 [id number] [address] [facility] [place] [address] 05/13/2021 11:07:58 05/13/2021 13:02:47 [id number] [address] [facility] [place] [address] 08/26/2017 17:48:06 08/26/2017 18:50:32 [id number] Marta Tavares MD [address] [facility] [place] [address] 05/12/2022 17:50:50 05/12/2022 18:14:38 History and physical examination, occupation [id number] Z02.1 Health Concerns Section Related Observation LastModified by Organization Detai ls LastModified Time None Recorded Concern Status LastModified by Organization Details LastModified Time None Recorded Advance Directives Directive None Recorded Payers Insurance Date Sequence Insurance Name Policy Number Policy Martines Covered Member ID Martines Member ID Guarantor Name 05/12/2022 1 DARYL: [facility] (O) [id number] Michael Mckeon [id number] Michael Mckeon 05/12/2022 [employer] LOCAL 6 Ri gabrielle Mckeon
== END 2024-08-16 13:37 | disposition home or self-care (01) ==
LOC: HO.CT 13:36
PROVIDERS: PCP Physician Assistant; Visit Provider Surgery
DX: R10.32 Left lower quadrant pain (principal)
CPT/HCPCS: 72193; Q9967

== ENCOUNTER → 2024-08-16 13:38 | Outpatient (BNV) | payer BC, SELFPAY | PROVIDERS: PCP Physician Assistant; Visit Provider Radiology Diagnostic Radiology | DX: K40.90 Unilateral inguinal hernia, without obstruction or gangrene, not specified as recurrent (principal) | CPT/HCPCS: 72193 ==

== ENCOUNTER 2024-08-31 11:29 | Outpatient (AMB) | payer BC, SELFPAY ==
--- NOTE | 2024-08-31 11:37 | MHC.OFFVIS ---
Vital Signs 08/31/24 11:40 Height 5 ft 10 in Weight 226 lb BMI 32.4 BP 141/73 H Blood Pressure Location Rt brachial Position Sitting Pulse 69 Intake Visit Reasons: CT scan results, following hernia Intake Note: Patient scheduled for today to discuss pelvis CT scan from - results. Patient c/o: reports no changes in medical hx since last visit. 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 Fraser last December,. He says he continues to have this sharp pain in the left groin radiating to the left testicle especially with movement. He says he is able to do exercises about 2 years now because of the pain I had sent him for a CAT scan because of this persistent problem. [facility] Medical History Fluid collection at surgical site Left inguinal hernia (11/20/23) Surgical History History of surgery Hx of splenectomy Hx of hernia repair Social History Are you a primary residential care facility manager to a significant other at home: No Do you presently have visiting nurse or other home services: No Alcohol intake: current Alcohol intake frequency: holidays/special occasions only Patient Tobacco Use Status: Never used Tobacco Review of Systems Const Denies chills and Denies fever(s) Card Denies chest pain, Denies dyspnea and Denies dyspnea on exertion Resp Denies cough, Denies dyspnea and Denies dyspnea on exertion GI Denies hematochezia and Denies change in bowel habits Denies hematuria and Denies difficulty urinating Musc Denies back pain and Denies limited range of motion Neuro Denies focal weakness and Denies convulsions Psych Denies depression and Denies mood swings Physical Exam Vital Signs: Last Vital Signs Pulse 69 08/31/24 11:40 BP 141/73 H 08/31/24 11:40 BMI result Body Mass Index 32.4 Const General: comfortable and no acute distress Resp Effort & Inspection: normal respiratory effort Cardio Rate: regular rate GI Other: No palpable recurrent hernia on the left groin Assessment & Plan Assessment & Plan (1) Fluid collection at surgical site: Code(s): T88.8XXA - Other specified complications of surgical and medical care, not elsewhere classified, initial encounter Category: Medical Plan: I he had his CAT scan and this does show a 2.5 cm fluid collection in the inguinal canal to the anterior wall musculature on the left side. This is likely a seroma. I did explain to him that we can send him to the IR specialist to have this aspirated. This may help with this postop pain although there is no guarantee that this will resolve his chronic pain issue He is agreeable to this. I will order for him to have this aspiration done under IR. I will see him in the office after that. Orders: Orders US guided fine needle asp 08/31/24 T88.8XXA - Other specified complications of surgical and medical care, not elsewhere classified, initial encounter Coding Level of Care Code Est Pt Level 3 (64041) Diagnoses Fluid collection at surgical site T88.8XXA
[2024-08-31 11:40] VITALS: BP 141/73; PULSE 69; BMI 32.4
--- OUTSIDE RECORDS SUMMARY | 2024-08-31 13:25 | XMS_ITS | Data Portability ---
Author Organization [facility], [address] Address [address] [place] [address] Assessment No assessment recorded. Plan of Treatment [...] Out Template NON DOT completed Jenn Andersen [facility] 05/12/2022 18:30:15 Imaging Results None recorded. Procedure [...] SNOMED-CT Code Diagnosis ICD10 Code Diagnosis Note [id number] [address] [place] [address] 11/16/2016 09:17:20 11/16/2016 09:53:48 [id number] [address] [place] [address] 06/01/2017 17:51:57 06/01/2017 18:22:13 [id number] [address] [facility] [place] [address] 05/02/2018 09:30:57 05/02/2018 10:12:18 [id number] [address] [place] [address] 07/04/2019 09:36:36 07/04/2019 10:53:48 [id number] [address] [facility] [place] [address] 09/08/2019 10:46:47 09/08/2019 11:28:22 [id number] [address] [place] [address] 11/30/2017 16:04:16 11/30/2017 18:41:06 [id number] [address] [place] [address] 05/11/2020 15:44:31 05/11/2020 17:28:55 [id number] [address] [place] [address] 05/13/2021 11:07:58 05/13/2021 13:02:47 [id number] [address] [facility] [place] [address] 08/26/2017 17:48:06 08/26/2017 18:50:32 [id number] Marta Tavares MD [address] [place] [address] 05/12/2022 17:50:50 05/12/2022 18:14:38 History and physical examination, occupation [id number] Z02.1 Health Concerns Section Related Observation LastModified by Organization Detai ls LastModified Time None Recorded Concern Status LastModified by Organization Details LastModified Time None Recorded Advance Directives Directive None Recorded Payers Insurance Date Sequence Insurance Name Policy Number Policy Martines Covered Member ID Martines Member ID Guarantor Name 05/12/2022 1 DARYL: [facility] (O) [id number] Michael Mckeon [id number] Michael Mckeon 05/12/2022 [employer] LOC[facility] 6 Ri gabrielle Mckeon
== END 2024-08-31 12:04 | disposition home or self-care (01) ==
LOC: HO.HGS 11:29
PROVIDERS: PCP Physician Assistant; Visit Provider Surgery
DX: M96.842 Postprocedural seroma of a musculoskeletal structure following a musculoskeletal system procedure (principal)
CPT/HCPCS: 99213

== ENCOUNTER → 2024-08-31 11:29 | Outpatient (BNVA) | payer BC, SELFPAY | PROVIDERS: PCP Physician Assistant; Visit Provider Surgery ==